=== PATIENT | female | born 1945 | race Caucasian/White ===

== ENCOUNTER → 2016-09-26 | Outpatient (CLI) | payer MEDICARE, BC | LOC: MW.CHFP 08:00 | PROVIDERS: ATTEND Nurse Practitioner Family | DX: J32.9 Chronic sinusitis, unspecified (principal); H10.9 Unspecified conjunctivitis | CPT/HCPCS: G0463 ==

== ENCOUNTER → 2016-10-23 | Outpatient (CLI) | payer MEDICARE, BC | LOC: MW.CHIM 08:00 | PROVIDERS: ATTEND Internal Medicine | DX: H10.33 Unspecified acute conjunctivitis, bilateral (principal) | CPT/HCPCS: G0463 ==

== ENCOUNTER → 2016-11-11 | Outpatient (CLI) | payer MEDICARE, BC ==
[2016-11-11 11:12] LABS: CHLORIDE,CL 105 mmol/L (98-110); SODIUM,NA 140 mmol/L (136-146)
== END ==
LOC: MW.CHIM 10:10
PROVIDERS: ATTEND Internal Medicine
DX: E11.9 Type 2 diabetes mellitus without complications (principal); I10 Essential (primary) hypertension; E78.5 Hyperlipidemia, unspecified
CPT/HCPCS: 36415; 80053; 80061; 83036

== ENCOUNTER → 2016-11-11 | Outpatient (CLI) | payer MEDICARE, BC | END | disposition home or self-care (01) | LOC: MW.LAB 10:08 | PROVIDERS: ATTEND Internal Medicine | DX: E11.9 Type 2 diabetes mellitus without complications (principal); E78.5 Hyperlipidemia, unspecified; I10 Essential (primary) hypertension | CPT/HCPCS: 36415; 80053; 80061; 83036; 84100 ==

== ENCOUNTER → 2016-11-13 | Outpatient (CLI) | payer MEDICARE, BC ==
--- NOTE | 2016-11-13 16:48 | CR ---
EXAMINATION: Two-view chest (PA and Lateral views). HISTORY: Heart failure. Comparison: 08/12/2016, 04/12/2016. FINDINGS: The trachea is midline. The cardiomediastinal silhouette is within normal limits. Mild hazy bibasila r atelectasis/infiltrate. No pleural effusion or pneumothorax. Mild aortic calcifications are noted. Osseous structures appear unremarkable. IMPRESSION: Mild bibasilar atelectasis/infiltrate.
== END ==
LOC: MW.CHIM 14:51
PROVIDERS: ATTEND Internal Medicine
DX: I50.9 Heart failure, unspecified (principal); J40 Bronchitis, not specified as acute or chronic; R91.8 Other nonspecific abnormal finding of lung field; J44.1 Chronic obstructive pulmonary disease with (acute) exacerbation; J84.9 Interstitial pulmonary disease, unspecified; E11.65 Type 2 diabetes mellitus with hyperglycemia; D89.9 Disorder involving the immune mechanism, unspecified
CPT/HCPCS: 36415; 71020; 83880; 85025; 96372; 99214; J1040

== ENCOUNTER → 2016-11-21 | Outpatient (CLI) | payer MEDICARE, BC ==
--- NOTE | 2016-11-21 20:56 | MR ---
EXAM DATE: 11/21/16 PATIENT'S AGE: 70 Patient: MULUGETA RONDON Facility: [place], [place] Site Site : 1945 Study: MRI Abdomen Angio [id number]/[id number] 1:29:37 PM Ordering Physician: GRACE GRIFFITHS MD Final Report: Indication: 70-year-old with hypertension, concern for underlying renal artery stenosis Comparison: None available. Technique: MRI of the abdomen was performed with the following sequences: axial and coronal T2 HASTE, axial T2 fat saturated, axial diffusion, axial T1 in and out of phase, axial and coronal 3D T1 weighted. Postcontrast images were not able to be obtained as patient was unable to tolerate lying supine for the remainder of the examination. Contrast: None. Findings: Please note exam is technically limited due to significant respiratory motion artifact. Additionally, postcontrast imaging of the renal arteries was not obtained as patient could not further tolerate lying supine so remainder of examination. Kidneys: Size: Right kidney measures 9.7 cm and left kidney measures 10.1 cm. Hydronephrosis: Vessels: Renal arteries appear normal in caliber bilaterally without evidence for renal artery stenosis or fibromuscular dysplasia. Retroaortic left renal vein is incidentally noted. Lesions: Bilateral renal cysts are present. Other abdominal organs: Noncirrhotic liver with diffuse signal dropout on opposed phase imaging consistent with fatty infiltration. Gallbladder not visualized and likely surgically absent. No adrenal mass. Spleen is unremarkable. 7 mm T2 hyperintense lesion within the main pancreatic body without demonstrable communication to the main pancreatic duct. Impression: 1. Limited noncontrast MRI evaluation as noted above. No gross evidence for renal artery stenosis or fibromuscular dysplasia. If clinically warranted, further evaluation with renal artery ultrasound may be helpful. 2. Hepatic steatosis. 3. 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 If clinically warranted, further evaluation with MRCP may be helpful. Dictated by George Bess MD @ Nov 21 2016 2:51PM (Electronic Signature) Report Signed by Proxy. [facility]
--- NOTE | 2016-11-21 21:01 | MR ---
EXAM DATE: 11/21/16 PATIENT'S AGE: 70 Patient: MULUGETA RONDON Facility: [place], [place] Site Site : 1945 Study: MRI Abdomen [id number]/12/2017 1:31:20 PM Ordering Physician: GRACE GRIFFITHS MD Final Report: Indication: 70-year-old with hypertension, concern for underlying renal artery stenosis Comparison: None available. Technique: MRI of the abdomen was performed with the following sequences: axial and coronal T2 HASTE, axial T2 fat saturated, axial diffusion, axial T1 in and out of phase, axial and coronal 3D T1 weighted. Postcontrast images were not able to be obtained as patient was unable to tolerate lying supine for the remainder of the examination. Contrast: None. Findings: Please note exam is technically limited due to significant respiratory motion artifact. Additionally, postcontrast imaging of the renal arteries was not obtained as patient could not further tolerate lying supine so remainder of examination. Kidneys: Size: Right kidney measures 9.7 cm and left kidney measures 10.1 cm. Hydronephrosis: Vessels: Renal arteries appear normal in caliber bilaterally without evidence for renal artery stenosis or fibromuscular dysplasia. Retroaortic left renal vein is incidentally noted. Lesions: Bilateral renal cysts are present. Other abdominal organs: Noncirrhotic liver with diffuse signal dropout on opposed phase imaging consistent with fatty infiltration. Gallbladder not visualized and likely surgically absent. No adrenal mass. Spleen is unremarkable. 7 mm T2 hyperintense lesion within the main pancreatic body without demonstrable communication to the main pancreatic duct. Impression: 1. Limited noncontrast MRI evaluation as noted above. No gross evidence for renal artery stenosis or fibromuscular dysplasia. If clinically warranted, further evaluation with renal artery ultrasound may be helpful. 2. Hepatic steatosis. 3. 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 If clinically warranted, further evaluation with MRCP may be helpful. Dictated by George Bess MD @ Nov 21 2016 2:51PM (Electronic Signature) Report Signed by Proxy. [facility]
== END ==
LOC: MW.MRI 09:57
PROVIDERS: ATTEND Internal Medicine
DX: I10 Essential (primary) hypertension (principal); K76.0 Fatty (change of) liver, not elsewhere classified; K86.2 Cyst of pancreas
CPT/HCPCS: 74181; 74181-26; 74185; 74185-26

== ENCOUNTER → 2016-11-24 | Outpatient (CLI) | payer MEDICARE, BC ==
--- NOTE | 2016-11-26 10:43 | ECHO ---
EXAM DATE: 11/24/16 PATIENT'S AGE: 70 The echocardiogram report can be seen in this patient's EMR (Electronic Medical Record) in the Reports section. [facility]
== END ==
LOC: MW.US 10:42
PROVIDERS: ATTEND Internal Medicine
DX: I50.9 Heart failure, unspecified (principal); I34.0 Nonrheumatic mitral (valve) insufficiency; I51.7 Cardiomegaly
CPT/HCPCS: 93306

== ENCOUNTER → 2016-11-27 | Outpatient (CLI) | payer MEDICARE, BC | LOC: MW.CHIM 14:50 | PROVIDERS: ATTEND Internal Medicine | DX: I50.9 Heart failure, unspecified (principal); J44.9 Chronic obstructive pulmonary disease, unspecified; J84.9 Interstitial pulmonary disease, unspecified | CPT/HCPCS: 36415; 80048; 83880; G0463 ==

== ENCOUNTER → 2016-12-02 | Outpatient (CLI) | payer MEDICARE, BC | LOC: MW.LAB 10:07 | PROVIDERS: ATTEND Internal Medicine | DX: I70.1 Atherosclerosis of renal artery (principal); I10 Essential (primary) hypertension | CPT/HCPCS: 36415; 80069 ==

== ENCOUNTER 2017-07-05 09:45 | Inpatient (IN) | payer MEDICARE, BC ==
--- NOTE | 2017-07-05 09:52 | EDM.PDOC ---
ED HPI GENERAL MEDICAL PROBLEM - General Chief Complaint: Respiratory Problem Stated Complaint: AMB Time Seen by Provider: 07/05/17 09:48 Source of Information: Reports: Patient - History of Present Illness INITIAL COMMENTS - FREE TEXT/NARRATIVE: HISTORY AND PHYSICAL: History of present illness: [Patient presents via EMS with shortness of breath and weakness On EMS arrival to her home she was satting 82% on room air generally weak, clinically worsening with minimal effort. They did get her on their gurney and provided albuterol neb and 6 L of oxygen with this she did come up into the 90s for an O2 sat in on arrival she is speaking clearly with no distress and smiling She remains generally weak however in no acute distress at this time No fever nausea vomiting chills sweats no chest pain headache dizziness or palpitation no bowel or urine symptoms] Review of systems: As per history of present illness and below otherwise all systems reviewed and negative. Past medical history: As per history of present illness and as reviewed below otherwise noncontributory. Surgical history: As per history of present illness and as reviewed below otherwise noncontributory. Social history: No reported history of drug or alcohol abuse. Family history: As per history of present illness and as reviewed below otherwise noncontributory. Physical exam: HEENT: Atraumatic, normocephalic, pupils reactive, negative for conjunctival pallor or scleral icterus, mucous membranes moist, throat clear, neck supple, nontender, trachea midline. Lungs: Clear to auscultation, breath sounds equal bilaterally, chest nontender. No accessory muscles Heart: S1S2, regular, negative for clicks, rubs, or JVD. Abdomen: Soft, nondistended, nontender. Negative for masses or hepatosplenomegaly. Negative for costovertebral tenderness. Pelvis: Stable nontender. Genitourinary: Deferred. Rectal: Deferred. Extremities: Atraumatic, negative for cords or calf pain. Neurovascular unremarkable. Neuro: Awake, alert, oriented. Cranial nerves II through XII unremarkable. Cerebellum unremarkable. Motor and sensory unremarkable throughout. Exam nonfocal. Diagnostics: [Chest 1 view Lab as below EKG ] Therapeutics: [Normal saline 1 25 mL per hour Solu-Medrol 125 mg IV Albuterol neb provided in route via EMS O2 remains at 4 L nasal cannula Patient admitted to Dr. Roach ] Impression: [Hypoxia Recent flulike symptoms/pneumonia on digoxin doxycycline History of lung cancer ] Definitive disposition and diagnosis as appropriate pending reevaluation and review of above. headache Pain Score (Numeric/FACES): 6 - Related Data Allergies Allergy/AdvReac Type Severity Reaction Status Date / Time GIGI Inhibitors Allergy Nausea Verified 04/12/16 14:21 amlodipine besylate Allergy Nausea Verified 04/12/16 14:21 [From Lotrel] benazepril HCl [From Lotrel] Allergy Nausea Verified 04/12/16 14:21 cephalexin [Cephalexin] Allergy Nausea Verified 04/12/16 14:21 ibuprofen [From Advil] Allergy Nausea Verified 04/12/16 14:21 levofloxacin [From Levaquin] Allergy Nausea Verified 04/12/16 14:21 metformin Allergy Nausea Verified 04/12/16 14:21 Penicillins Allergy Nausea Verified 04/12/16 14:21 promethazine Allergy Hallucinati Verified 04/12/16 14:21 ons Home Meds: Home Meds Darifenacin [Enablex] 7.5 mg PO DAILY 10/17/13 [History] Doxazosin [Doxazosin Mesylate] 2 mg PO BEDTIME 10/17/13 [History] Montelukast [Singulair] 10 mg PO Q8HR 10/17/13 [History] traMADol [Ultram] 50 mg PO TID PRN 10/17/13 [History] Albuterol [Ventolin HFA] 2 inh IH Q6H PRN 04/12/16 [History] Aspirin [Halfprin] 81 mg PO DAILY 04/12/16 [History] Budesonide/Formoterol [Symbicort 160-4.5 Mcg Inhaler] 2 inh IH BID 04/12/16 [ History] Insulin Aspart [Novolog Flexpen] 35 unit SUBCUT ACBREAKFAST 04/12/16 [History] Insulin Aspart [Novolog Flexpen] 35 units SUBCUT ACDINNER 04/12/16 [History] Insulin Aspart [Novolog Flexpen] 40 units SUBCUT ACLUNCH 04/12/16 [History] Rosuvastatin Calcium [Crestor] 5 mg PO BEDTIME 04/12/16 [History] Past Medical History Cardiovascular History: Reports: Hypertension Respiratory History: Reports: Asthma, Interstitial Lung Disease Musculoskeletal History: Reports: Arthritis, Back Pain, Chronic, Other (See Below) Other Musculoskeletal History: chronic knee pain Neurological History: Reports: Other (See Below) Other Neuro History: restless legs Endocrine/Metabolic History: Reports: Diabetes, Type II, Other (See Below) Other Endocrine/Metabolic History: chronic steriod use Social & Family History - Family History Family Medical History: Noncontributory - Tobacco Use Smoking Status *Q: Never Smoker Years of Tobacco use: 30 Used Tobacco, but Quit: Yes Month Tobacco Last Used: 06/1996 Second Hand Smoke Exposure: No - Caffeine Use Caffeine Use: Reports: None - Alcohol Use Days Per Week of Alcohol Use: 0 - Recreational Drug Use Recreational Drug Use: No ED ROS GENERAL - Review of Systems Review Of Systems: ROS reveals no pertinent complaints other than HPI. ED EXAM, GENERAL - Physical Exam Exam: See Below Course - Vital Signs Last Recorded V/S: Last Vital Signs Temp 98.8 F 07/05/17 09:48 Pulse 81 07/05/17 09:48 Resp 18 07/05/17 09:48 BP 167/56 H 07/05/17 09:48 Pulse Ox 93 L 07/05/17 09:48 - Orders/Labs/Meds Orders: Active Orders 24 hr Category Date Time Status EKG Documentation Completion [RC] STAT Care 07/05/17 09:47 Active Chest 1V Frontal [CR] Stat Exams 07/05/17 09:47 Taken UA W/MICROSCOPIC [URIN] Stat Lab 07/05/17 09:47 Uncollected Sodium Chloride 0.9% [Normal Saline] 1,000 ml Med 07/05/17 10:00 Active IV STAT Medication Orders Sodium Chloride (Normal Saline) 1,000 mls @ 125 mls/hr IV STAT RODRIGO Last Admin: 07/05/17 10:39 Dose: 125 mls/hr Labs: Laboratory Tests 07/05/17 07/05/17 07/05/17 Range/Units 09:59 09:59 09:59 WBC 13.74 H (4.0-11.0) K/uL RBC 3.81 L (4.30-5.90) M/uL Hgb 12.1 (12.0-16.0) g/dL Hct 36.5 (36.0-46.0) % MCV 95.8 (80.0-98.0) fL MCH 31.8 (27.0-32.0) pg MCHC 33.2 (31.0-37.0) g/dL RDW Std Deviation 52.5 (28.0-62.0) fl RDW Coeff of Donovan 15 (11.0-15.0) % Plt Count 213 (150-400) K/uL MPV 9.70 (7.40-12.00) fL Add Manual Diff YES Neutrophils % (Manual) 79 (48.0-80.0) % Lymphocytes % (Manual) 11 L (16.0-40.0) % Monocytes % (Manual) 10 (0.0-15.0) % Nucleated RBC % 0.0 /100WBC Absolute Seg Neuts 10.9 H (1.4-5.7) Lymphocytes # (Manual) 1.5 (0.6-2.4) Monocytes # (Manual) 1.4 H (0.0-0.8) Nucleated RBCs # 0 K/uL Sodium 137 (136-146) mmol/L Potassium 4.5 (3.5-5.1) mmol/L Chloride 103 (98-110) mmol/L Carbon Dioxide 22 (21-31) mmol/L BUN 15 (6.0-23.0) mg/dL Creatinine 0.8 (0.6-1.5) mg/dL Est Cr Clr Drug Dosing 53.35 mL/min Estimated GFR (MDRD) > 60.0 ml/min Glucose 211 H (60-110) mg/dL Calcium 9.4 (8.8-10.8) mg/dL Total Bilirubin 1.1 (0.1-1.5) mg/dL AST 17 (5-40) IU/L ALT 23 (8-54) IU/L Alkaline Phosphatase 71 (40-150) Creatine Kinase 23 (9-236) IU/L CK-MB (CK-2) 0.7 (0-6.6) ng/ml Troponin I < 0.10 (0.0-0.29) NG/ML B-Natriuretic Peptide 328 H (<100) PG/ML Total Protein 6.2 (6.0-8.0) g/dL Albumin 3.0 L (3.4-4.8) g/dL Globulin 3.2 (2.0-3.5) g/dL Albumin/Globulin Ratio 0.9 L (1.3-2.8) Meds: Medications Generic Name Dose Route Start Last Admin Trade Name Jaclyn PRN Reason Stop Dose Admin Sodium Chloride 1,000 mls @ 125 mls/hr 07/05/17 10:00 07/05/17 10:39 Normal Saline IV 125 mls/hr STAT RODRIGO Administration Discontinued Medications Generic Name Dose Route Start Last Admin Trade Name Jaclyn PRN Reason Stop Dose Admin Acetaminophen 650 mg 07/05/17 10:41 Tylenol PO 07/05/17 10:42 NOW ONE Furosemide Confirm 07/05/17 11:24 Lasix Administered 07/05/17 11:25 Dose 40 mg .ROUTE .STK-MED ONE Sodium Chloride Confirm 07/05/17 11:29 Normal Saline Administered 07/05/17 11:30 Dose 50 mls @ as directed .ROUTE .STK-MED ONE Methylprednisolone Sodium Succinate Confirm 07/05/17 11:26 Solu-Medrol Administered 07/05/17 11:27 Dose 125 mg .ROUTE .STK-MED ONE Departure - Departure Time of Disposition: 17:20 Disposition: Admitted As Inpatient 66 Condition: Fair Clinical Impression: Hypoxia, COPD (chronic obstructive pulmonary disease) - Discharge Information Forms: ED Department Discharge - My Orders Last 24 Hours: My Active Orders 07/05/17 09:47 EKG Documentation Completion [RC] STAT Chest 1V Frontal [CR] Stat UA W/MICROSCOPIC [URIN] Stat 07/05/17 10:00 Sodium Chloride 0.9% [Normal Saline] 1,000 ml IV STAT - Assessment/Plan Last 24 Hours: My Active Orders 07/05/17 09:47 EKG Documentation Completion [RC] STAT Chest 1V Frontal [CR] Stat UA W/MICROSCOPIC [URIN] Stat 07/05/17 10:00 Sodium Chloride 0.9% [Normal Saline] 1,000 ml IV STAT
[2017-07-05] MEDS ORDERED: Sodium Chloride 0.9% 1,000 ML IV SCH (10:00)
[2017-07-05 10:28] LABS: CHLORIDE,CL 103 mmol/L (98-110); SODIUM,NA 137 mmol/L (136-146)
[2017-07-05] MEDS ORDERED: Acetaminophen 325 MG Tab PO ONE (10:41)
[2017-07-05] MEDS ORDERED: Furosemide 40 MG/4 ML VIAL ONE (11:24)
[2017-07-05] MEDS ORDERED: methylPREDNISolone Sodium Succinate 125 MG/2 ML SDV ONE (11:26)
[2017-07-05] MEDS ORDERED: Piperacillin/Tazobactam 3.375 GM in Sodium Chloride 0.9% 50 ML IV ONE (11:28)
[2017-07-05] MEDS ORDERED: Furosemide 40 MG/4 ML VIAL IV ONE (11:28)
[2017-07-05] MEDS ORDERED: methylPREDNISolone Sodium Succinate 125 MG/2 ML SDV IM ONE (11:28)
[2017-07-05] MEDS ORDERED: Sodium Chloride 0.9% 50 ML ONE (11:29)
[2017-07-05] MEDS ORDERED: Heparin Sodium 5,000 Units/ML Vial IV ONE (15:06)
[2017-07-05] MEDS ORDERED: Insulin Aspart 100 Units/ML 3 ML Pen SUBCUT ONE (17:14)
[2017-07-05] MEDS: Albuterol/Ipratropium 3.0-0.5 MG/3 ML Neb Soln NEB SCH ×2 (17:58→23:42)
[2017-07-05] MEDS ORDERED: Ondansetron 4 MG Tab.DIS PO PRN (20:59)
[2017-07-05] MEDS ORDERED: Furosemide 40 MG/4 ML VIAL IVPUSH SCH (21:00)
[2017-07-05] MEDS ORDERED: Albuterol/Ipratropium 3.0-0.5 MG/3 ML Neb Soln NEB SCH (21:15)
[2017-07-05] MEDS: Piperacillin/Tazobactam 4.5 GM in Sodium Chloride 0.9% 100 ML IV SCH (21:53)
[2017-07-05] MEDS: Furosemide 40 MG/4 ML VIAL IVPUSH SCH (21:55)
[2017-07-05] MEDS ORDERED: Montelukast 10 MG Tab PO SCH (22:00)
[2017-07-05] MEDS: Heparin Sodium 5,000 Units/ML Vial SUBCUT SCH (22:00)
[2017-07-05] MEDS: Insulin Detemir 100 Units/ML 3 ML Pen SUBCUT SCH (22:04)
[2017-07-05] MEDS: traMADol 50 MG Tab PO PRN (22:16)
[2017-07-05] MEDS ORDERED: hydrALAZINE 20 MG/ML SDV IVPUSH ONE (23:20)
[2017-07-05] MEDS ORDERED: Albuterol/Ipratropium 3.0-0.5 MG/3 ML Neb Soln ONE (23:40)
[2017-07-06] MEDS: Piperacillin/Tazobactam 4.5 GM in Sodium Chloride 0.9% 100 ML IV SCH ×2 (03:38→08:30)
[2017-07-06] MEDS: Heparin Sodium 5,000 Units/ML Vial SUBCUT SCH ×3 (05:46→21:27)
[2017-07-06] MEDS ORDERED: Albuterol/Ipratropium 3.0-0.5 MG/3 ML Neb Soln ONE (05:51)
[2017-07-06] MEDS: Albuterol/Ipratropium 3.0-0.5 MG/3 ML Neb Soln NEB SCH ×4 (05:55→23:19)
[2017-07-06] MEDS ORDERED: Insulin Aspart 100 Units/ML 3 ML Pen SUBCUT SCH ×3 (07:30→17:00)
[2017-07-06 07:37] LABS: CHLORIDE,CL 101 mmol/L (98-110); SODIUM,NA 138 mmol/L (136-146)
--- NOTE | 2017-07-06 07:40 | PCM.HP ---
H&P History of Present Illness - General Date of Service: 07/05/17 Admit Problem/Dx: Admission Diagnosis/Problem Admission Diagnosis/Problem Shortness of breath Source of Information: Patient History Limitations: Reports: No Limitations - History of Present Illness Initial Comments - Free Text/Narative: See computer support specialist system down. headache Pain Score (Numeric/FACES): 5 - Related Data Allergies/Adverse Reactions: Allergies Allergy/AdvReac Type Severity Reaction Status Date / Time GIGI Inhibitors Allergy Nausea Verified 04/12/16 14:21 amlodipine besylate Allergy Nausea Verified 04/12/16 14:21 [From Lotrel] benazepril HCl [From Lotrel] Allergy Nausea Verified 04/12/16 14:21 cephalexin [Cephalexin] Allergy Nausea Verified 04/12/16 14:21 ibuprofen [From Advil] Allergy Nausea Verified 04/12/16 14:21 levofloxacin [From Levaquin] Allergy Nausea Verified 04/12/16 14:21 metformin Allergy Nausea Verified 04/12/16 14:21 Penicillins Allergy Nausea Verified 04/12/16 14:21 promethazine Allergy Hallucinati Verified 04/12/16 14:21 ons Home Medications: Home Meds Darifenacin [Enablex] 7.5 mg PO DAILY 10/17/13 [History] Doxazosin [Doxazosin Mesylate] 8 mg PO BEDTIME 10/17/13 [History] Montelukast [Singulair] 10 mg PO DAILY 10/17/13 [History] traMADol [Ultram] 50 mg PO TID PRN 10/17/13 [History] Albuterol [Ventolin HFA] 2 inh IH Q6H PRN 04/12/16 [History] Aspirin [Halfprin] 81 mg PO DAILY 04/12/16 [History] Budesonide/Formoterol [Symbicort 160-4.5 Mcg Inhaler] 2 inh IH BID 04/12/16 [ History] Insulin Aspart [Novolog Flexpen] 35 unit SUBCUT ACBREAKFAST 04/12/16 [History] Insulin Aspart [Novolog Flexpen] 35 units SUBCUT ACDINNER 04/12/16 [History] Insulin Aspart [Novolog Flexpen] 40 units SUBCUT ACLUNCH 04/12/16 [History] Rosuvastatin Calcium [Crestor] 10 mg PO BEDTIME 04/12/16 [History] Carvedilol 25 mg PO BID 07/06/17 [History] Cholecalciferol (Vitamin D3) [Vitamin D3] 2,000 units PO DAILY 07/06/17 [History ] Fexofenadine [Kim] 180 mg PO DAILY 07/06/17 [History] Ondansetron HCl [Zofran] 4 mg PO TID PRN 07/06/17 [History] Potassium Chloride [Klor-Con M20] 20 meq PO BID 07/06/17 [History] Spironolactone [Aldactone] 25 mg PO DAILY 07/06/17 [History] Ubidecarenone [Coq-10] 100 mg PO DAILY 07/06/17 [History] rOPINIRole HCl [Ropinirole HCl] 0.5 mg PO BEDTIME 07/06/17 [History] Past Medical History HEENT History: Reports: None Cardiovascular History: Reports: Hypertension Respiratory History: Reports: Asthma, Interstitial Lung Disease Gastrointestinal History: Reports: None Genitourinary History: Reports: None 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 Musculoskeletal History: Reports: Arthritis, Back Pain, Chronic, Other (See Below) Other Musculoskeletal History: chronic knee pain Neurological History: Reports: Other (See Below) Other Neuro History: restless legs Psychiatric History: Reports: None Endocrine/Metabolic History: Reports: Diabetes, Type II, Other (See Below) Other Endocrine/Metabolic History: chronic steriod use Hematologic History: Reports: None Immunologic History: Reports: None Oncologic (Cancer) History: Reports: Lung Dermatologic History: Reports: None - Infectious Disease History Infectious Disease History: Reports: Chicken Pox - Past Surgical History Head Surgeries/Procedures: Reports: None HEENT Surgical History: Reports: None Cardiovascular Surgical History: Reports: None Respiratory Surgical History: Reports: Lung Biopsies GI Surgical History: Reports: None Female Surgical History: Reports: None Endocrine Surgical History: Reports: None Neurological Surgical History: Reports: None Musculoskeletal Surgical History: Reports: None Oncologic Surgical History: Reports: None Dermatological Surgical History: Reports: None Social & Family History - Family History Family Medical History: Noncontributory - Tobacco Use Smoking Status *Q: Never Smoker Years of Tobacco use: 30 Used Tobacco, but Quit: Yes Month Tobacco Last Used: 06/1996 Second Hand Smoke Exposure: No - Caffeine Use Caffeine Use: Reports: None - Alcohol Use Days Per Week of Alcohol Use: 0 - Recreational Drug Use Recreational Drug Use: No H&P Review of Systems - Review of Systems: Review Of Systems: See Below Free Text/Narrative: See computer support specialist system down. Exam - Exam Exam: See Below - Vital Signs Vital Signs: Last Vital Signs Temp 97.1 F 07/06/17 03:58 Pulse 74 07/06/17 03:58 Resp 20 07/06/17 03:58 BP 118/59 L 07/06/17 03:58 Pulse Ox 95 07/06/17 03:58 Weight: 121.5 kg - Exam Physical Exam Comments:: See computer support specialist system down. - Patient Data Lab Results Last 24 hrs: Laboratory Results - last 24 hr 07/05/17 07/05/17 07/05/17 Range/Units 13:47 16:53 20:29 WBC (4.0-11.0) K/uL RBC (4.30-5.90) M/uL Hgb (12.0-16.0) g/dL Hct (36.0-46.0) % MCV (80.0-98.0) fL MCH (27.0-32.0) pg MCHC (31.0-37.0) g/dL RDW Std Deviation (28.0-62.0) fl RDW Coeff of Donovan (11.0-15.0) % Plt Count (150-400) K/uL MPV (7.40-12.00) fL Neut % (Auto) (48.0-80.0) % Lymph % (Auto) (16.0-40.0) % [place] % (Auto) (0.0-15.0) % Eos % (Auto) (0.0-7.0) % Baso % (Auto) (0.0-1.5) % Neut # (Auto) (1.4-5.7) K/uL Lymph # (Auto) (0.6-2.4) K/uL [place] # (Auto) (0.0-0.8) K/uL Eos # (Auto) (0.0-0.7) K/uL Baso # (Auto) (0.0-0.1) K/uL Nucleated RBC % /100WBC Nucleated RBCs # K/uL Lactate 1.3 (0.20-2.00) mmol/L POC Glucose 223 H 344 H (60-110) mg/dL 07/05/17 07/06/17 07/06/17 Range/Units 21:16 06:18 06:25 WBC 10.46 (4.0-11.0) K/uL RBC 3.74 L (4.30-5.90) M/uL Hgb 11.9 L (12.0-16.0) g/dL Hct 34.9 L (36.0-46.0) % MCV 93.3 (80.0-98.0) fL MCH 31.8 (27.0-32.0) pg MCHC 34.1 (31.0-37.0) g/dL RDW Std Deviation 50.7 (28.0-62.0) fl RDW Coeff of [place] 15 (11.0-15.0) % Plt Count 227 (150-400) K/uL MPV 9.80 (7.40-12.00) fL Neut % (Auto) 86.3 H (48.0-80.0) % Lymph % (Auto) 7.3 L (16.0-40.0) % [place] % (Auto) 6.3 (0.0-15.0) % Eos % (Auto) 0.0 (0.0-7.0) % Baso % (Auto) 0.1 (0.0-1.5) % Neut # (Auto) 9.0 H (1.4-5.7) K/uL Lymph # (Auto) 0.8 (0.6-2.4) K/uL [place] # (Auto) 0.7 (0.0-0.8) K/uL Eos # (Auto) 0.0 (0.0-0.7) K/uL Baso # (Auto) 0.0 (0.0-0.1) K/uL Nucleated RBC % 0.0 /100WBC Nucleated RBCs # 0 K/uL Lactate (0.20-2.00) mmol/L POC Glucose 310 H 284 H (60-110) mg/dL Result Diagrams: 07/06/17 06:25 07/05/17 09:59 *Q Meaningful Use (ADM) - VTE *Q VTE Criteria *Q: - Stroke *Q Stroke Criteria *Q: - AMI *Q AMI Criteria *Q: Problem List Initiated/Reviewed/Updated: Yes Orders Last 24hrs: Active Orders 24 hr Category Date Time Status Patient Status [ADT] Routine ADT 07/05/17 20:59 Active Antiembolic Devices [RC] PER UNIT ROUTINE Care 07/05/17 21:02 Active Blood Glucose Check, Bedside [RC] QIDACANDBED Care 07/05/17 20:59 Active Daily Weight [Height and Weight] [RC] DAILY Care 07/06/17 06:00 Active Intake and Output [RC] Q12H Care 07/05/17 21:01 Active Oxygen Therapy [RC] PRN Care 07/05/17 20:59 Active RT Aerosol Therapy [RC] ASDIRECTED Care 07/05/17 17:57 Active RT Aerosol Therapy [RC] ASDIRECTED Care 07/05/17 21:10 Active Telemetry Monitoring [Cardiac Monitoring] [RC] Q8H Care 07/06/17 13:12 Active Up With Assistance [RC] ASDIRECTED Care 07/05/17 20:59 Active VTE/DVT Education [RC] PER UNIT ROUTINE Care 07/05/17 20:59 Active Vital Signs [RC] Q4H Care 07/05/17 20:59 Active Echo 2D wo Cont [US] Routine Exams 07/05/17 21:05 Ordered CBC WITH AUTO DIFF [HEME] AM Lab 07/07/17 05:11 Ordered CBC WITH AUTO DIFF [HEME] AM Lab 07/08/17 05:11 Ordered CBC WITH AUTO DIFF [HEME] AM Lab 07/09/17 05:11 Ordered COMPREHENSIVE METABOLIC PN,CMP [CHEM] AM Lab 07/06/17 06:25 Received COMPREHENSIVE METABOLIC PN,CMP [CHEM] AM Lab 07/07/17 05:11 Ordered COMPREHENSIVE METABOLIC PN,CMP [CHEM] AM Lab 07/08/17 05:11 Ordered COMPREHENSIVE METABOLIC PN,CMP [CHEM] AM Lab 07/09/17 05:11 Ordered CULTURE BLOOD [BC] Routine Lab 07/05/17 13:30 Received CULTURE BLOOD [BC] Routine Lab 07/05/17 13:47 Received CULTURE SPUTUM + SMEAR [RM] Routine Lab 07/05/17 12:20 Uncollected MAGNESIUM [CHEM] AM Lab 07/06/17 06:25 Received PHOSPHORUS [CHEM] AM Lab 07/06/17 06:25 Received Albuterol/Ipratropium [DuoNeb 3.0-0.5 MG/3 ML] Med 07/05/17 18:00 Active 3 ml NEB Q6HRRT Aspirin [Halfprin] Med 07/06/17 09:00 Active 81 mg PO DAILY Budesonide/Formoterol Med 07/06/17 09:00 Active 2 inh IH BID Darifenacin [Enablex] Med 07/06/17 09:00 Active 7.5 mg PO DAILY Doxazosin [Cardura] Med 07/06/17 21:00 Active 2 mg PO BEDTIME Furosemide [Lasix] Med 07/05/17 21:15 Active 80 mg IVPUSH BID Heparin Sodium Med 07/05/17 21:00 Active 5,000 units SUBCUT Q8H Insulin Aspart [NovoLOG] Med 07/06/17 07:30 Active 35 unit SUBCUT ACBREAKFAST Insulin Aspart [NovoLOG] Med 07/06/17 17:00 Active 35 unit SUBCUT ACDINNER Insulin Aspart [NovoLOG] Med 07/06/17 11:30 Active 40 unit SUBCUT ACLUNCH Insulin Detemir [Levemir] Med 07/05/17 21:00 Active 55 unit SUBCUT BEDTIME Montelukast [Singulair] Med 07/06/17 09:00 Active 10 mg PO DAILY Ondansetron [Zofran ODT] Med 07/05/17 20:59 Active 4 mg PO Q4H PRN Piperacillin/Tazobactam [Piperacil-Tazobact] 4.5 gm Med 07/05/17 21:00 Active Sodium Chloride 0.9% [Normal Saline] 100 ml IV Q6H Rosuvastatin [Crestor] Med 07/06/17 21:00 Active 5 mg PO BEDTIME traMADol [Ultram] Med 07/05/17 21:07 Active 50 mg PO TID PRN Sequential Compression Device [OM.PC] Per Unit Routine Oth 07/05/17 21:01 Ordered Resuscitation Status Routine Resus Stat 07/05/17 20:59 Ordered Medication Orders Albuterol/Ipratropium (Duoneb 3.0-0.5 Mg/3 Ml) 3 ml NEB Q6HRRT RODRIGO Last Admin: 07/06/17 05:55 Dose: 3 ml Admin: 07/05/17 23:42 Dose: 3 ml Admin: 07/05/17 17:58 Dose: 3 ml Aspirin (Halfprin) 81 mg PO DAILY [facility] Doxazosin Mesylate (Cardura) 2 mg PO BEDTIME RODRIGO Furosemide (Lasix) 80 mg IVPUSH BID [facility] Last Admin: 07/05/17 21:55 Dose: 80 mg Heparin Sodium (Porcine) (Heparin Sodium) 5,000 units SUBCUT Q8H [facility] Last Admin: 07/06/17 05:46 Dose: 5,000 units Admin: 07/05/17 22:00 Dose: 5,000 units Piperacillin Sod/Tazobactam (Sod 4.5 gm/ Sodium Chloride) 100 mls @ 100 mls/hr IV Q6H [facility] Last Admin: 07/06/17 03:38 Dose: 100 mls/hr Infusion: 07/05/17 22:53 Dose: 100 mls/hr Admin: 07/05/17 21:53 Dose: 100 mls/hr Insulin Aspart (Novolog) 35 unit SUBCUT ACBREAKFAST [facility] Last Admin: 07/06/17 07:20 Dose: 35 unit Insulin Aspart (Novolog) 35 unit SUBCUT ACDINNER [facility] Insulin Aspart (Novolog) 40 unit SUBCUT ACLUNCH [facility] Insulin Detemir (Levemir) 55 unit SUBCUT BEDTIME [facility] Last Admin: 07/05/17 22:04 Dose: 55 units Montelukast Sodium (Singulair) 10 mg PO DAILY [facility] Non-Formulary Medication (Budesonide/Formoterol) 2 inh IH BID [facility] Non-Formulary Medication (Darifenacin [Enablex]) 7.5 mg PO DAILY [facility] Ondansetron HCl (Zofran Odt) 4 mg PO Q4H PRN PRN Reason: nausea, able to take PO Rosuvastatin Calcium (Crestor) 5 mg PO BEDTIME [facility] Tramadol HCl (Ultram) 50 mg PO TID PRN PRN Reason: Pain Last Admin: 07/05/17 22:16 Dose: 50 mg Assessment/Plan Comment:: See computer support specialist system down.
[2017-07-06] MEDS: Montelukast 10 MG Tab PO SCH (08:34)
[2017-07-06] MEDS: Aspirin 81 MG Tab.EC PO SCH (08:35)
[2017-07-06] MEDS: Furosemide 40 MG/4 ML VIAL IVPUSH SCH ×2 (08:35→21:20)
--- NOTE | 2017-07-06 08:43 | PCM.PN ---
- General Info Date of Service: 07/06/17 Admission Dx/Problem (Free Text): Admission Diagnosis/Problem Admission Diagnosis/Problem Shortness of breath Subjective Update: Tired this morning. Didn't sleep that well. Breathing still labored. Has been urinating well with lasix. No pain. Feels like edema has improved. Functional Status: Reports: Pain Controlled, Tolerating Diet - Review of Systems General: Denies: Fever, Weakness, Fatigue HEENT: Reports: Sore Throat. Denies: Headaches, Visual Changes Pulmonary: Denies: Shortness of Breath, Hemoptysis Cardiovascular: Reports: Edema. Denies: Chest Pain, Palpitations Gastrointestinal: Denies: Abdominal Pain, Nausea, Vomiting Genitourinary: Denies: Dysuria, Hematuria Musculoskeletal: Denies: Neck Pain, Leg Pain Skin: Denies: Cyanosis Neurological: Denies: Confusion, Dizziness, Headache Psychiatric: Denies: Confusion - Patient Data Vitals - Most Recent: Last Vital Signs Temp 97.5 F 07/06/17 07:46 Pulse 79 07/06/17 07:46 Resp 18 07/06/17 07:46 BP 157/59 H 07/06/17 07:46 Pulse Ox 96 07/06/17 07:46 Weight - Most Recent: 121.5 kg I&O - Last 24 Hours: Intake & Output 07/05/17 07/06/17 07/06/17 22:59 06:59 14:59 Intake Total 100 400 Output Total 2700 Balance 100 -2300 Lab Results Last 24 Hours: Laboratory Results - last 24 hr 07/05/17 07/05/17 07/05/17 Range/Units 13:47 16:53 20:29 WBC (4.0-11.0) K/uL RBC (4.30-5.90) M/uL Hgb (12.0-16.0) g/dL Hct (36.0-46.0) % MCV (80.0-98.0) fL MCH (27.0-32.0) pg MCHC (31.0-37.0) g/dL RDW Std Deviation (28.0-62.0) fl RDW Coeff of Donovan (11.0-15.0) % Plt Count (150-400) K/uL MPV (7.40-12.00) fL Neut % (Auto) (48.0-80.0) % Lymph % (Auto) (16.0-40.0) % Cameron % (Auto) (0.0-15.0) % Eos % (Auto) (0.0-7.0) % Baso % (Auto) (0.0-1.5) % Neut # (Auto) (1.4-5.7) K/uL Lymph # (Auto) (0.6-2.4) K/uL Cameron # (Auto) (0.0-0.8) K/uL Eos # (Auto) (0.0-0.7) K/uL Baso # (Auto) (0.0-0.1) K/uL Nucleated RBC % /100WBC Nucleated RBCs # K/uL Lactate 1.3 (0.20-2.00) mmol/L Sodium (136-146) mmol/L Potassium (3.5-5.1) mmol/L Chloride (98-110) mmol/L Carbon Dioxide (21-31) mmol/L BUN (6.0-23.0) mg/dL Creatinine (0.6-1.5) mg/dL Est Cr Clr Drug Dosing mL/min Estimated GFR (MDRD) ml/min Glucose (60-110) mg/dL POC Glucose 223 H 344 H (60-110) mg/dL Calcium (8.8-10.8) mg/dL Phosphorus (2.4-4.7) mg/dL Magnesium (1.5-2.3) mEq/L Total Bilirubin (0.1-1.5) mg/dL AST (5-40) IU/L ALT (8-54) IU/L Alkaline Phosphatase (40-150) Total Protein (6.0-8.0) g/dL Albumin (3.4-4.8) g/dL Globulin (2.0-3.5) g/dL Albumin/Globulin Ratio (1.3-2.8) 07/05/17 07/06/17 07/06/17 Range/Units 21:16 06:18 06:25 WBC 10.46 (4.0-11.0) K/uL RBC 3.74 L (4.30-5.90) M/uL Hgb 11.9 L (12.0-16.0) g/dL Hct 34.9 L (36.0-46.0) % MCV 93.3 (80.0-98.0) fL MCH 31.8 (27.0-32.0) pg MCHC 34.1 (31.0-37.0) g/dL RDW Std Deviation 50.7 (28.0-62.0) fl RDW Coeff of Donovan 15 (11.0-15.0) % Plt Count 227 (150-400) K/uL MPV 9.80 (7.40-12.00) fL Neut % (Auto) 86.3 H (48.0-80.0) % Lymph % (Auto) 7.3 L (16.0-40.0) % Cameron % (Auto) 6.3 (0.0-15.0) % Eos % (Auto) 0.0 (0.0-7.0) % Baso % (Auto) 0.1 (0.0-1.5) % Neut # (Auto) 9.0 H (1.4-5.7) K/uL Lymph # (Auto) 0.8 (0.6-2.4) K/uL Cameron # (Auto) 0.7 (0.0-0.8) K/uL Eos # (Auto) 0.0 (0.0-0.7) K/uL Baso # (Auto) 0.0 (0.0-0.1) K/uL Nucleated RBC % 0.0 /100WBC Nucleated RBCs # 0 K/uL Lactate (0.20-2.00) mmol/L Sodium (136-146) mmol/L Potassium (3.5-5.1) mmol/L Chloride (98-110) mmol/L Carbon Dioxide (21-31) mmol/L BUN (6.0-23.0) mg/dL Creatinine (0.6-1.5) mg/dL Est Cr Clr Drug Dosing mL/min Estimated GFR (MDRD) ml/min Glucose (60-110) mg/dL POC Glucose 310 H 284 H (60-110) mg/dL Calcium (8.8-10.8) mg/dL Phosphorus (2.4-4.7) mg/dL Magnesium (1.5-2.3) mEq/L Total Bilirubin (0.1-1.5) mg/dL AST (5-40) IU/L ALT (8-54) IU/L Alkaline Phosphatase (40-150) Total Protein (6.0-8.0) g/dL Albumin (3.4-4.8) g/dL Globulin (2.0-3.5) g/dL Albumin/Globulin Ratio (1.3-2.8) 07/06/17 Range/Units 06:25 WBC (4.0-11.0) K/uL RBC (4.30-5.90) M/uL Hgb (12.0-16.0) g/dL Hct (36.0-46.0) % MCV (80.0-98.0) fL MCH (27.0-32.0) pg MCHC (31.0-37.0) g/dL RDW Std Deviation (28.0-62.0) fl RDW Coeff of Donovan (11.0-15.0) % Plt Count (150-400) K/uL MPV (7.40-12.00) fL Neut % (Auto) (48.0-80.0) % Lymph % (Auto) (16.0-40.0) % Cameron % (Auto) (0.0-15.0) % Eos % (Auto) (0.0-7.0) % Baso % (Auto) (0.0-1.5) % Neut # (Auto) (1.4-5.7) K/uL Lymph # (Auto) (0.6-2.4) K/uL Cameron # (Auto) (0.0-0.8) K/uL Eos # (Auto) (0.0-0.7) K/uL Baso # (Auto) (0.0-0.1) K/uL Nucleated RBC % /100WBC Nucleated RBCs # K/uL Lactate (0.20-2.00) mmol/L Sodium 138 (136-146) mmol/L Potassium 3.5 (3.5-5.1) mmol/L Chloride 101 (98-110) mmol/L Carbon Dioxide 22 (21-31) mmol/L BUN 23 (6.0-23.0) mg/dL Creatinine 0.9 (0.6-1.5) mg/dL Est Cr Clr Drug Dosing 47.43 mL/min Estimated GFR (MDRD) > 60.0 ml/min Glucose 348 H (60-110) mg/dL POC Glucose (60-110) mg/dL Calcium 8.8 (8.8-10.8) mg/dL Phosphorus 3.3 (2.4-4.7) mg/dL Magnesium 1.3 L (1.5-2.3) mEq/L Total Bilirubin 0.8 (0.1-1.5) mg/dL AST 18 (5-40) IU/L ALT 24 (8-54) IU/L Alkaline Phosphatase 70 (40-150) Total Protein 6.3 (6.0-8.0) g/dL Albumin 2.8 L (3.4-4.8) g/dL Globulin 3.5 (2.0-3.5) g/dL Albumin/Globulin Ratio 0.8 L (1.3-2.8) Med Orders - Current: Current Medications Albuterol/Ipratropium (Duoneb 3.0-0.5 Mg/3 Ml) 3 ml NEB Q6HRRT [facility] Aspirin (Halfprin) 81 mg PO DAILY [facility] Last Admin: 07/06/17 08:35 Dose: 81 mg Doxazosin Mesylate (Cardura) 2 mg PO BEDTIME [facility] Furosemide (Lasix) 80 mg IVPUSH BID [facility] Last Admin: 07/06/17 08:35 Dose: 80 mg Heparin Sodium (Porcine) (Heparin Sodium) 5,000 units SUBCUT Q8H [facility] Last Admin: 07/06/17 05:46 Dose: 5,000 units Piperacillin Sod/Tazobactam (Sod 4.5 gm/ Sodium Chloride) 100 mls @ 100 mls/hr IV Q6H [facility] Last Admin: 07/06/17 08:30 Dose: 100 mls/hr Insulin Aspart (Novolog) 40 unit SUBCUT ACLUNCH [facility] Insulin Aspart (Novolog) 35 unit SUBCUT 0730,1700 [facility] Insulin Detemir (Levemir) 55 unit SUBCUT BEDTIME [facility] Last Admin: 07/05/17 22:04 Dose: 55 units Montelukast Sodium (Singulair) 10 mg PO DAILY [facility] Last Admin: 07/06/17 08:34 Dose: 10 mg Non-Formulary Medication (Budesonide/Formoterol) 2 inh IH BID [facility] Non-Formulary Medication (Darifenacin [Enablex]) 7.5 mg PO DAILY [facility] Ondansetron HCl (Zofran Odt) 4 mg PO Q4H PRN PRN Reason: nausea, able to take PO Rosuvastatin Calcium (Crestor) 5 mg PO BEDTIME [facility] Tramadol HCl (Ultram) 50 mg PO TID PRN PRN Reason: Pain Last Admin: 07/05/17 22:16 Dose: 50 mg Discontinued Medications Acetaminophen (Tylenol) 650 mg PO NOW ONE Stop: 07/05/17 10:42 Last Admin: 07/05/17 23:51 Dose: Not Given Albuterol/Ipratropium (Duoneb 3.0-0.5 Mg/3 Ml) 3 ml NEB Q6HRRT [facility] Last Admin: 07/06/17 05:55 Dose: 3 ml Albuterol/Ipratropium (Duoneb 3.0-0.5 Mg/3 Ml) 3 ml NEB Q4H [facility] Last Admin: 07/05/17 23:52 Dose: Not Given Albuterol/Ipratropium (Duoneb 3.0-0.5 Mg/3 Ml) Confirm Administered Dose 3 ml .ROUTE .STK-MED ONE Stop: 07/05/17 23:41 Last Admin: 07/05/17 23:52 Dose: Not Given Albuterol/Ipratropium (Duoneb 3.0-0.5 Mg/3 Ml) Confirm Administered Dose 3 ml .ROUTE .STK-MED ONE Stop: 07/06/17 05:52 Last Admin: 07/06/17 07:44 Dose: Not Given Furosemide (Lasix) Confirm Administered Dose 40 mg .ROUTE .STK-MED ONE Stop: 07/05/17 11:25 Last Admin: 07/05/17 23:51 Dose: Not Given Furosemide (Lasix) 80 mg IVPUSH BID [facility] Last Admin: 07/05/17 23:52 Dose: Not Given Hydralazine HCl (Apresoline) 10 mg IVPUSH ONETIME ONE Stop: 07/05/17 23:21 Last Admin: 07/05/17 23:44 Dose: 10 mg Sodium Chloride (Normal Saline) 1,000 mls @ 125 mls/hr IV STAT [facility] Last Admin: 07/05/17 10:39 Dose: 125 mls/hr Sodium Chloride (Normal Saline) Confirm Administered Dose 50 mls @ as directed .ROUTE .STK-MED ONE Stop: 07/05/17 11:30 Last Admin: 07/05/17 23:52 Dose: Not Given Insulin Aspart (Novolog) 35 unit SUBCUT ACBREAKFAST [facility] Last Admin: 07/06/17 07:20 Dose: 35 unit Insulin Aspart (Novolog) 35 unit SUBCUT ACDINNER [facility] Methylprednisolone Sodium Succinate (Solu-Medrol) Confirm Administered Dose 125 mg .ROUTE .STK-MED ONE Stop: 07/05/17 11:27 Last Admin: 07/05/17 23:52 Dose: Not Given Montelukast Sodium (Singulair) 10 mg PO Q8HR [facility] Last Admin: 07/06/17 03:14 Dose: Not Given - Exam Quality Assessment: DVT Prophylaxis General: Alert, Oriented, Cooperative HEENT: Pupils Equal, Pupils Reactive, EOMI, Mucous Membr. Moist/[place] Neck: Supple, Trachea Midline, JVD Lungs: Normal Respiratory Effort, Crackles, Wheezing Cardiovascular: Regular Rate, Regular Rhythm, Murmurs GI/Abdominal Exam: Normal Bowel Sounds, Soft, Non-Tender, No Organomegaly, No Distention Back Exam: Normal Inspection, Full Range of Motion Extremities: Normal Inspection, Non-Tender, Normal Capillary Refill, Pedal Edema (+2 pitting edema to ankles) Peripheral Pulses: 2+: Radial (L), Radial (R), Posterior Tibial (L), Posterior Tibial (R), Dorsalis Pedis (L), Dorsalis Pedis (R) Skin: Warm, Dry, Intact Neurological: No New Focal Deficit Psy/Mental Status: Alert, Normal Affect, Normal Mood - Problem List & Annotations (1) Pneumonia SNOMED Code(s): 695996106 Code(s): J18.9 - PNEUMONIA, UNSPECIFIED ORGANISM Status: Acute Priority: High Current Visit: Yes Qualifiers: Pneumonia type: due to unspecified organism Laterality: unspecified laterality Lung location: unspecified part of lung Qualified Code(s): J18.9 - Pneumonia, unspecified organism (2) Acute exacerbation of CHF (congestive heart failure) SNOMED Code(s): 86045670 Code(s): I50.9 - HEART FAILURE, UNSPECIFIED Status: Acute Priority: High Current Visit: Yes Qualifiers: Congestive heart failure type: unspecified congestive heart failure type Qualified Code(s): I50.9 - Heart failure, unspecified (3) Hypertension SNOMED Code(s): 92663044 Code(s): I10 - ESSENTIAL (PRIMARY) HYPERTENSION Status: Acute Current Visit: Yes Qualifiers: Hypertension type: essential hypertension Qualified Code(s): I10 - Essential (primary) hypertension (4) Interstitial pulmonary disease SNOMED Code(s): 264652531 Code(s): J84.9 - INTERSTITIAL PULMONARY DISEASE, UNSPECIFIED Status: Chronic Priority: High Current Visit: Yes (5) Diabetes mellitus SNOMED Code(s): 66456474 Code(s): E11.9 - TYPE 2 DIABETES MELLITUS WITHOUT COMPLICATIONS Status: Chronic Priority: Medium Current Visit: Yes Qualifiers: Diabetes mellitus type: type 2 Diabetes mellitus complication status: with circulatory complication Diabetes mellitus complication detail: with other circulatory complications Diabetes mellitus retirement insulin use: unspecified retirement insulin use status Qualified Code(s): E11.59 - Type 2 diabetes mellitus with other circulatory complications (6) COPD (chronic obstructive pulmonary disease) SNOMED Code(s): 40693751 Code(s): J44.9 - CHRONIC OBSTRUCTIVE PULMONARY DISEASE, UNSPECIFIED Status : Chronic Priority: High Current Visit: Yes Qualifiers: COPD type: unspecified COPD Qualified Code(s): J44.9 - Chronic obstructive pulmonary disease, unspecified - Problem List Review Problem List Initiated/Reviewed/Updated: Yes - My Orders Last 24 Hours: My Active Orders 07/05/17 12:20 CULTURE SPUTUM + SMEAR [] Routine 07/05/17 20:59 Patient Status [ADT] Routine Blood Glucose Check, Bedside [RC] QIDACANDBED Oxygen Therapy [RC] PRN Up With Assistance [RC] ASDIRECTED VTE/DVT Education [RC] PER UNIT ROUTINE Vital Signs [RC] Q4H Ondansetron [Zofran ODT] 4 mg PO Q4H PRN Resuscitation Status Routine 07/05/17 21:00 Heparin Sodium 5,000 units SUBCUT Q8H Insulin Detemir [Levemir] 55 unit SUBCUT BEDTIME Piperacillin/Tazobactam [Piperacil-Tazobact] 4.5 gm Sodium Chloride 0.9% [ Normal Saline] 100 ml IV Q6H 07/05/17 21:01 Intake and Output [RC] Q12H Sequential Compression Device [OM.PC] Per Unit Routine 07/05/17 21:02 Antiembolic Devices [RC] PER UNIT ROUTINE 07/05/17 21:05 Echo 2D wo Cont [US] Routine 07/05/17 21:07 traMADol [Ultram] 50 mg PO TID PRN 07/05/17 21:10 RT Aerosol Therapy [RC] ASDIRECTED 07/05/17 21:15 Furosemide [Lasix] 80 mg IVPUSH BID 07/06/17 06:00 Daily Weight [Height and Weight] [RC] DAILY 07/06/17 09:00 Aspirin [Halfprin] 81 mg PO DAILY Budesonide/Formoterol 2 inh IH BID Darifenacin [Enablex] 7.5 mg PO DAILY Montelukast [Singulair] 10 mg PO DAILY 07/06/17 11:30 Insulin Aspart [NovoLOG] 40 unit SUBCUT ACLUNCH 07/06/17 13:12 Telemetry Monitoring [Cardiac Monitoring] [RC] Q8H 07/06/17 17:00 Insulin Aspart [NovoLOG] 35 unit SUBCUT 0730,1700 07/06/17 21:00 Doxazosin [Cardura] 2 mg PO BEDTIME Rosuvastatin [Crestor] 5 mg PO BEDTIME 07/07/17 05:11 CBC WITH AUTO DIFF [HEME] AM COMPREHENSIVE METABOLIC PN,CMP [CHEM] AM 07/08/17 05:11 CBC WITH AUTO DIFF [HEME] AM COMPREHENSIVE METABOLIC PN,CMP [CHEM] AM 07/09/17 05:11 CBC WITH AUTO DIFF [HEME] AM COMPREHENSIVE METABOLIC PN,CMP [CHEM] AM - Plan Plan:: 71-year-old female admitted 07/05/17 for shortness of breath suspected pneumonia and CHF exacerbation with PMH of CHF, hypertension, CAD, [place] in 2009, COPD, interstitial lung disease, and type 2 insulin-dependent diabetes. Pneumonia: In emergency department chest x-ray was somewhat suggestive of pneumonia and patient did have leukocytosis of 13,000. She was placed on Zosyn 4.5 g IV every 6 hours which we will continue. Patient has been afebrile. Sputum and blood cultures are pending. Influenza swab was negative. Urinalysis negative and urine culture pending. Influenza negative CHF exacerbation: BNP 328 on admission last BMP on 05/06/17 was 109. Patient was given 80 mg IV Lasix twice a day with good urine output of 2200 yesterday. Continue daily weights, strict I&O, fluid limit 1500 and telemetry. Echocardiogram was ordered but not available until Thursday07/07/17. Patient believes her last echocardiogram was possibly in November. Will continue 80 mg IV Lasix twice a day monitoring for contraction alkalosis. COPD: History of COPD as well as interstitial lung disease. We'll continue duo nebs scheduled every 6 hours. Will consider steroids if breathing does not improve with diuresis. Patient also states she has a history of lung cancer. She sees Dr. Mesa in [facility]. We will need to get the records from them when they are available. Hypertension: Currently stable continue home medications Type 2 diabetes: Initially placed on home insulin scheduling of 55 units of Humira bedtime, 35 units NovoLog in a.m., 40 units at noon, and 35 units in the evening. May need to transition to high-dose insulin sliding scale. Continue to monitor. VT prophylaxis: SCD, heparin every 8 hours Disposition: 2-3 days.
[2017-07-06] MEDS ORDERED: Non-Formulary Medication 1 Each (Budesonide/Formoterol 2 INH) IH SCH (09:00)
[2017-07-06] MEDS ORDERED: DARIFENACIN 7.5 MG PO SCH (09:00)
[2017-07-06] MEDS: SYMBICORT 160/4.5 INH SCH ×2 (09:39→21:27)
[2017-07-06] MEDS: DARIFENACIN 7.5 MG PO SCH (09:39)
[2017-07-06] MEDS ORDERED: Magnesium Sulfate/Water 4 GM in Premix Bag 1 BAG IV ONE (10:36)
[2017-07-06] MEDS: Piperacillin/Tazobactam 3.375 GM in Sodium Chloride 0.9% 50 ML IV SCH ×2 (15:05→21:17)
[2017-07-06] MEDS: Insulin Aspart 100 Units/ML 3 ML Pen SUBCUT SCH (17:41)
[2017-07-06] MEDS: Doxazosin 4 MG Tab PO SCH (21:16)
[2017-07-06] MEDS: Rosuvastatin 10 MG Tab PO SCH (21:16)
[2017-07-06] MEDS: Insulin Detemir 100 Units/ML 3 ML Pen SUBCUT SCH (21:31)
[2017-07-06] MEDS: traMADol 50 MG Tab PO PRN (23:17)
[2017-07-07] MEDS: Piperacillin/Tazobactam 3.375 GM in Sodium Chloride 0.9% 50 ML IV SCH ×4 (02:52→20:30)
[2017-07-07] MEDS: Heparin Sodium 5,000 Units/ML Vial SUBCUT SCH ×3 (05:29→20:44)
[2017-07-07] MEDS: Albuterol/Ipratropium 3.0-0.5 MG/3 ML Neb Soln NEB SCH ×3 (06:16→19:20)
[2017-07-07] MEDS: Aspirin 81 MG Tab.EC PO SCH (08:49)
[2017-07-07] MEDS: Furosemide 40 MG/4 ML VIAL IVPUSH SCH (08:49)
[2017-07-07] MEDS: Montelukast 10 MG Tab PO SCH (08:49)
[2017-07-07] MEDS: traMADol 50 MG Tab PO PRN (09:12)
[2017-07-07] MEDS: DARIFENACIN 7.5 MG PO SCH (09:13)
[2017-07-07] MEDS: SYMBICORT 160/4.5 INH SCH ×2 (09:13→20:41)
[2017-07-07] MEDS: Insulin Aspart 100 Units/ML 3 ML Pen SUBCUT SCH ×3 (10:38→17:40)
--- NOTE | 2017-07-07 10:39 | PCM.PN ---
- General Info Date of Service: 07/07/17 Admission Dx/Problem (Free Text): Admission Diagnosis/Problem Admission Diagnosis/Problem Shortness of breath Subjective Update: No overnight events. Patient states she is feeling much better today. Her breathing has improved and her pedal edema has resolved. She is still requiring supplementary oxygen. Functional Status: Reports: Pain Controlled, Tolerating Diet, Ambulating, Urinating - Review of Systems General: Reports: No Symptoms HEENT: Reports: No Symptoms Pulmonary: Reports: Shortness of Breath (improving) Cardiovascular: Reports: No Symptoms Gastrointestinal: Reports: No Symptoms Genitourinary: Reports: No Symptoms Musculoskeletal: Reports: No Symptoms Skin: Reports: No Symptoms Neurological: Reports: No Symptoms Psychiatric: Reports: No Symptoms - Patient Data Vitals - Most Recent: Last Vital Signs Temp 36.2 C 07/07/17 08:00 Pulse 85 07/07/17 08:00 Resp 16 07/07/17 08:00 BP 122/51 L 07/07/17 08:00 Pulse Ox 97 07/07/17 08:00 Weight - Most Recent: 121.381 kg I&O - Last 24 Hours: Intake & Output 07/06/17 07/07/17 07/07/17 22:59 06:59 14:59 Intake Total 250 720 Output Total 600 1200 Balance -350 -480 Lab Results Last 24 Hours: Laboratory Results - last 24 hr 07/06/17 07/06/17 07/06/17 Range/Units 11:06 15:08 15:57 WBC (4.0-11.0) K/uL RBC (4.30-5.90) M/uL Hgb (12.0-16.0) g/dL Hct (36.0-46.0) % MCV (80.0-98.0) fL MCH (27.0-32.0) pg MCHC (31.0-37.0) g/dL RDW Std Deviation (28.0-62.0) fl RDW Coeff of [place] (11.0-15.0) % Plt Count (150-400) K/uL MPV (7.40-12.00) fL Neut % (Auto) (48.0-80.0) % Lymph % (Auto) (16.0-40.0) % [place] % (Auto) (0.0-15.0) % Eos % (Auto) (0.0-7.0) % Baso % (Auto) (0.0-1.5) % Neut # (Auto) (1.4-5.7) K/uL Lymph # (Auto) (0.6-2.4) K/uL [place] # (Auto) (0.0-0.8) K/uL Eos # (Auto) (0.0-0.7) K/uL Baso # (Auto) (0.0-0.1) K/uL Nucleated RBC % /100WBC Nucleated RBCs # K/uL Sodium (136-146) mmol/L Potassium (3.5-5.1) mmol/L Chloride (98-110) mmol/L Carbon Dioxide (21-31) mmol/L BUN (6.0-23.0) mg/dL Creatinine (0.6-1.5) mg/dL Est Cr Clr Drug Dosing mL/min Estimated GFR (MDRD) ml/min Glucose (60-110) mg/dL POC Glucose 187 H 236 H 179 H (60-110) mg/dL Calcium (8.8-10.8) mg/dL Magnesium (1.5-2.3) mEq/L Total Bilirubin (0.1-1.5) mg/dL AST (5-40) IU/L ALT (8-54) IU/L Alkaline Phosphatase (40-150) Total Protein (6.0-8.0) g/dL Albumin (3.4-4.8) g/dL Globulin (2.0-3.5) g/dL Albumin/Globulin Ratio (1.3-2.8) 07/06/17 07/07/17 07/07/17 Range/Units 21:15 04:38 04:38 WBC 12.12 H (4.0-11.0) K/uL RBC 3.92 L (4.30-5.90) M/uL Hgb 12.5 (12.0-16.0) g/dL Hct 37.7 (36.0-46.0) % MCV 96.2 (80.0-98.0) fL MCH 31.9 (27.0-32.0) pg MCHC 33.2 (31.0-37.0) g/dL RDW Std Deviation 53.0 (28.0-62.0) fl RDW Coeff of [place] 15 (11.0-15.0) % Plt Count 251 (150-400) K/uL MPV 9.60 (7.40-12.00) fL Neut % (Auto) 79.0 (48.0-80.0) % Lymph % (Auto) 10.3 L (16.0-40.0) % [place] % (Auto) 10.4 (0.0-15.0) % Eos % (Auto) 0.2 (0.0-7.0) % Baso % (Auto) 0.1 (0.0-1.5) % Neut # (Auto) 9.6 H (1.4-5.7) K/uL Lymph # (Auto) 1.3 (0.6-2.4) K/uL [place] # (Auto) 1.3 H (0.0-0.8) K/uL Eos # (Auto) 0.0 (0.0-0.7) K/uL Baso # (Auto) 0.0 (0.0-0.1) K/uL Nucleated RBC % 0.0 /100WBC Nucleated RBCs # 0 K/uL Sodium 146 (136-146) mmol/L Potassium 3.9 (3.5-5.1) mmol/L Chloride 104 (98-110) mmol/L Carbon Dioxide 28 (21-31) mmol/L BUN 43 H (6.0-23.0) mg/dL Creatinine 1.2 (0.6-1.5) mg/dL Est Cr Clr Drug Dosing 35.57 mL/min Estimated GFR (MDRD) 44.3 ml/min Glucose 176 H (60-110) mg/dL POC Glucose 103 (60-110) mg/dL Calcium 8.5 L (8.8-10.8) mg/dL Magnesium 1.9 (1.5-2.3) mEq/L Total Bilirubin 0.5 (0.1-1.5) mg/dL AST 42 H (5-40) IU/L ALT 36 (8-54) IU/L Alkaline Phosphatase 69 (40-150) Total Protein 6.5 (6.0-8.0) g/dL Albumin 3.0 L (3.4-4.8) g/dL Globulin 3.5 (2.0-3.5) g/dL Albumin/Globulin Ratio 0.9 L (1.3-2.8) 07/07/17 Range/Units 06:41 WBC (4.0-11.0) K/uL RBC (4.30-5.90) M/uL Hgb (12.0-16.0) g/dL Hct (36.0-46.0) % MCV (80.0-98.0) fL MCH (27.0-32.0) pg MCHC (31.0-37.0) g/dL RDW Std Deviation (28.0-62.0) fl RDW Coeff of [place] (11.0-15.0) % Plt Count (150-400) K/uL MPV (7.40-12.00) fL Neut % (Auto) (48.0-80.0) % Lymph % (Auto) (16.0-40.0) % [place] % (Auto) (0.0-15.0) % Eos % (Auto) (0.0-7.0) % Baso % (Auto) (0.0-1.5) % Neut # (Auto) (1.4-5.7) K/uL Lymph # (Auto) (0.6-2.4) K/uL [place] # (Auto) (0.0-0.8) K/uL Eos # (Auto) (0.0-0.7) K/uL Baso # (Auto) (0.0-0.1) K/uL Nucleated RBC % /100WBC Nucleated RBCs # K/uL Sodium (136-146) mmol/L Potassium (3.5-5.1) mmol/L Chloride (98-110) mmol/L Carbon Dioxide (21-31) mmol/L BUN (6.0-23.0) mg/dL Creatinine (0.6-1.5) mg/dL Est Cr Clr Drug Dosing mL/min Estimated GFR (MDRD) ml/min Glucose (60-110) mg/dL POC Glucose 184 H (60-110) mg/dL Calcium (8.8-10.8) mg/dL Magnesium (1.5-2.3) mEq/L Total Bilirubin (0.1-1.5) mg/dL AST (5-40) IU/L ALT (8-54) IU/L Alkaline Phosphatase (40-150) Total Protein (6.0-8.0) g/dL Albumin (3.4-4.8) g/dL Globulin (2.0-3.5) g/dL Albumin/Globulin Ratio (1.3-2.8) Ronald Results Last 24 Hours: Microbiology 07/05/17 13:47 Aerobic Blood Culture - Preliminary Blood NO GROWTH AFTER 1 DAY Anaerobic Blood Culture - Preliminary NO GROWTH AFTER 1 DAY 07/05/17 13:30 Aerobic Blood Culture - Preliminary Blood NO GROWTH AFTER 1 DAY Anaerobic Blood Culture - Preliminary NO GROWTH AFTER 1 DAY Med Orders - Current: Current Medications Albuterol/Ipratropium (Duoneb 3.0-0.5 Mg/3 Ml) 3 ml NEB Q6HRRT [facility] Last Admin: 07/07/17 06:16 Dose: 3 ml Aspirin (Halfprin) 81 mg PO DAILY [facility] Last Admin: 07/07/17 08:49 Dose: 81 mg Doxazosin Mesylate (Cardura) 8 mg PO BEDTIME [facility] Last Admin: 07/06/17 21:16 Dose: 8 mg Furosemide (Lasix) 80 mg IVPUSH BID [facility] Last Admin: 07/07/17 08:49 Dose: 80 mg Heparin Sodium (Porcine) (Heparin Sodium) 5,000 units SUBCUT Q8H [facility] Last Admin: 07/07/17 05:29 Dose: 5,000 units Piperacillin Sod/Tazobactam (Sod 3.375 gm/ Sodium Chloride) 50 mls @ 50 mls/hr IV Q6H [facility] Last Admin: 07/07/17 08:49 Dose: 50 mls/hr Insulin Aspart (Novolog) 40 unit SUBCUT ACLUNCH [facility] Last Admin: 07/06/17 13:12 Dose: 40 unit Insulin Aspart (Novolog) 35 unit SUBCUT 0730,1700 [facility] Last Admin: 07/06/17 17:41 Dose: 35 unit Insulin Detemir (Levemir) 55 unit SUBCUT BEDTIME [facility] Last Admin: 07/06/17 21:31 Dose: 55 units Montelukast Sodium (Singulair) 10 mg PO DAILY [facility] Last Admin: 07/07/17 08:49 Dose: 10 mg Ondansetron HCl (Zofran Odt) 4 mg PO Q4H PRN PRN Reason: nausea, able to take PO Enablex 7.5 Mg 1 each PO DAILY [facility] Last Admin: 07/07/17 09:13 Dose: 1 each Symbicort 160/4.5 2 each INH BID [facility] Last Admin: 07/07/17 09:13 Dose: 2 each Rosuvastatin Calcium (Crestor) 10 mg PO BEDTIME [facility] Last Admin: 07/06/17 21:16 Dose: 10 mg Tramadol HCl (Ultram) 50 mg PO TID PRN PRN Reason: Pain Last Admin: 07/07/17 09:12 Dose: 50 mg Discontinued Medications Acetaminophen (Tylenol) 650 mg PO NOW ONE Stop: 07/05/17 10:42 Last Admin: 07/05/17 23:51 Dose: Not Given Albuterol/Ipratropium (Duoneb 3.0-0.5 Mg/3 Ml) 3 ml NEB Q6HRRT [facility] Last Admin: 07/06/17 05:55 Dose: 3 ml Albuterol/Ipratropium (Duoneb 3.0-0.5 Mg/3 Ml) 3 ml NEB Q4H [facility] Last Admin: 07/05/17 23:52 Dose: Not Given Albuterol/Ipratropium (Duoneb 3.0-0.5 Mg/3 Ml) Confirm Administered Dose 3 ml .ROUTE .STK-MED ONE Stop: 07/05/17 23:41 Last Admin: 07/05/17 23:52 Dose: Not Given Albuterol/Ipratropium (Duoneb 3.0-0.5 Mg/3 Ml) Confirm Administered Dose 3 ml .ROUTE .STK-MED ONE Stop: 07/06/17 05:52 Last Admin: 07/06/17 07:44 Dose: Not Given Furosemide (Lasix) Confirm Administered Dose 40 mg .ROUTE .STK-MED ONE Stop: 07/05/17 11:25 Last Admin: 07/05/17 23:51 Dose: Not Given Furosemide (Lasix) 80 mg IVPUSH BID [facility] Last Admin: 07/05/17 23:52 Dose: Not Given Furosemide (Lasix) 40 mg IV .STK-MED ONE Stop: 07/05/17 11:29 Heparin Sodium (Porcine) (Heparin Sodium) 5,000 units IV .STK-MED ONE Stop: 07/05/17 15:07 Hydralazine HCl (Apresoline) 10 mg IVPUSH ONETIME ONE Stop: 07/05/17 23:21 Last Admin: 07/05/17 23:44 Dose: 10 mg Sodium Chloride (Normal Saline) 1,000 mls @ 125 mls/hr IV STAT [facility] Last Admin: 07/05/17 10:39 Dose: 125 mls/hr Sodium Chloride (Normal Saline) Confirm Administered Dose 50 mls @ as directed .ROUTE .STK-MED ONE Stop: 07/05/17 11:30 Last Admin: 07/05/17 23:52 Dose: Not Given Piperacillin Sod/Tazobactam (Sod 4.5 gm/ Sodium Chloride) 100 mls @ 100 mls/hr IV Q6H [facility] Last Admin: 07/06/17 08:30 Dose: 100 mls/hr Magnesium Sulfate 4 gm/ Premix 100 mls @ 25 mls/hr IV ONETIME ONE Stop: 07/06/17 14:35 Last Admin: 07/06/17 10:55 Dose: 25 mls/hr Piperacillin Sod/Tazobactam (Sod 3.375 gm/ Sodium Chloride) 50 mls @ as directed IV .STK-MED ONE Stop: 07/05/17 11:29 Insulin Aspart (Novolog) 35 unit SUBCUT ACBREAKFAST [facility] Last Admin: 07/06/17 07:20 Dose: 35 unit Insulin Aspart (Novolog) 35 unit SUBCUT ACDINNER [facility] Insulin Aspart (Novolog) 0 unit SUBCUT .STK-MED ONE Stop: 07/05/17 17:15 Methylprednisolone Sodium Succinate (Solu-Medrol) Confirm Administered Dose 125 mg .ROUTE .STK-MED ONE Stop: 07/05/17 11:27 Last Admin: 07/05/17 23:52 Dose: Not Given Methylprednisolone Sodium Succinate (Solu-Medrol) 125 mg IM .STK-MED ONE Stop: 07/05/17 11:29 Montelukast Sodium (Singulair) 10 mg PO Q8HR [facility] Last Admin: 07/06/17 03:14 Dose: Not Given Non-Formulary Medication (Budesonide/Formoterol) 2 inh IH BID [facility] Non-Formulary Medication (Darifenacin [Enablex]) 7.5 mg PO DAILY [facility] - Exam Quality Assessment: Supplemental Oxygen (3.5 L O2) General: Alert, Oriented, Cooperative, No Acute Distress HEENT: Pupils Equal, Pupils Reactive Neck: Supple, No JVD Lungs: Clear to Auscultation, Normal Respiratory Effort Cardiovascular: Regular Rate, Regular Rhythm GI/Abdominal Exam: Normal Bowel Sounds, Soft, Non-Tender Extremities: Normal Inspection, Non-Tender, No Pedal Edema, Normal Capillary Refill Peripheral Pulses: 2+: Carotid (L), Carotid (R), Dorsalis Pedis (L), Dorsalis Pedis (R) Skin: Intact Neurological: No New Focal Deficit Psy/Mental Status: Alert, Normal Affect, Normal Mood - Problem List Review Problem List Initiated/Reviewed/Updated: Yes - Plan Plan:: 71-year-old female admitted 07/05/17 for shortness of breath suspected pneumonia and CHF exacerbation with PMH of CHF, hypertension, CAD, [place] in 2009, COPD, interstitial lung disease, and type 2 insulin-dependent diabetes. #Hypoxia & SOB, improving -likely multifactorial secondary to CAP, CHF exacerbation -patient with history of COPD & ILD -currently requiring 3.5L O2, no resp distress, chest CTAB plan: -resume Zosyn for CAP -Lasix Diuresis for CHF exacerbation -Duonebs and resumption of home Singulair and Symbicort for COPD/ILD -wean down O2 #CAP -WBC count increasing plan: -continue Zosyn -add Levaquin if WBC continues to increase #CHF exacerbation, improving -no JVD, no pedal edema, chest CTAB plan: -DC Lasix 80 mg IV BID -continue home Lasix 40 mg PO BID -strict I&O & daily weight check -echo ordered #COPD & ILD -continue Duonebs -continue home Symbicort & singulair #Hypertension -continue home medications #Type 2 diabetes -blood glucose readings ranging from 170-300 on home insulin regimen plan: -DC home insulin regimen and start ISS High dose VT prophylaxis: SCD, heparin every 8 hours Disposition: 2-3 days.
--- NOTE | 2017-07-07 15:05 | CR ---
EXAM DATE: 07/05/17 PATIENT'S AGE: 71 Patient: MULUGETA RONDON Facility: [place], [place] Site . Site : 1945 Study: XRay Chest [id number]/24/2017 10:22:38 AM Ordering Physician: Skyler Gleason Final Report: Indication: Shortness of breath. Comparison: None. Findings: Abnormal bilateral perihilar infiltrates are noted, left side greater than right. Cardiac silhouette is mildly enlarged. The bones are diffusely demineralized. Impression: The enlarged cardiac silhouette with perihilar process could reflect pulmonary edema or congestive heart failure. Suggest interval followup with PA and lateral chest. Dictated by Alysha Cisneros MD @ Jul 05 2017 10:40AM (Electronic Signature) Report Signed by Proxy. [facility]
[2017-07-07] MEDS: Furosemide 40 MG Tab PO SCH (17:41)
[2017-07-07] MEDS: Rosuvastatin 10 MG Tab PO SCH (20:36)
[2017-07-07] MEDS: Doxazosin 4 MG Tab PO SCH (20:36)
[2017-07-07] MEDS: Insulin Detemir 100 Units/ML 3 ML Pen SUBCUT SCH (20:50)
[2017-07-08] MEDS: Albuterol/Ipratropium 3.0-0.5 MG/3 ML Neb Soln NEB SCH ×4 (00:18→17:01)
[2017-07-08] MEDS: traMADol 50 MG Tab PO PRN ×2 (00:31→09:34)
[2017-07-08] MEDS: Piperacillin/Tazobactam 3.375 GM in Sodium Chloride 0.9% 50 ML IV SCH ×4 (02:58→20:36)
[2017-07-08] MEDS: Heparin Sodium 5,000 Units/ML Vial SUBCUT SCH ×3 (04:37→20:40)
[2017-07-08 05:55] LABS: CHLORIDE,CL 105 mmol/L (98-110); SODIUM,NA 143 mmol/L (136-146)
[2017-07-08] MEDS: Insulin Aspart 100 Units/ML 3 ML Pen SUBCUT SCH ×3 (08:11→17:18)
--- NOTE | 2017-07-08 08:11 | PCM.PN ---
- General Info Date of Service: 07/08/17 Admission Dx/Problem (Free Text): Admission Diagnosis/Problem Admission Diagnosis/Problem Shortness of breath Subjective Update: No overnight events. Patient continues to improve. Denies sob at rest. Minimal sob with activity. LE swelling improving. Functional Status: Reports: Pain Controlled - Review of Systems General: Reports: Weakness HEENT: Reports: No Symptoms Pulmonary: Reports: Shortness of Breath (with activity ) Cardiovascular: Reports: No Symptoms Gastrointestinal: Reports: No Symptoms Genitourinary: Reports: No Symptoms Musculoskeletal: Reports: No Symptoms Skin: Reports: No Symptoms Neurological: Reports: No Symptoms Psychiatric: Reports: No Symptoms - Patient Data Vitals - Most Recent: Last Vital Signs Temp 36.2 C 07/08/17 07:54 Pulse 95 07/08/17 07:54 Resp 16 07/08/17 07:54 BP 139/47 L 07/08/17 07:54 Pulse Ox 100 07/08/17 07:54 Weight - Most Recent: 122 kg I&O - Last 24 Hours: Intake & Output 07/07/17 07/08/17 07/08/17 22:59 06:59 14:59 Intake Total 900 550 Output Total 600 400 Balance 300 150 Lab Results Last 24 Hours: Laboratory Results - last 24 hr 07/07/17 07/07/17 07/07/17 Range/Units 11:16 17:12 20:21 WBC (4.0-11.0) K/uL RBC (4.30-5.90) M/uL Hgb (12.0-16.0) g/dL Hct (36.0-46.0) % MCV (80.0-98.0) fL MCH (27.0-32.0) pg MCHC (31.0-37.0) g/dL RDW Std Deviation (28.0-62.0) fl RDW Coeff of Donovan (11.0-15.0) % Plt Count (150-400) K/uL MPV (7.40-12.00) fL Neut % (Auto) (48.0-80.0) % Lymph % (Auto) (16.0-40.0) % [place] % (Auto) (0.0-15.0) % Eos % (Auto) (0.0-7.0) % Baso % (Auto) (0.0-1.5) % Neut # (Auto) (1.4-5.7) K/uL Lymph # (Auto) (0.6-2.4) K/uL [place] # (Auto) (0.0-0.8) K/uL Eos # (Auto) (0.0-0.7) K/uL Baso # (Auto) (0.0-0.1) K/uL Nucleated RBC % /100WBC Nucleated RBCs # K/uL Sodium (136-146) mmol/L Potassium (3.5-5.1) mmol/L Chloride (98-110) mmol/L Carbon Dioxide (21-31) mmol/L BUN (6.0-23.0) mg/dL Creatinine (0.6-1.5) mg/dL Est Cr Clr Drug Dosing mL/min Estimated GFR (MDRD) ml/min Glucose (60-110) mg/dL POC Glucose 220 H 210 H 224 H (60-110) mg/dL Calcium (8.8-10.8) mg/dL Total Bilirubin (0.1-1.5) mg/dL AST (5-40) IU/L ALT (8-54) IU/L Alkaline Phosphatase (40-150) Total Protein (6.0-8.0) g/dL Albumin (3.4-4.8) g/dL Globulin (2.0-3.5) g/dL Albumin/Globulin Ratio (1.3-2.8) 07/08/17 07/08/17 07/08/17 Range/Units 04:37 04:37 06:10 WBC 11.05 H (4.0-11.0) K/uL RBC 3.56 L (4.30-5.90) M/uL Hgb 11.2 L (12.0-16.0) g/dL Hct 34.4 L (36.0-46.0) % MCV 96.6 (80.0-98.0) fL MCH 31.5 (27.0-32.0) pg MCHC 32.6 (31.0-37.0) g/dL RDW Std Deviation 53.5 (28.0-62.0) fl RDW Coeff of Donovan 15 (11.0-15.0) % Plt Count 235 (150-400) K/uL MPV 9.60 (7.40-12.00) fL Neut % (Auto) 75.2 (48.0-80.0) % Lymph % (Auto) 11.5 L (16.0-40.0) % [place] % (Auto) 12.1 (0.0-15.0) % Eos % (Auto) 1.0 (0.0-7.0) % Baso % (Auto) 0.2 (0.0-1.5) % Neut # (Auto) 8.3 H (1.4-5.7) K/uL Lymph # (Auto) 1.3 (0.6-2.4) K/uL [place] # (Auto) 1.3 H (0.0-0.8) K/uL Eos # (Auto) 0.1 (0.0-0.7) K/uL Baso # (Auto) 0.0 (0.0-0.1) K/uL Nucleated RBC % 0.0 /100WBC Nucleated RBCs # 0 K/uL Sodium 143 (136-146) mmol/L Potassium 3.4 L (3.5-5.1) mmol/L Chloride 105 (98-110) mmol/L Carbon Dioxide 25 (21-31) mmol/L BUN 39 H (6.0-23.0) mg/dL Creatinine 0.9 (0.6-1.5) mg/dL Est Cr Clr Drug Dosing 47.43 mL/min Estimated GFR (MDRD) > 60.0 ml/min Glucose 192 H (60-110) mg/dL POC Glucose 160 H (60-110) mg/dL Calcium 7.3 L (8.8-10.8) mg/dL Total Bilirubin 0.6 (0.1-1.5) mg/dL AST 27 (5-40) IU/L ALT 36 (8-54) IU/L Alkaline Phosphatase 66 (40-150) Total Protein 5.1 L (6.0-8.0) g/dL Albumin 2.8 L (3.4-4.8) g/dL Globulin 2.3 (2.0-3.5) g/dL Albumin/Globulin Ratio 1.2 L (1.3-2.8) Ronald Results Last 24 Hours: Microbiology 07/05/17 13:47 Aerobic Blood Culture - Preliminary Blood NO GROWTH AFTER 2 DAYS Anaerobic Blood Culture - Preliminary NO GROWTH AFTER 2 DAYS 07/05/17 13:30 Aerobic Blood Culture - Preliminary Blood NO GROWTH AFTER 2 DAYS Anaerobic Blood Culture - Preliminary NO GROWTH AFTER 2 DAYS Med Orders - Current: Current Medications Albuterol/Ipratropium (Duoneb 3.0-0.5 Mg/3 Ml) 3 ml NEB Q6HRRT [facility] Last Admin: 07/08/17 06:24 Dose: 3 ml Aspirin (Halfprin) 81 mg PO DAILY [facility] Last Admin: 07/07/17 08:49 Dose: 81 mg Doxazosin Mesylate (Cardura) 8 mg PO BEDTIME [facility] Last Admin: 07/07/17 20:36 Dose: 8 mg Furosemide (Lasix) 40 mg PO BIDDIURETIC [facility] Last Admin: 07/07/17 17:41 Dose: 40 mg Heparin Sodium (Porcine) (Heparin Sodium) 5,000 units SUBCUT Q8H [facility] Last Admin: 07/08/17 04:37 Dose: 5,000 units Piperacillin Sod/Tazobactam (Sod 3.375 gm/ Sodium Chloride) 50 mls @ 50 mls/hr IV Q6H [facility] Last Admin: 07/08/17 02:58 Dose: 50 mls/hr Insulin Aspart (Novolog) 0 unit SUBCUT TIDAC [facility] PRN Reason: Protocol Last Admin: 07/07/17 17:40 Dose: 6 units Insulin Detemir (Levemir) 55 unit SUBCUT BEDTIME [facility] Last Admin: 07/07/17 20:50 Dose: 55 units Montelukast Sodium (Singulair) 10 mg PO DAILY [facility] Last Admin: 07/07/17 08:49 Dose: 10 mg Ondansetron HCl (Zofran Odt) 4 mg PO Q4H PRN PRN Reason: nausea, able to take PO Enablex 7.5 Mg 1 each PO DAILY [facility] Last Admin: 07/07/17 09:13 Dose: 1 each Symbicort 160/4.5 2 each INH BID [facility] Last Admin: 07/07/17 20:41 Dose: 2 each Rosuvastatin Calcium (Crestor) 10 mg PO BEDTIME [facility] Last Admin: 07/07/17 20:36 Dose: 10 mg Tramadol HCl (Ultram) 50 mg PO TID PRN PRN Reason: Pain Last Admin: 07/08/17 00:31 Dose: 50 mg Discontinued Medications Acetaminophen (Tylenol) 650 mg PO NOW ONE Stop: 07/05/17 10:42 Last Admin: 07/05/17 23:51 Dose: Not Given Albuterol/Ipratropium (Duoneb 3.0-0.5 Mg/3 Ml) 3 ml NEB Q6HRRT [facility] Last Admin: 07/06/17 05:55 Dose: 3 ml Albuterol/Ipratropium (Duoneb 3.0-0.5 Mg/3 Ml) 3 ml NEB Q4H [facility] Last Admin: 07/05/17 23:52 Dose: Not Given Albuterol/Ipratropium (Duoneb 3.0-0.5 Mg/3 Ml) Confirm Administered Dose 3 ml .ROUTE .STK-MED ONE Stop: 07/05/17 23:41 Last Admin: 07/05/17 23:52 Dose: Not Given Albuterol/Ipratropium (Duoneb 3.0-0.5 Mg/3 Ml) Confirm Administered Dose 3 ml .ROUTE .STK-MED ONE Stop: 07/06/17 05:52 Last Admin: 07/06/17 07:44 Dose: Not Given Furosemide (Lasix) Confirm Administered Dose 40 mg .ROUTE .STK-MED ONE Stop: 07/05/17 11:25 Last Admin: 07/05/17 23:51 Dose: Not Given Furosemide (Lasix) 80 mg IVPUSH BID [facility] Last Admin: 07/07/17 08:49 Dose: 80 mg Furosemide (Lasix) 80 mg IVPUSH BID [facility] Last Admin: 07/05/17 23:52 Dose: Not Given Furosemide (Lasix) 40 mg IV .STK-MED ONE Stop: 07/05/17 11:29 Heparin Sodium (Porcine) (Heparin Sodium) 5,000 units IV .STK-MED ONE Stop: 07/05/17 15:07 Hydralazine HCl (Apresoline) 10 mg IVPUSH ONETIME ONE Stop: 07/05/17 23:21 Last Admin: 07/05/17 23:44 Dose: 10 mg Sodium Chloride (Normal Saline) 1,000 mls @ 125 mls/hr IV STAT [facility] Last Admin: 07/05/17 10:39 Dose: 125 mls/hr Sodium Chloride (Normal Saline) Confirm Administered Dose 50 mls @ as directed .ROUTE .STK-MED ONE Stop: 07/05/17 11:30 Last Admin: 07/05/17 23:52 Dose: Not Given Piperacillin Sod/Tazobactam (Sod 4.5 gm/ Sodium Chloride) 100 mls @ 100 mls/hr IV Q6H [facility] Last Admin: 07/06/17 08:30 Dose: 100 mls/hr Magnesium Sulfate 4 gm/ Premix 100 mls @ 25 mls/hr IV ONETIME ONE Stop: 07/06/17 14:35 Last Admin: 07/06/17 10:55 Dose: 25 mls/hr Piperacillin Sod/Tazobactam (Sod 3.375 gm/ Sodium Chloride) 50 mls @ as directed IV .STK-MED ONE Stop: 07/05/17 11:29 Insulin Aspart (Novolog) 35 unit SUBCUT ACBREAKFAST [facility] Last Admin: 07/06/17 07:20 Dose: 35 unit Insulin Aspart (Novolog) 35 unit SUBCUT ACDINNER [facility] Insulin Aspart (Novolog) 40 unit SUBCUT ACLUNCH [facility] Last Admin: 07/06/17 13:12 Dose: 40 unit Insulin Aspart (Novolog) 35 unit SUBCUT [id number],1700 [facility] Last Admin: 07/07/17 10:38 Dose: Not Given Insulin Aspart (Novolog) 0 unit SUBCUT .STK-MED ONE Stop: 07/05/17 17:15 Methylprednisolone Sodium Succinate (Solu-Medrol) Confirm Administered Dose 125 mg .ROUTE .STK-MED ONE Stop: 07/05/17 11:27 Last Admin: 07/05/17 23:52 Dose: Not Given Methylprednisolone Sodium Succinate (Solu-Medrol) 125 mg IM .STK-MED ONE Stop: 07/05/17 11:29 Montelukast Sodium (Singulair) 10 mg PO Q8HR [facility] Last Admin: 07/06/17 03:14 Dose: Not Given Non-Formulary Medication (Budesonide/Formoterol) 2 inh IH BID [facility] Non-Formulary Medication (Darifenacin [Enablex]) 7.5 mg PO DAILY RODRIGO - Exam General: Alert, Oriented, Cooperative, No Acute Distress HEENT: Pupils Equal, Pupils Reactive Neck: Supple, No JVD Lungs: Clear to Auscultation, Normal Respiratory Effort Cardiovascular: Regular Rate, Regular Rhythm GI/Abdominal Exam: Normal Bowel Sounds, Soft, Non-Tender Extremities: Normal Inspection, No Pedal Edema Peripheral Pulses: 2+: Dorsalis Pedis (L), Dorsalis Pedis (R) Skin: Intact Neurological: No New Focal Deficit Psy/Mental Status: Alert, Normal Affect, Normal Mood - Problem List Review Problem List Initiated/Reviewed/Updated: Yes - My Orders Last 24 Hours: My Active Orders 07/07/17 11:30 Insulin Aspart [NovoLOG] See Protocol SUBCUT TIDAC 07/07/17 17:00 Furosemide [Lasix] 40 mg PO BIDDIURETIC - Plan Plan:: 71-year-old female admitted 07/05/17 for shortness of breath suspected pneumonia and CHF exacerbation with PMH of CHF, hypertension, CAD, [place] in 2009, COPD, interstitial lung disease, and type 2 insulin-dependent diabetes. #Hypoxia & SOB -Hypoxia resolved, SOB improving -likely multifactorial secondary to CAP, CHF exacerbation -patient with history of COPD & ILD plan: -resume Zosyn for CAP -monitor I&O for CHF exacerbation -Duonebs and resumption of home Singulair and Symbicort for COPD/ILD #CAP -Hypoxia resolved, leukocytosis present but improving plan: -continue Zosyn #CHF exacerbation, improving -no JVD, no pedal edema, chest CTAB plan: -hold home Lasix 40 mg PO BID to prevent hypovolemia -strict I&O & daily weight check -echo complete awaiting reading #COPD & ILD -continue Duonebs -continue home Symbicort & singulair #Hypertension -continue home medications #Type 2 diabetes -continue ISS High dose VT prophylaxis: SCD, heparin every 8 hours Disposition: 1-2 days pending.
[2017-07-08] MEDS: Aspirin 81 MG Tab.EC PO SCH (08:14)
[2017-07-08] MEDS: Furosemide 40 MG Tab PO SCH ×2 (08:14→13:15)
[2017-07-08] MEDS: Montelukast 10 MG Tab PO SCH (08:14)
[2017-07-08] MEDS: SYMBICORT 160/4.5 INH SCH ×2 (09:16→21:00)
[2017-07-08] MEDS: DARIFENACIN 7.5 MG PO SCH (09:16)
[2017-07-08] MEDS ORDERED: Potassium Chloride 20 MEQ Packet PO ONE (11:56)
[2017-07-08] MEDS ORDERED: Calcium Carbonate 500 MG Tab.Chew PO ONE (12:59)
[2017-07-08] MEDS ORDERED: Potassium Chloride 20 MEQ Tab.ER PO ONE (13:15)
[2017-07-08] MEDS: Doxazosin 4 MG Tab PO SCH (20:40)
[2017-07-08] MEDS: Rosuvastatin 10 MG Tab PO SCH (20:40)
[2017-07-08] MEDS: Insulin Detemir 100 Units/ML 3 ML Pen SUBCUT SCH (20:58)
[2017-07-09] MEDS: Albuterol/Ipratropium 3.0-0.5 MG/3 ML Neb Soln NEB SCH ×5 (00:07→23:13)
[2017-07-09] MEDS: Carvedilol 25 MG Tab PO SCH ×3 (00:07→20:30)
[2017-07-09] MEDS: Piperacillin/Tazobactam 3.375 GM in Sodium Chloride 0.9% 50 ML IV SCH ×4 (02:12→20:22)
[2017-07-09] MEDS: Heparin Sodium 5,000 Units/ML Vial SUBCUT SCH ×3 (05:05→20:30)
[2017-07-09 06:10] LABS: CHLORIDE,CL 106 mmol/L (98-110); SODIUM,NA 142 mmol/L (136-146)
[2017-07-09] MEDS: Insulin Aspart 100 Units/ML 3 ML Pen SUBCUT SCH ×3 (06:32→17:28)
[2017-07-09] MEDS: DARIFENACIN 7.5 MG PO SCH (08:14)
[2017-07-09] MEDS: Aspirin 81 MG Tab.EC PO SCH (08:15)
[2017-07-09] MEDS: Spironolactone 25 MG Tab PO SCH (08:17)
[2017-07-09] MEDS: Furosemide 40 MG Tab PO SCH ×2 (08:17→14:36)
[2017-07-09] MEDS: Montelukast 10 MG Tab PO SCH (08:17)
[2017-07-09] MEDS: SYMBICORT 160/4.5 INH SCH ×2 (09:57→20:32)
[2017-07-09] MEDS ORDERED: Potassium Chloride 20 MEQ Tab.ER PO ONE (10:12)
--- NOTE | 2017-07-09 17:27 | PCM.PN ---
- General Info Date of Service: 07/09/17 Admission Dx/Problem (Free Text): Admission Diagnosis/Problem Admission Diagnosis/Problem Shortness of breath Subjective Update: No overnight events. Patient continues to improve. Denies sob at rest. Minimal sob with activity. LE swelling improving. Functional Status: Reports: Tolerating Diet, Urinating, New Symptoms - Review of Systems General: Reports: Fatigue, Malaise, Chills HEENT: Reports: No Symptoms Pulmonary: Reports: Shortness of Breath Cardiovascular: Reports: Dyspnea on Exertion Gastrointestinal: Reports: No Symptoms Genitourinary: Reports: No Symptoms Musculoskeletal: Reports: No Symptoms Skin: Reports: No Symptoms Neurological: Reports: No Symptoms Psychiatric: Reports: No Symptoms - Patient Data Vitals - Most Recent: Last Vital Signs Temp 36.8 C 07/09/17 12:00 Pulse 77 07/09/17 12:00 Resp 20 07/09/17 12:00 BP 179/55 H 07/09/17 12:00 Pulse Ox 90 L 07/09/17 12:00 Weight - Most Recent: 122.5 kg I&O - Last 24 Hours: Intake & Output 07/09/17 07/09/17 07/09/17 06:59 14:59 22:59 Intake Total 550 450 Output Total 500 800 Balance 50 -350 Lab Results Last 24 Hours: Laboratory Results - last 24 hr 07/09/17 07/09/17 Range/Units 05:01 05:01 WBC 11.40 H (4.0-11.0) K/uL RBC 3.55 L (4.30-5.90) M/uL Hgb 11.0 L (12.0-16.0) g/dL Hct 33.7 L (36.0-46.0) % MCV 94.9 (80.0-98.0) fL MCH 31.0 (27.0-32.0) pg MCHC 32.6 (31.0-37.0) g/dL RDW Std Deviation 52.4 (28.0-62.0) fl RDW Coeff of Donovan 15 (11.0-15.0) % Plt Count 236 (150-400) K/uL MPV 9.50 (7.40-12.00) fL Add Manual Diff YES Neutrophils % (Manual) 76 (48.0-80.0) % Band Neutrophils % 4 % Lymphocytes % (Manual) 14 L (16.0-40.0) % Monocytes % (Manual) 6 (0.0-15.0) % Nucleated RBC % 0.0 /100WBC Absolute Seg Neuts 8.7 H (1.4-5.7) Band Neutrophils # 0.5 Lymphocytes # (Manual) 1.6 (0.6-2.4) Monocytes # (Manual) 0.7 (0.0-0.8) Nucleated RBCs # 0 K/uL Sodium 142 (136-146) mmol/L Potassium 3.3 L (3.5-5.1) mmol/L Chloride 106 (98-110) mmol/L Carbon Dioxide 26 (21-31) mmol/L BUN 23 (6.0-23.0) mg/dL Creatinine 0.8 (0.6-1.5) mg/dL Est Cr Clr Drug Dosing 53.34 mL/min Estimated GFR (MDRD) > 60.0 ml/min Glucose 184 H (60-110) mg/dL Calcium 8.0 L (8.8-10.8) mg/dL Total Bilirubin 0.6 (0.1-1.5) mg/dL AST 17 (5-40) IU/L ALT 28 (8-54) IU/L Alkaline Phosphatase 67 (40-150) Total Protein 5.7 L (6.0-8.0) g/dL Albumin 2.7 L (3.4-4.8) g/dL Globulin 3.0 (2.0-3.5) g/dL Albumin/Globulin Ratio 0.9 L (1.3-2.8) Ronald Results Last 24 Hours: Microbiology 07/08/17 20:41 Gram Stain - Preliminary Sputum - Expectorated 07/05/17 13:47 Aerobic Blood Culture - Preliminary Blood NO GROWTH AFTER 3 DAYS Anaerobic Blood Culture - Preliminary NO GROWTH AFTER 3 DAYS 07/05/17 13:30 Aerobic Blood Culture - Preliminary Blood NO GROWTH AFTER 3 DAYS Anaerobic Blood Culture - Preliminary NO GROWTH AFTER 3 DAYS Med Orders - Current: Current Medications Albuterol/Ipratropium (Duoneb 3.0-0.5 Mg/3 Ml) 3 ml NEB Q6HRRT [facility] Last Admin: 07/09/17 11:10 Dose: 3 ml Aspirin (Halfprin) 81 mg PO DAILY [facility] Last Admin: 07/09/17 08:15 Dose: 81 mg Carvedilol (Coreg) 25 mg PO BID [facility] Last Admin: 07/09/17 08:15 Dose: 25 mg Doxazosin Mesylate (Cardura) 8 mg PO BEDTIME [facility] Last Admin: 07/08/17 20:40 Dose: 8 mg Furosemide (Lasix) 40 mg PO BIDDIURETIC [facility] Last Admin: 07/09/17 14:36 Dose: 40 mg Heparin Sodium (Porcine) (Heparin Sodium) 5,000 units SUBCUT Q8H [facility] Last Admin: 07/09/17 12:36 Dose: 5,000 units Piperacillin Sod/Tazobactam (Sod 3.375 gm/ Sodium Chloride) 50 mls @ 50 mls/hr IV Q6H [facility] Last Admin: 07/09/17 14:36 Dose: 50 mls/hr Vancomycin HCl 1,750 mg/ (Sodium Chloride) 500 mls @ 333.333 mls/hr IV Q24H [facility] Last Admin: 07/09/17 10:31 Dose: 333.333 mls/hr Insulin Aspart (Novolog) 0 unit SUBCUT TIDAC [facility] PRN Reason: Protocol Last Admin: 07/09/17 12:34 Dose: 3 units Insulin Detemir (Levemir) 55 unit SUBCUT BEDTIME [facility] Last Admin: 07/08/17 20:58 Dose: 55 units Montelukast Sodium (Singulair) 10 mg PO DAILY [facility] Last Admin: 07/09/17 08:17 Dose: 10 mg Ondansetron HCl (Zofran Odt) 4 mg PO Q4H PRN PRN Reason: nausea, able to take PO Enablex 7.5 Mg 1 each PO DAILY [facility] Last Admin: 07/09/17 08:14 Dose: 1 each Symbicort 160/4.5 2 each INH BID [facility] Last Admin: 07/09/17 09:57 Dose: 2 each Rosuvastatin Calcium (Crestor) 10 mg PO BEDTIME [facility] Last Admin: 07/08/17 20:40 Dose: 10 mg Spironolactone (Aldactone) 25 mg PO DAILY [facility] Last Admin: 07/09/17 08:17 Dose: 25 mg Tramadol HCl (Ultram) 50 mg PO TID PRN PRN Reason: Pain Last Admin: 07/08/17 09:34 Dose: 50 mg Vancomycin HCl (Pharmacy To Dose - Vancomycin) 1 dose .XX ASDIRECTED [facility] Discontinued Medications Acetaminophen (Tylenol) 650 mg PO NOW ONE Stop: 07/05/17 10:42 Last Admin: 07/05/17 23:51 Dose: Not Given Albuterol/Ipratropium (Duoneb 3.0-0.5 Mg/3 Ml) 3 ml NEB Q6HRRT [facility] Last Admin: 07/06/17 05:55 Dose: 3 ml Albuterol/Ipratropium (Duoneb 3.0-0.5 Mg/3 Ml) 3 ml NEB Q4H [facility] Last Admin: 07/05/17 23:52 Dose: Not Given Albuterol/Ipratropium (Duoneb 3.0-0.5 Mg/3 Ml) Confirm Administered Dose 3 ml .ROUTE .STK-MED ONE Stop: 07/05/17 23:41 Last Admin: 07/05/17 23:52 Dose: Not Given Albuterol/Ipratropium (Duoneb 3.0-0.5 Mg/3 Ml) Confirm Administered Dose 3 ml .ROUTE .STK-MED ONE Stop: 07/06/17 05:52 Last Admin: 07/06/17 07:44 Dose: Not Given Calcium Carbonate/Glycine (Tums) 1,000 mg PO ONETIME ONE Stop: 07/08/17 13:00 Last Admin: 07/08/17 13:15 Dose: 1,000 mg Furosemide (Lasix) Confirm Administered Dose 40 mg .ROUTE .STK-MED ONE Stop: 07/05/17 11:25 Last Admin: 07/05/17 23:51 Dose: Not Given Furosemide (Lasix) 80 mg IVPUSH BID [facility] Last Admin: 07/07/17 08:49 Dose: 80 mg Furosemide (Lasix) 80 mg IVPUSH BID [facility] Last Admin: 07/05/17 23:52 Dose: Not Given Furosemide (Lasix) 40 mg IV .STK-MED ONE Stop: 07/05/17 11:29 Heparin Sodium (Porcine) (Heparin Sodium) 5,000 units IV .STK-MED ONE Stop: 07/05/17 15:07 Hydralazine HCl (Apresoline) 10 mg IVPUSH ONETIME ONE Stop: 07/05/17 23:21 Last Admin: 07/05/17 23:44 Dose: 10 mg Sodium Chloride (Normal Saline) 1,000 mls @ 125 mls/hr IV STAT [facility] Last Admin: 07/05/17 10:39 Dose: 125 mls/hr Sodium Chloride (Normal Saline) Confirm Administered Dose 50 mls @ as directed .ROUTE .STK-MED ONE Stop: 07/05/17 11:30 Last Admin: 07/05/17 23:52 Dose: Not Given Piperacillin Sod/Tazobactam (Sod 4.5 gm/ Sodium Chloride) 100 mls @ 100 mls/hr IV Q6H [facility] Last Admin: 07/06/17 08:30 Dose: 100 mls/hr Magnesium Sulfate 4 gm/ Premix 100 mls @ 25 mls/hr IV ONETIME ONE Stop: 07/06/17 14:35 Last Admin: 07/06/17 10:55 Dose: 25 mls/hr Piperacillin Sod/Tazobactam (Sod 3.375 gm/ Sodium Chloride) 50 mls @ as directed IV .STK-MED ONE Stop: 07/05/17 11:29 Insulin Aspart (Novolog) 35 unit SUBCUT ACBREAKFAST [facility] Last Admin: 07/06/17 07:20 Dose: 35 unit Insulin Aspart (Novolog) 35 unit SUBCUT ACDINNER [facility] Insulin Aspart (Novolog) 40 unit SUBCUT ACLUNCH [facility] Last Admin: 07/06/17 13:12 Dose: 40 unit Insulin Aspart (Novolog) 35 unit SUBCUT 0730,1700 [facility] Last Admin: 07/07/17 10:38 Dose: Not Given Insulin Aspart (Novolog) 0 unit SUBCUT .STK-MED ONE Stop: 07/05/17 17:15 Methylprednisolone Sodium Succinate (Solu-Medrol) Confirm Administered Dose 125 mg .ROUTE .STK-MED ONE Stop: 07/05/17 11:27 Last Admin: 07/05/17 23:52 Dose: Not Given Methylprednisolone Sodium Succinate (Solu-Medrol) 125 mg IM .STK-MED ONE Stop: 07/05/17 11:29 Montelukast Sodium (Singulair) 10 mg PO Q8HR [facility] Last Admin: 07/06/17 03:14 Dose: Not Given Non-Formulary Medication (Budesonide/Formoterol) 2 inh IH BID [facility] Non-Formulary Medication (Darifenacin [Enablex]) 7.5 mg PO DAILY [facility] Potassium Chloride (Klor-Con) 40 meq PO ONETIME ONE Stop: 07/08/17 11:57 Last Admin: 07/08/17 13:16 Dose: Not Given Potassium Chloride (Klor-Con M20) 40 meq PO ONETIME ONE Stop: 07/08/17 13:16 Last Admin: 07/08/17 13:15 Dose: 40 meq Potassium Chloride (Klor-Con M20) 40 meq PO ONETIME ONE Stop: 07/09/17 10:13 Last Admin: 07/09/17 10:31 Dose: 40 meq - Exam General: Alert, Oriented, Mild Distress HEENT: Pupils Equal, Pupils Reactive Neck: Supple, No JVD Lungs: Normal Respiratory Effort, Decreased Breath Sounds Cardiovascular: Regular Rate, Regular Rhythm GI/Abdominal Exam: Normal Bowel Sounds, Soft, No Distention Back Exam: Normal Inspection Extremities: Normal Inspection, No Pedal Edema, Normal Capillary Refill Peripheral Pulses: 2+: Carotid (L), Carotid (R) Skin: Intact Neurological: No New Focal Deficit Psy/Mental Status: Anxious - Problem List Review Problem List Initiated/Reviewed/Updated: Yes - My Orders Last 24 Hours: My Active Orders 07/08/17 22:30 Carvedilol [Coreg] 25 mg PO BID 07/09/17 08:45 Vancomycin Pharmacy to Dose [Pharmacy to Dose - Vancomycin] 1 dose .XX ASDIRECTED 07/09/17 09:00 Spironolactone [Aldactone] 25 mg PO DAILY - Plan Plan:: 71-year-old female with with PMH of CHF, hypertension, CAD, [place] in 2009, COPD, interstitial lung disease, and type 2 insulin-dependent diabetes. admitted 07/05/17 for shortness of breath and hypoxia secondary to CAP #Hypoxia & SOB, on Zosyn IV -likely secondary to CAP -Hypoxia resolved and on RA, SOB was improving but today patient complains of slight worsening -Leukocytosis still present -Sputum gram stain positive for gm+ cocci in pairs and clusters plan: -start Vancomycin IV for possible MRSA -resume Zosyn IV for CAP -f/u cultures #CAP -plan as per above #COPD & ILD -continue home Symbicort & singulair -continue duonebs #Hypertension -continue home medications #Type 2 diabetes -continue ISS High dose #HFpEF -echo completed and reveals LVEF 55% & mild concentric lv hypertrophy -no JVD, no pedal edema, chest CTAB VT prophylaxis: SCD, heparin every 8 hours Disposition: 1-2 days pending.
[2017-07-09] MEDS: traMADol 50 MG Tab PO PRN (17:32)
[2017-07-09] MEDS: Insulin Detemir 100 Units/ML 3 ML Pen SUBCUT SCH (20:24)
[2017-07-09] MEDS: Doxazosin 4 MG Tab PO SCH (20:28)
[2017-07-09] MEDS: Rosuvastatin 10 MG Tab PO SCH (20:30)
[2017-07-10] MEDS: Piperacillin/Tazobactam 3.375 GM in Sodium Chloride 0.9% 50 ML IV SCH ×4 (03:56→20:48)
[2017-07-10] MEDS: Heparin Sodium 5,000 Units/ML Vial SUBCUT SCH ×3 (04:04→20:45)
[2017-07-10 05:03] LABS: CHLORIDE,CL 108 mmol/L (98-110); SODIUM,NA 143 mmol/L (136-146)
[2017-07-10] MEDS: Albuterol/Ipratropium 3.0-0.5 MG/3 ML Neb Soln NEB SCH ×4 (06:05→23:41)
[2017-07-10] MEDS: Insulin Aspart 100 Units/ML 3 ML Pen SUBCUT SCH ×3 (06:47→17:29)
[2017-07-10] MEDS: Aspirin 81 MG Tab.EC PO SCH (08:21)
[2017-07-10] MEDS: Montelukast 10 MG Tab PO SCH (08:21)
[2017-07-10] MEDS: Furosemide 40 MG Tab PO SCH ×2 (08:21→14:12)
[2017-07-10] MEDS: SYMBICORT 160/4.5 INH SCH ×2 (08:22→20:48)
[2017-07-10] MEDS: DARIFENACIN 7.5 MG PO SCH (08:22)
[2017-07-10] MEDS: Spironolactone 25 MG Tab PO SCH (08:35)
[2017-07-10] MEDS: Carvedilol 25 MG Tab PO SCH ×2 (08:35→20:45)
[2017-07-10] MEDS ORDERED: Potassium Chloride 20 MEQ Tab.ER PO ONE (10:40)
--- NOTE | 2017-07-10 12:40 | PCM.PN ---
- General Info Date of Service: 07/10/17 Admission Dx/Problem (Free Text): Admission Diagnosis/Problem Admission Diagnosis/Problem Shortness of breath Subjective Update: Patient developed hypoxia and back on supplemental O2. She is more fatigued and has not been ambulating much. - Review of Systems General: Reports: Weakness, Fatigue HEENT: Reports: No Symptoms Pulmonary: Reports: Shortness of Breath, Cough Cardiovascular: Reports: No Symptoms Gastrointestinal: Reports: No Symptoms Genitourinary: Reports: No Symptoms Musculoskeletal: Reports: No Symptoms Skin: Reports: No Symptoms Neurological: Reports: No Symptoms Psychiatric: Reports: No Symptoms - Patient Data Vitals - Most Recent: Last Vital Signs Temp 36.5 C 07/10/17 08:00 Pulse 70 07/10/17 08:35 Resp 20 07/10/17 08:00 BP 108/30 L 07/10/17 08:35 Pulse Ox 90 L 07/10/17 08:00 Weight - Most Recent: 123.5 kg I&O - Last 24 Hours: Intake & Output 07/09/17 07/10/17 07/10/17 22:59 06:59 14:59 Intake Total 500 450 50 Output Total 800 500 Balance -300 -50 50 Lab Results Last 24 Hours: Laboratory Results - last 24 hr 07/10/17 07/10/17 Range/Units 04:13 04:13 WBC 11.62 H (4.0-11.0) K/uL RBC 3.38 L (4.30-5.90) M/uL Hgb 10.8 L (12.0-16.0) g/dL Hct 32.4 L (36.0-46.0) % MCV 95.9 (80.0-98.0) fL MCH 32.0 (27.0-32.0) pg MCHC 33.3 (31.0-37.0) g/dL RDW Std Deviation 53.6 (28.0-62.0) fl RDW Coeff of Donovan 16 H (11.0-15.0) % Plt Count 207 (150-400) K/uL MPV 9.50 (7.40-12.00) fL Neut % (Auto) 73.0 (48.0-80.0) % Lymph % (Auto) 15.1 L (16.0-40.0) % [place] % (Auto) 10.4 (0.0-15.0) % Eos % (Auto) 1.2 (0.0-7.0) % Baso % (Auto) 0.3 (0.0-1.5) % Neut # (Auto) 8.5 H (1.4-5.7) K/uL Lymph # (Auto) 1.8 (0.6-2.4) K/uL [place] # (Auto) 1.2 H (0.0-0.8) K/uL Eos # (Auto) 0.1 (0.0-0.7) K/uL Baso # (Auto) 0.0 (0.0-0.1) K/uL Neutrophils % (Manual) 70 (48.0-80.0) % Lymphocytes % (Manual) 22 (16.0-40.0) % Monocytes % (Manual) 1 (0.0-15.0) % Eosinophils % (Manual) 2 (0.0-7.0) % Basophils % (Manual) 2 H (0.0-1.5) % Myelocytes % 3 % Nucleated RBC % 1.0 /100WBC Absolute Seg Neuts 8.1 H (1.4-5.7) Lymphocytes # (Manual) 2.6 H (0.6-2.4) Monocytes # (Manual) 0.1 (0.0-0.8) Eosinophils # (Manual) 0.2 (0.0-0.7) Basophils # (Manual) 0.2 H (0.0-0.1) Absolute Myelocytes 0.3 Nucleated RBCs # 0 K/uL Sodium 143 (136-146) mmol/L Potassium 3.4 L (3.5-5.1) mmol/L Chloride 108 (98-110) mmol/L Carbon Dioxide 25 (21-31) mmol/L BUN 20 (6.0-23.0) mg/dL Creatinine 0.7 (0.6-1.5) mg/dL Est Cr Clr Drug Dosing 60.96 mL/min Estimated GFR (MDRD) > 60.0 ml/min Glucose 93 (60-110) mg/dL Calcium 7.4 L (8.8-10.8) mg/dL Ronald Results Last 24 Hours: Microbiology 07/08/17 20:41 Gram Stain - Final Sputum - Expectorated Sputum Culture - Final YEAST Normal Respiratory [place] 07/05/17 13:47 Aerobic Blood Culture - Preliminary Blood NO GROWTH AFTER 4 DAYS Anaerobic Blood Culture - Preliminary NO GROWTH AFTER 4 DAYS 07/05/17 13:30 Aerobic Blood Culture - Preliminary Blood NO GROWTH AFTER 4 DAYS Anaerobic Blood Culture - Preliminary NO GROWTH AFTER 4 DAYS Med Orders - Current: Current Medications Albuterol/Ipratropium (Duoneb 3.0-0.5 Mg/3 Ml) 3 ml NEB Q6HRRT [facility] Last Admin: 07/10/17 12:06 Dose: 3 ml Aspirin (Halfprin) 81 mg PO DAILY [facility] Last Admin: 07/10/17 08:21 Dose: 81 mg Carvedilol (Coreg) 25 mg PO BID [facility] Last Admin: 07/10/17 08:35 Dose: Not Given Doxazosin Mesylate (Cardura) 8 mg PO BEDTIME [facility] Last Admin: 07/09/17 20:28 Dose: 4 mg Furosemide (Lasix) 40 mg PO BIDDIURETIC [facility] Last Admin: 07/10/17 08:21 Dose: 40 mg Heparin Sodium (Porcine) (Heparin Sodium) 5,000 units SUBCUT Q8H [facility] Last Admin: 07/10/17 04:04 Dose: 5,000 units Piperacillin Sod/Tazobactam (Sod 3.375 gm/ Sodium Chloride) 50 mls @ 50 mls/hr IV Q6H [facility] Last Admin: 07/10/17 08:18 Dose: 50 mls/hr Vancomycin HCl 1,750 mg/ (Sodium Chloride) 500 mls @ 333.333 mls/hr IV Q24H [facility] Last Admin: 07/10/17 09:32 Dose: 333.333 mls/hr Insulin Aspart (Novolog) 0 unit SUBCUT TIDAC [facility] PRN Reason: Protocol Last Admin: 07/10/17 12:28 Dose: 3 units Insulin Detemir (Levemir) 55 unit SUBCUT BEDTIME [facility] Last Admin: 07/09/17 20:24 Dose: 55 units Montelukast Sodium (Singulair) 10 mg PO DAILY [facility] Last Admin: 07/10/17 08:21 Dose: 10 mg Ondansetron HCl (Zofran Odt) 4 mg PO Q4H PRN PRN Reason: nausea, able to take PO Enablex 7.5 Mg 1 each PO DAILY [facility] Last Admin: 07/10/17 08:22 Dose: 1 each Symbicort 160/4.5 2 each INH BID [facility] Last Admin: 07/10/17 08:22 Dose: 2 each Rosuvastatin Calcium (Crestor) 10 mg PO BEDTIME [facility] Last Admin: 07/09/17 20:30 Dose: 10 mg Spironolactone (Aldactone) 25 mg PO DAILY [facility] Last Admin: 07/10/17 08:35 Dose: Not Given Tramadol HCl (Ultram) 50 mg PO TID PRN PRN Reason: Pain Last Admin: 07/09/17 17:32 Dose: 50 mg Vancomycin HCl (Pharmacy To Dose - Vancomycin) 1 dose .XX ASDIRECTED [facility] Discontinued Medications Acetaminophen (Tylenol) 650 mg PO NOW ONE Stop: 07/05/17 10:42 Last Admin: 07/05/17 23:51 Dose: Not Given Albuterol/Ipratropium (Duoneb 3.0-0.5 Mg/3 Ml) 3 ml NEB Q6HRRT [facility] Last Admin: 07/06/17 05:55 Dose: 3 ml Albuterol/Ipratropium (Duoneb 3.0-0.5 Mg/3 Ml) 3 ml NEB Q4H [facility] Last Admin: 07/05/17 23:52 Dose: Not Given Albuterol/Ipratropium (Duoneb 3.0-0.5 Mg/3 Ml) Confirm Administered Dose 3 ml .ROUTE .STK-MED ONE Stop: 07/05/17 23:41 Last Admin: 07/05/17 23:52 Dose: Not Given Albuterol/Ipratropium (Duoneb 3.0-0.5 Mg/3 Ml) Confirm Administered Dose 3 ml .ROUTE .STK-MED ONE Stop: 07/06/17 05:52 Last Admin: 07/06/17 07:44 Dose: Not Given Calcium Carbonate/Glycine (Tums) 1,000 mg PO ONETIME ONE Stop: 07/08/17 13:00 Last Admin: 07/08/17 13:15 Dose: 1,000 mg Furosemide (Lasix) Confirm Administered Dose 40 mg .ROUTE .STK-MED ONE Stop: 07/05/17 11:25 Last Admin: 07/05/17 23:51 Dose: Not Given Furosemide (Lasix) 80 mg IVPUSH BID [facility] Last Admin: 07/07/17 08:49 Dose: 80 mg Furosemide (Lasix) 80 mg IVPUSH BID [facility] Last Admin: 07/05/17 23:52 Dose: Not Given Furosemide (Lasix) 40 mg IV .STK-MED ONE Stop: 07/05/17 11:29 Heparin Sodium (Porcine) (Heparin Sodium) 5,000 units IV .STK-MED ONE Stop: 07/05/17 15:07 Hydralazine HCl (Apresoline) 10 mg IVPUSH ONETIME ONE Stop: 07/05/17 23:21 Last Admin: 07/05/17 23:44 Dose: 10 mg Sodium Chloride (Normal Saline) 1,000 mls @ 125 mls/hr IV STAT [facility] Last Admin: 07/05/17 10:39 Dose: 125 mls/hr Sodium Chloride (Normal Saline) Confirm Administered Dose 50 mls @ as directed .ROUTE .STK-MED ONE Stop: 07/05/17 11:30 Last Admin: 07/05/17 23:52 Dose: Not Given Piperacillin Sod/Tazobactam (Sod 4.5 gm/ Sodium Chloride) 100 mls @ 100 mls/hr IV Q6H [facility] Last Admin: 07/06/17 08:30 Dose: 100 mls/hr Magnesium Sulfate 4 gm/ Premix 100 mls @ 25 mls/hr IV ONETIME ONE Stop: 07/06/17 14:35 Last Admin: 07/06/17 10:55 Dose: 25 mls/hr Piperacillin Sod/Tazobactam (Sod 3.375 gm/ Sodium Chloride) 50 mls @ as directed IV .STK-MED ONE Stop: 07/05/17 11:29 Insulin Aspart (Novolog) 35 unit SUBCUT ACBREAKFAST [facility] Last Admin: 07/06/17 07:20 Dose: 35 unit Insulin Aspart (Novolog) 35 unit SUBCUT ACDINNER [facility] Insulin Aspart (Novolog) 40 unit SUBCUT ACLUNCH [facility] Last Admin: 07/06/17 13:12 Dose: 40 unit Insulin Aspart (Novolog) 35 unit SUBCUT 0730,1700 [facility] Last Admin: 07/07/17 10:38 Dose: Not Given Insulin Aspart (Novolog) 0 unit SUBCUT .STK-MED ONE Stop: 07/05/17 17:15 Methylprednisolone Sodium Succinate (Solu-Medrol) Confirm Administered Dose 125 mg .ROUTE .STK-MED ONE Stop: 07/05/17 11:27 Last Admin: 07/05/17 23:52 Dose: Not Given Methylprednisolone Sodium Succinate (Solu-Medrol) 125 mg IM .STK-MED ONE Stop: 07/05/17 11:29 Montelukast Sodium (Singulair) 10 mg PO Q8HR [facility] Last Admin: 07/06/17 03:14 Dose: Not Given Non-Formulary Medication (Budesonide/Formoterol) 2 inh IH BID [facility] Non-Formulary Medication (Darifenacin [Enablex]) 7.5 mg PO DAILY [facility] Potassium Chloride (Klor-Con) 40 meq PO ONETIME ONE Stop: 07/08/17 11:57 Last Admin: 07/08/17 13:16 Dose: Not Given Potassium Chloride (Klor-Con M20) 40 meq PO ONETIME ONE Stop: 07/08/17 13:16 Last Admin: 07/08/17 13:15 Dose: 40 meq Potassium Chloride (Klor-Con M20) 40 meq PO ONETIME ONE Stop: 07/09/17 10:13 Last Admin: 07/09/17 10:31 Dose: 40 meq Potassium Chloride (Klor-Con M20) 40 meq PO ONETIME ONE Stop: 07/10/17 10:41 Last Admin: 07/10/17 12:25 Dose: 40 meq - Exam Quality Assessment: Supplemental Oxygen General: Cooperative Neck: Supple, No JVD Lungs: Normal Respiratory Effort, Decreased Breath Sounds Cardiovascular: Regular Rate, Regular Rhythm GI/Abdominal Exam: Normal Bowel Sounds, Soft, Non-Tender Back Exam: Normal Inspection. No: CVA Tenderness (L), CVA Tenderness (R) Extremities: Normal Capillary Refill Peripheral Pulses: 1+: Dorsalis Pedis (L), Dorsalis Pedis (R) Skin: Moist Neurological: No New Focal Deficit - Problem List Review Problem List Initiated/Reviewed/Updated: Yes - My Orders Last 24 Hours: My Active Orders 07/13/17 05:11 BMP [BASIC METABOLIC PANEL,BMP] [CHEM] AM CBC WITH AUTO DIFF [HEME] AM 07/14/17 05:11 BMP [BASIC METABOLIC PANEL,BMP] [CHEM] AM CBC WITH AUTO DIFF [HEME] AM 07/10/17 08:41 CDIFF TOX A+B [OP] Routine 07/10/17 08:42 URINALYSIS W/MICROSCOPIC [UA W/MICROSCOPIC] [URIN] Routine 07/10/17 10:15 Chest 2V [CR] Routine 07/10/17 10:17 Consult to Physical Therapy [PT Evaluation and Treatment] [CONS] Routine 07/11/17 05:11 BMP [BASIC METABOLIC PANEL,BMP] [CHEM] AM CBC WITH AUTO DIFF [HEME] AM 07/12/17 05:11 BMP [BASIC METABOLIC PANEL,BMP] [CHEM] AM CBC WITH AUTO DIFF [HEME] AM - Plan Plan:: 71-year-old female with with PMH of CHF, hypertension, CAD, CT in 2009, COPD, interstitial lung disease, and type 2 insulin-dependent diabetes. admitted 07/05/17 for shortness of breath and hypoxia secondary to CAP #Hypoxia -developed again overnight -Leukocytosis still present -Vancomycin added yesterday based on sputum gram stain but sputum culture complete and is WNL, BC NGTD plan: -repeat CXR -continue Zosyn IV -DC Vancomycin #CAP -plan as per above #COPD & ILD -continue home Symbicort & singulair -continue duonebs #Hypertension -patients Doxazosin dosage is incorrect in records, she should be on 4 mg BID but she is on 8 mg BID -will change to correct dose and update EHR #Type 2 diabetes -continue ISS High dose #HFpEF -echo completed and reveals LVEF 55% & mild concentric lv hypertrophy -no JVD, no pedal edema, chest CTAB VT prophylaxis: SCD, heparin every 8 hours Disposition: 1-2 days pending.
--- NOTE | 2017-07-10 16:35 | CR ---
EXAM DATE: 07/05/17 PATIENT'S AGE: 71 Patient: MULUGETA RONDON Facility: [place], [place] Site . Site : 1945 Study: XRay Chest [id number]/29/2017 10:46:56 AM Ordering Physician: Doc Hairston Final Report: INDICATION: HYPOXIA, PNEUMONIA NOT IMPROVING HISTORY: Hypoxia. COMPARISON: 07/05/2017. TECHNIQUE: Chest, 2 views. FINDINGS: Airspace opacities in both lungs, with interval improvement in the left upper lobe when compared with previous. There is no focal consolidation or pneumothorax. Central airway is normal. Lateral/posterior costophrenic sulci are sharp. IMPRESSION: 1. Airspace opacities in both lungs. This has improved. 2. This could represent resolving pneumonia or alveolar pulmonary edema. Dictated by Jean Paul Rodriguez MD @ 07/10/2017 11:13:21 AM Dictated by: Jean Paul Rodriguez MD @ 07/10/2017 11:13:31 (Electronic Signature) Report Signed by Proxy. [facility]
--- NOTE | 2017-07-10 18:11 | ECHO ---
The echocardiogram report can be seen in this patient's EMR (electronic medical record) in the Report section. The report has also been scanned into PACS and can be seen there. [facility]
[2017-07-10] MEDS: Rosuvastatin 10 MG Tab PO SCH (20:45)
[2017-07-10] MEDS: Insulin Detemir 100 Units/ML 3 ML Pen SUBCUT SCH (20:46)
[2017-07-10] MEDS ORDERED: Doxazosin 4 MG Tab PO SCH (21:00)
[2017-07-11] MEDS: Piperacillin/Tazobactam 3.375 GM in Sodium Chloride 0.9% 50 ML IV SCH ×2 (03:52→08:30)
[2017-07-11] MEDS: Heparin Sodium 5,000 Units/ML Vial SUBCUT SCH ×2 (04:00→13:13)
[2017-07-11 06:05] LABS: CHLORIDE,CL 110 mmol/L (98-110); SODIUM,NA 144 mmol/L (136-146)
[2017-07-11] MEDS: Albuterol/Ipratropium 3.0-0.5 MG/3 ML Neb Soln NEB SCH ×2 (06:12→12:10)
[2017-07-11] MEDS: traMADol 50 MG Tab PO PRN (07:52)
[2017-07-11] MEDS: Aspirin 81 MG Tab.EC PO SCH (08:24)
[2017-07-11] MEDS: Spironolactone 25 MG Tab PO SCH (08:25)
[2017-07-11] MEDS: Montelukast 10 MG Tab PO SCH (08:25)
[2017-07-11] MEDS: Carvedilol 25 MG Tab PO SCH (08:25)
[2017-07-11] MEDS: Furosemide 40 MG Tab PO SCH ×2 (08:25→13:15)
[2017-07-11] MEDS: DARIFENACIN 7.5 MG PO SCH (08:28)
[2017-07-11] MEDS: SYMBICORT 160/4.5 INH SCH (08:28)
[2017-07-11] MEDS: Insulin Aspart 100 Units/ML 3 ML Pen SUBCUT SCH ×2 (11:13→12:32)
[2017-07-11 12:18] VITALS: BP 113/64
--- NOTE | 2017-07-11 12:39 | PCM.DCSUM1 ---
Discharge Summary - Hospital Course Free Text/Narrative:: 71 year old fm admitted 07/05/17 for hypoxia secondary to CAP. She was treated inititally with Zosyn and duonebs. She was intermittently treated with Vancomycin due to sputum gram stain with gm positive cocci in clusters however the culture returned negative so vancomycin was discontinued. Due to her underlying COPD and ILD she required prolonged hospitalization. She was discharged home on 07/11/17. Her hypoxia was resolved, she was tolerating po intake, she was ambulatory, producing urine and having bowel movements. She was instructed to f/u with PCP within 2 weeks of discharge #CAP -patient improving but due to prolonged leukocytosis which is currrently borderline elevated, decision made to treat with antibiotics for 10 days total -she was discharged home on Azithromycin 500 mg QD for 3 days to total 10 days -f/u with PCP in #COPD & ILD -continue home Symbicort & singulair #Hypertension -patients Doxazosin dosage was incorrect in records however the EHR was updated with the correct dose -resume home meds as directed #Type 2 diabetes -resume home meds as directed #HFpEF -echo completed and reveals LVEF 55% & mild concentric lv hypertrophy -no JVD, no pedal edema, chest CTAB -f/u with PCP - Discharge Data Discharge Date: 07/11/17 Discharge Disposition: Home, Self-Care 01 Condition: Stable - Patient Summary/Data Consults: Consultations 07/10/17 10:17 Consult to Physical Therapy [PT Evaluation and Treatment] [CONS] Routine - Patient Instructions Diet: Usual Diet as Tolerated Activity: As Tolerated Notify Provider of: Fever, Nausea and/or Vomiting - Discharge Plan Prescriptions/Med Rec: Azithromycin 500 mg PO DAILY 3 Days #3 tablet Home Medications: Home Meds Darifenacin [Enablex] 7.5 mg PO DAILY 10/17/13 [History] Doxazosin [Cardura] 4 mg PO BEDTIME 10/17/13 [History] Montelukast [Singulair] 10 mg PO DAILY 10/17/13 [History] traMADol [Ultram] 50 mg PO TID PRN 10/17/13 [History] Albuterol [Ventolin HFA] 2 inh IH Q6H PRN 04/12/16 [History] Aspirin [Halfprin] 81 mg PO DAILY 04/12/16 [History] Budesonide/Formoterol [Symbicort 160-4.5 MCG] 2 inh IH BID 04/12/16 [History] Insulin Aspart [Novolog Flexpen] 35 unit SUBCUT ACBREAKFAST 04/12/16 [History] Insulin Aspart [Novolog Flexpen] 35 units SUBCUT ACDINNER 04/12/16 [History] Insulin Aspart [Novolog Flexpen] 40 units SUBCUT ACLUNCH 04/12/16 [History] Rosuvastatin Calcium [Crestor] 10 mg PO BEDTIME 04/12/16 [History] Carvedilol 25 mg PO BID 07/06/17 [History] Cholecalciferol (Vitamin D3) [Vitamin D3] 2,000 units PO DAILY 07/06/17 [History ] Fexofenadine [Kim] 180 mg PO DAILY 07/06/17 [History] Ondansetron HCl [Zofran] 4 mg PO TID PRN 07/06/17 [History] Potassium Chloride [Klor-Con M20] 20 meq PO BID 07/06/17 [History] Spironolactone [Aldactone] 25 mg PO DAILY 07/06/17 [History] Ubidecarenone [Coq-10] 100 mg PO DAILY 07/06/17 [History] rOPINIRole HCl [Ropinirole HCl] 0.5 mg PO BEDTIME 07/06/17 [History] Azithromycin 500 mg PO DAILY 3 Days #3 tablet 07/11/17 [Rx] Patient Handouts: Chronic Obstructive Pulmonary Disease Exacerbation, Easy-to- Read, Azithromycin tablets, Community-Acquired Pneumonia, Adult, [id number] Referrals: Lalo Sher MD [Primary Care Provider] - 07/20/17 2:00 pm - Review of Systems General: Reports: No Symptoms HEENT: Reports: No Symptoms Pulmonary: Reports: No Symptoms Cardiovascular: Reports: No Symptoms Gastrointestinal: Reports: No Symptoms Genitourinary: Reports: No Symptoms Musculoskeletal: Reports: No Symptoms Skin: Reports: No Symptoms Neurological: Reports: No Symptoms Psychiatric: Reports: No Symptoms - Patient Data Vitals - Most Recent: Last Vital Signs Temp 36.0 C 07/11/17 12:00 Pulse 71 07/11/17 12:00 Resp 22 H 07/11/17 12:00 BP 113/64 07/11/17 12:00 Pulse Ox 90 L 07/11/17 12:00 Weight - Most Recent: 124 kg I&O - Last 24 hours: Intake & Output 07/10/17 07/11/17 07/11/17 22:59 06:59 14:59 Intake Total 1760 550 50 Output Total 600 420 Balance 1160 130 50 Lab Results - Last 24 hrs: Laboratory Results - last 24 hr 07/10/17 07/11/17 07/11/17 Range/Units 14:10 04:59 04:59 WBC 11.07 H (4.0-11.0) K/uL RBC 3.26 L (4.30-5.90) M/uL Hgb 10.2 L (12.0-16.0) g/dL Hct 31.5 L (36.0-46.0) % MCV 96.6 (80.0-98.0) fL MCH 31.3 (27.0-32.0) pg MCHC 32.4 (31.0-37.0) g/dL RDW Std Deviation 54.4 (28.0-62.0) fl RDW Coeff of Donovan 16 H (11.0-15.0) % Plt Count 244 (150-400) K/uL MPV 9.70 (7.40-12.00) fL Add Manual Diff YES Neutrophils % (Manual) 73 (48.0-80.0) % Band Neutrophils % 5 % Lymphocytes % (Manual) 15 L (16.0-40.0) % Monocytes % (Manual) 7 (0.0-15.0) % Nucleated RBC % 0.6 /100WBC Absolute Seg Neuts 8.1 H (1.4-5.7) Band Neutrophils # 0.6 Lymphocytes # (Manual) 1.7 (0.6-2.4) Monocytes # (Manual) 0.8 (0.0-0.8) Nucleated RBCs # 0 K/uL Sodium 144 (136-146) mmol/L Potassium 3.8 (3.5-5.1) mmol/L Chloride 110 (98-110) mmol/L Carbon Dioxide 25 (21-31) mmol/L BUN 16 (6.0-23.0) mg/dL Creatinine 0.7 (0.6-1.5) mg/dL Est Cr Clr Drug Dosing 60.96 mL/min Estimated GFR (MDRD) > 60.0 ml/min Glucose 121 H (60-110) mg/dL Calcium 7.4 L (8.8-10.8) mg/dL Urine Color YELLOW Urine Appearance SLT CLOUDY Urine pH 6.0 (5.0-8.0) Ur Specific [place] 1.020 (1.001-1.035) Urine Protein NEGATIVE (NEGATIVE) mg/dL Urine Glucose (UA) NEGATIVE (NEGATIVE) mg/dL Urine Ketones NEGATIVE (NEGATIVE) mg/dL Urine Occult Blood NEGATIVE (NEGATIVE) Urine Nitrite NEGATIVE (NEGATIVE) Urine Bilirubin NEGATIVE (NEGATIVE) Urine Urobilinogen 0.2 (<2.0) EU/dL Ur Leukocyte Esterase SMALL (NEGATIVE) Urine RBC 3-6 (0-2/HPF) Urine WBC 8-10 (0-5/HPF) Ur Epithelial Cells MODERATE (NONE-FEW) Urine Bacteria FEW (NEGATIVE) Urine Yeast MANY ADI Results - Last 24 hrs: Microbiology 07/05/17 13:47 Aerobic Blood Culture - Final Blood NO GROWTH AFTER 5 DAYS Anaerobic Blood Culture - Final NO GROWTH AFTER 5 DAYS 07/05/17 13:30 Aerobic Blood Culture - Final Blood NO GROWTH AFTER 5 DAYS Anaerobic Blood Culture - Final NO GROWTH AFTER 5 DAYS 07/10/17 14:00 Clostridium difficile Toxin A&B (M) - Final Stool / Feces Negative for C.Diff Toxin/AG 07/08/17 20:41 Gram Stain - Final Sputum - Expectorated Sputum Culture - Final YEAST Normal Respiratory Shanta Med Orders - Current: Current Medications Albuterol/Ipratropium (Duoneb 3.0-0.5 Mg/3 Ml) 3 ml NEB Q6HRRT [facility] Last Admin: 07/11/17 12:10 Dose: 3 ml Aspirin (Halfprin) 81 mg PO DAILY [facility] Last Admin: 07/11/17 08:24 Dose: 81 mg Carvedilol (Coreg) 25 mg PO BID [facility] Last Admin: 07/11/17 08:25 Dose: 25 mg Doxazosin Mesylate (Cardura) 4 mg PO BEDTIME [facility] Last Admin: 07/10/17 20:45 Dose: 4 mg Furosemide (Lasix) 40 mg PO BIDDIURETIC [facility] Last Admin: 07/11/17 08:25 Dose: 40 mg Heparin Sodium (Porcine) (Heparin Sodium) 5,000 units SUBCUT Q8H [facility] Last Admin: 07/11/17 04:00 Dose: 5,000 units Piperacillin Sod/Tazobactam (Sod 3.375 gm/ Sodium Chloride) 50 mls @ 50 mls/hr IV Q6H [facility] Last Admin: 07/11/17 08:30 Dose: 50 mls/hr Insulin Aspart (Novolog) 0 unit SUBCUT TIDAC RODRIGO PRN Reason: Protocol Last Admin: 07/11/17 11:13 Dose: Not Given Insulin Detemir (Levemir) 55 unit SUBCUT BEDTIME [facility] Last Admin: 07/10/17 20:46 Dose: 55 units Montelukast Sodium (Singulair) 10 mg PO DAILY [facility] Last Admin: 07/11/17 08:25 Dose: 10 mg Ondansetron HCl (Zofran Odt) 4 mg PO Q4H PRN PRN Reason: nausea, able to take PO Last Admin: 07/11/17 07:56 Dose: 4 mg Enablex 7.5 Mg 1 each PO DAILY [facility] Last Admin: 07/11/17 08:28 Dose: 1 each Symbicort 160/4.5 2 each INH BID [facility] Last Admin: 07/11/17 08:28 Dose: 2 each Rosuvastatin Calcium (Crestor) 10 mg PO BEDTIME [facility] Last Admin: 07/10/17 20:45 Dose: 10 mg Spironolactone (Aldactone) 25 mg PO DAILY [facility] Last Admin: 07/11/17 08:25 Dose: 25 mg Tramadol HCl (Ultram) 50 mg PO TID PRN PRN Reason: Pain Last Admin: 07/11/17 07:52 Dose: 50 mg Discontinued Medications Acetaminophen (Tylenol) 650 mg PO NOW ONE Stop: 07/05/17 10:42 Last Admin: 07/05/17 23:51 Dose: Not Given Albuterol/Ipratropium (Duoneb 3.0-0.5 Mg/3 Ml) 3 ml NEB Q6HRRT [facility] Last Admin: 07/06/17 05:55 Dose: 3 ml Albuterol/Ipratropium (Duoneb 3.0-0.5 Mg/3 Ml) 3 ml NEB Q4H [facility] Last Admin: 07/05/17 23:52 Dose: Not Given Albuterol/Ipratropium (Duoneb 3.0-0.5 Mg/3 Ml) Confirm Administered Dose 3 ml .ROUTE .STK-MED ONE Stop: 07/05/17 23:41 Last Admin: 07/05/17 23:52 Dose: Not Given Albuterol/Ipratropium (Duoneb 3.0-0.5 Mg/3 Ml) Confirm Administered Dose 3 ml .ROUTE .STK-MED ONE Stop: 07/06/17 05:52 Last Admin: 07/06/17 07:44 Dose: Not Given Calcium Carbonate/Glycine (Tums) 1,000 mg PO ONETIME ONE Stop: 07/08/17 13:00 Last Admin: 07/08/17 13:15 Dose: 1,000 mg Doxazosin Mesylate (Cardura) 8 mg PO BEDTIME RODRIGO Last Admin: 07/09/17 20:28 Dose: 4 mg Furosemide (Lasix) Confirm Administered Dose 40 mg .ROUTE .STK-MED ONE Stop: 07/05/17 11:25 Last Admin: 07/05/17 23:51 Dose: Not Given Furosemide (Lasix) 80 mg IVPUSH BID [facility] Last Admin: 07/07/17 08:49 Dose: 80 mg Furosemide (Lasix) 80 mg IVPUSH BID [facility] Last Admin: 07/05/17 23:52 Dose: Not Given Furosemide (Lasix) 40 mg IV .STK-MED ONE Stop: 07/05/17 11:29 Heparin Sodium (Porcine) (Heparin Sodium) 5,000 units IV .STK-MED ONE Stop: 07/05/17 15:07 Hydralazine HCl (Apresoline) 10 mg IVPUSH ONETIME ONE Stop: 07/05/17 23:21 Last Admin: 07/05/17 23:44 Dose: 10 mg Sodium Chloride (Normal Saline) 1,000 mls @ 125 mls/hr IV STAT RODRIGO Last Admin: 07/05/17 10:39 Dose: 125 mls/hr Sodium Chloride (Normal Saline) Confirm Administered Dose 50 mls @ as directed .ROUTE .STK-MED ONE Stop: 07/05/17 11:30 Last Admin: 07/05/17 23:52 Dose: Not Given Piperacillin Sod/Tazobactam (Sod 4.5 gm/ Sodium Chloride) 100 mls @ 100 mls/hr IV Q6H [facility] Last Admin: 07/06/17 08:30 Dose: 100 mls/hr Magnesium Sulfate 4 gm/ Premix 100 mls @ 25 mls/hr IV ONETIME ONE Stop: 07/06/17 14:35 Last Admin: 07/06/17 10:55 Dose: 25 mls/hr Piperacillin Sod/Tazobactam (Sod 3.375 gm/ Sodium Chloride) 50 mls @ as directed IV .STK-MED ONE Stop: 07/05/17 11:29 Vancomycin HCl 1,750 mg/ (Sodium Chloride) 500 mls @ 333.333 mls/hr IV Q24H [facility] Last Admin: 07/10/17 09:32 Dose: 333.333 mls/hr Insulin Aspart (Novolog) 35 unit SUBCUT ACBREAKFAST [facility] Last Admin: 07/06/17 07:20 Dose: 35 unit Insulin Aspart (Novolog) 35 unit SUBCUT ACDINNER [facility] Insulin Aspart (Novolog) 40 unit SUBCUT ACLUNCH [facility] Last Admin: 07/06/17 13:12 Dose: 40 unit Insulin Aspart (Novolog) 35 unit SUBCUT 0730,1700 [facility] Last Admin: 07/07/17 10:38 Dose: Not Given Insulin Aspart (Novolog) 0 unit SUBCUT .STK-MED ONE Stop: 07/05/17 17:15 Methylprednisolone Sodium Succinate (Solu-Medrol) Confirm Administered Dose 125 mg .ROUTE .STK-MED ONE Stop: 07/05/17 11:27 Last Admin: 07/05/17 23:52 Dose: Not Given Methylprednisolone Sodium Succinate (Solu-Medrol) 125 mg IM .STK-MED ONE Stop: 07/05/17 11:29 Montelukast Sodium (Singulair) 10 mg PO Q8HR [facility] Last Admin: 07/06/17 03:14 Dose: Not Given Non-Formulary Medication (Budesonide/Formoterol) 2 inh IH BID [facility] Non-Formulary Medication (Darifenacin [Enablex]) 7.5 mg PO DAILY [facility] Potassium Chloride (Klor-Con) 40 meq PO ONETIME ONE Stop: 07/08/17 11:57 Last Admin: 07/08/17 13:16 Dose: Not Given Potassium Chloride (Klor-Con M20) 40 meq PO ONETIME ONE Stop: 07/08/17 13:16 Last Admin: 07/08/17 13:15 Dose: 40 meq Potassium Chloride (Klor-Con M20) 40 meq PO ONETIME ONE Stop: 07/09/17 10:13 Last Admin: 07/09/17 10:31 Dose: 40 meq Potassium Chloride (Klor-Con M20) 40 meq PO ONETIME ONE Stop: 07/10/17 10:41 Last Admin: 07/10/17 12:25 Dose: 40 meq Vancomycin HCl (Pharmacy To Dose - Vancomycin) 1 dose .XX ASDIRECTED RODRIGO - Exam General: Reports: Alert, Oriented, Cooperative, No Acute Distress HEENT: Reports: Pupils Equal, Pupils Reactive Neck: Reports: Supple, No JVD Lungs: Reports: Clear to Auscultation, Normal Respiratory Effort Cardiovascular: Reports: Regular Rate, Regular Rhythm Extremities: No Pedal Edema Neurological: Reports: No New Focal Deficit *Q Meaningful Use (DIS) - VTE *Q VTE Criteria *Q: - Stroke *Q Stroke Criteria *Q: - AMI *Q AMI Criteria *Q:
== END 2017-07-11 14:20 | disposition home or self-care (01) | DRG 194 ==
LOC: MW.ED 09:45 → MW.MS 11:20 → MW.ED 12:00 → UNDOADMIN 12:00 → UNDODISIN 07-11 14:20
PROVIDERS: ADMIT Family Medicine; ATTEND Family Medicine
DX: J18.9 Pneumonia, unspecified organism (principal); J84.9 Interstitial pulmonary disease, unspecified; I10 Essential (primary) hypertension; M19.90 Unspecified osteoarthritis, unspecified site; G89.29 Other chronic pain; M54.9 Dorsalgia, unspecified; E11.9 Type 2 diabetes mellitus without complications; Z87.891 Personal history of nicotine dependence; J44.9 Chronic obstructive pulmonary disease, unspecified; R09.02 Hypoxemia; I11.0 Hypertensive heart disease with heart failure; I50.9 Heart failure, unspecified; E11.59 Type 2 diabetes mellitus with other circulatory complications; I25.10 Atherosclerotic heart disease of native coronary artery without angina pectoris; Z88.8 Allergy status to other drugs, medicaments and biological substances; Z79.82 Long term (current) use of aspirin; Z79.4 Long term (current) use of insulin; Z79.899 Other long term (current) drug therapy
CPT/HCPCS: 36415; 71010; 80053; 81001; 82550; 82553; 83880; 84484; 85025; 87804 ×2; 93005; 96360; 96361; 99285; J1940; J2543; J2930; J7040; J7050; 71020; 71020-26; 80048; 82962; 83605; 83735; 84100; 87040; 87070; 87205; 87324; 93306; 94640; 97116-GP; 97161-GP; 99283; A9270-GY; J0360; J1644; J1815-GY ×2; J3370; J3475; J7030

== ENCOUNTER 2020-07-15 23:45 | Observation (INO) | payer MEDICARE, BC ==
[2020-07-16] MEDS ORDERED: Sodium Chloride 0.9% 2.5 ML Syringe FLUSH PRN ×2 (00:01→08:28)
[2020-07-16] MEDS ORDERED: Aspirin 81 MG Tab.Chew PO ONE (00:01)
[2020-07-16] MEDS ORDERED: Sodium Chloride 0.9% 10 ML Syringe FLUSH PRN (00:01)
[2020-07-16] MEDS ORDERED: Ondansetron 4 MG/2 ML SDV IVPUSH ONE (00:01)
[2020-07-16] MEDS ORDERED: Nitroglycerin 0.4 MG Tab.SL SL PRN (00:03)
[2020-07-16] MEDS ORDERED: Nitroglycerin 0.4 MG Tab.SL ONE (00:06)
--- NOTE | 2020-07-16 00:18 | EDM.PDOC ---
ED HPI GENERAL MEDICAL PROBLEM - General Chief Complaint: Chest Pain Stated Complaint: CHEST PAIN Time Seen by Provider: 07/15/20 23:52 - History of Present Illness INITIAL COMMENTS - FREE TEXT/NARRATIVE: HISTORY AND PHYSICAL: History of present illness: This is a 74-year-old female with a history significant for hypertension, diabetes, CHF, COPD, interstitial pulmonary disease, lung cancer who is currently not being treated, CAD diagnosed in 2008 but did not require a stent or surgery per patient, presents to the ER today complaining of left-sided chest pressure with associated nausea and increased shortness of breath. Patient reports that the pain is exertional in nature and when she walks the pain worsens. She reports that the pain improves with rest. Pain is not exacerbated with deep inspiration or cough. Patient denies any recent fevers, shakes, chills, nausea, vomiting, diarrhea, dysuria, frequency, urgency, abdominal pain, diaphoresis, melena, bright red blood per rectum, hematuria. Patient reports that she was at rest when the pain began and when she started to walk he started feeling more short of breath and more discomfort in her chest. She reports she sat down and the pain started to improve. Patient reports that she received 2 sublingual nitroglycerin with some improvement in her pain. Patient received 2 aspirin by EMS as well. Review of systems: As per history of present illness and below otherwise all systems reviewed and negative. Past medical history: As per history of present illness and as reviewed below otherwise noncontributory. Surgical history: As per history of present illness and as reviewed below otherwise noncontributory. Social history: No reported history of drug or alcohol abuse. Family history: As per history of present illness and as reviewed below otherwise noncontributory. Physical exam: Constitutional: Patient is oriented to person, place, and time. Appears well- developed and well-nourished. No distress. HEENT: Moist mucous membranes Head: Normocephalic and atraumatic Eyes: Right eye exhibits no discharge. Left eye exhibits no discharge. No scleral icterus Neck: Normal range of motion. No tracheal deviation present. Cardiovascular: Normal rate and regular rhythm. Pulmonary: Effort normal, no respiratory distress. Abdominal: No distention Musculoskeletal: Normal range of motion Neurologic: Alert and oriented to person, place and time. Skin: [place], warm and dry. Psychiatric: Normal mood and affect. Behavior is normal. Judgment and thought content normal. Nursing note and vital signs have been reviewed This patient was seen and evaluated during the 2019 SARS-CoV-2 novel coronavirus pandemic period. Community viral transmission is ongoing at time of this encounter and the emergency department is operating under pandemic response procedures. Diagnostics: EKG: As interpreted by ER physician: Charu: Nonspecific ST-T wave abnormalities Normal axis No evidence of ST elevation GA Normal sinus rhythm heart rate of 77 Chest Xray: Normal cardiac silhouette No infiltrates or effusions identified. No PTX No evidence of acute bony fracture. As interpreted by ER MD: [employer]: [] Assessment and plan: This is a 74-year-old female who presents ER today secondary to left-sided chest pressure that started approximately 9:45. Patient reports that she had associated nausea and shortness of breath with it. Patient reports the pain is exertional in nature and improved with rest. Patient will have a CBC, CMP, troponin, EKG, chest x-ray. Patient will be given aspirin as well as a low nitroglycerin in the ED and will be reevaluated for likely admission. Definitive disposition and diagnosis as appropriate pending reevaluation and review of above. chest area Pain Score (Numeric/FACES): 5 - Related Data Allergies Allergy/AdvReac Type Severity Reaction Status Date / Time GIGI Inhibitors Allergy Nausea Verified 07/16/20 02:09 amlodipine besylate Allergy Nausea Verified 07/16/20 02:09 [From Lotrel] benazepril HCl [From Lotrel] Allergy Nausea Verified 07/16/20 02:09 cephalexin [Cephalexin] Allergy Nausea Verified 07/16/20 02:09 ibuprofen [From Advil] Allergy Nausea Verified 07/16/20 02:09 levofloxacin [From Levaquin] Allergy Nausea Verified 07/16/20 02:09 metformin Allergy Nausea Verified 07/16/20 02:09 Penicillins Allergy Nausea Verified 07/16/20 02:09 promethazine Allergy Hallucinati Verified 07/16/20 02:09 ons Home Meds: Home Meds Rosuvastatin Calcium [Crestor] 10 mg PO BEDTIME 04/12/16 [History] Famotidine 40 mg PO DAILY 30 Days #30 tablet 03/18/18 [Rx] Allopurinol [Zyloprim] 100 mg PO DAILY 07/16/20 [History] Aspirin 81 mg PO DAILY 07/16/20 [History] Cholecalciferol (Vitamin D3) [Vitamin D3] 2,000 unit PO DAILY 07/16/20 [History] Darifenacin Hydrobromide [Darifenacin ER] 7.5 mg PO DAILY 07/16/20 [History] Doxazosin Mesylate [Cardura] 4 mg PO DAILY 07/16/20 [History] FA/Lycopene/Lut/MV,Ca,Iron,Min [Centrum] 1 tab PO DAILY 07/16/20 [History] Furosemide [Lasix] 80 mg PO BID 07/16/20 [History] Insulin Aspart [NovoLOG] 1 injection SQ ASDIRECTED 07/16/20 [History] Insulin Detemir [Levemir Flextouch] 58 units SQ DAILY 07/16/20 [History] Isosorbide Mononitrate [Imdur] 30 mg PO DAILY 07/16/20 [History] Loratadine [Claritin] 10 mg PO DAILY PRN 07/16/20 [History] Montelukast Sodium [Singulair] 10 mg PO BEDTIME 07/16/20 [History] Potassium Chloride 20 meq PO DAILY 07/16/20 [History] Spironolactone [Aldactone] 25 mg PO DAILY 07/16/20 [History] Turmeric Root Extract [Turmeric] 1 gm PO DAILY 07/16/20 [History] carvediloL [Carvedilol] 25 mg PO BID 07/16/20 [History] rOPINIRole [Requip] 0.5 mg PO BEDTIME 07/16/20 [History] traMADol [Ultram] 50 mg PO TID PRN 07/16/20 [History] Past Medical History HEENT History: Reports: None Cardiovascular History: Reports: Hypertension, [place] Other Cardiovascular History: Heart Attack Respiratory History: Reports: Asthma, Interstitial Lung Disease Gastrointestinal History: Reports: None Genitourinary History: Reports: None DEGREE CLERK History: Reports: None Musculoskeletal History: Reports: Arthritis, Back Pain, Chronic, Other (See Below) Other Musculoskeletal History: chronic knee pain Neurological History: Reports: Neuropathy, Diabetic, Other (See Below) Other Neuro History: restless legs Psychiatric History: Reports: None Endocrine/Metabolic History: Reports: Diabetes, Type II, Other (See Below) Other Endocrine/Metabolic History: chronic steriod use Insulin Pump Model and Mix House Operator: None Hematologic History: Reports: None Immunologic History: Reports: None Oncologic (Cancer) History: Reports: Lung Dermatologic History: Reports: None - Infectious Disease History Infectious Disease History: Reports: Chicken Pox - Past Surgical History Head Surgeries/Procedures: Reports: None HEENT Surgical History: Reports: None Cardiovascular Surgical History: Reports: None Respiratory Surgical History: Reports: Lung Biopsies GI Surgical History: Reports: Appendectomy, Cholecystectomy Female Surgical History: Reports: Hysterectomy Endocrine Surgical History: Reports: None Neurological Surgical History: Reports: None Musculoskeletal Surgical History: Reports: None Oncologic Surgical History: Reports: None Dermatological Surgical History: Reports: None Social & Family History - Family History Family Medical History: No Pertinent Family History - Tobacco Use Second Hand Smoke Exposure: No - Caffeine Use Caffeine Use: Reports: Coffee - Recreational Drug Use Recreational Drug Use: No ED ROS GENERAL - Review of Systems Review Of Systems: See Below ED EXAM, GENERAL - Physical Exam Exam: See Below Course - Vital Signs Last Recorded V/S: Last Vital Signs Temp 97.6 F 07/16/20 11:06 Pulse 59 L 07/16/20 11:06 Resp 18 07/16/20 11:06 BP 157/59 H 07/16/20 11:06 Pulse Ox 98 07/16/20 11:06 - Orders/Labs/Meds Labs: Laboratory Tests 07/16/20 07/16/20 07/16/20 Range/Units 00:00 00:00 00:00 WBC 11.54 H (4.0-11.0) K/uL RBC 4.48 (4.30-5.90) M/uL Hgb 14.8 (12.0-16.0) g/dL Hct 45.1 (36.0-46.0) % MCV 100.7 H (80.0-98.0) fL MCH 33.0 H (27.0-32.0) pg MCHC 32.8 (31.0-37.0) g/dL RDW Std Deviation 53.0 (28.0-62.0) fl RDW Coeff of Donovan 15 (11.0-15.0) % Plt Count 253 (150-400) K/uL MPV 10.60 (7.40-12.00) fL Neut % (Auto) 67.4 (48.0-80.0) % Lymph % (Auto) 18.6 (16.0-40.0) % [place] % (Auto) 10.6 (0.0-15.0) % Eos % (Auto) 3.1 (0.0-7.0) % Baso % (Auto) 0.3 (0.0-1.5) % Neut # (Auto) 7.8 H (1.4-5.7) K/uL Lymph # (Auto) 2.2 (0.6-2.4) K/uL [place] # (Auto) 1.2 H (0.0-0.8) K/uL Eos # (Auto) 0.4 (0.0-0.7) K/uL Baso # (Auto) 0.0 (0.0-0.1) K/uL Nucleated RBC % 0.0 /100WBC Nucleated RBCs # 0 K/uL INR 1.08 APTT 24.7 (18.6-31.3) SEC Sodium (136-145) mmol/L Potassium (3.5-5.1) mmol/L Chloride (98-107) mmol/L Carbon Dioxide (21.0-32.0) mmol/L BUN (7.0-18.0) mg/dL Creatinine (0.6-1.0) mg/dL Est Cr Clr Drug Dosing Estimated GFR (MDRD) ml/min Glucose (74-106) mg/dL Calcium (8.5-10.1) mg/dL Total Bilirubin (0.2-1.0) mg/dL AST (15-37) IU/L ALT (14-63) IU/L Alkaline Phosphatase (46-116) U/L Troponin I (0.000-0.056) ng/mL B-Natriuretic Peptide (<100) PG/ML Total Protein (6.4-8.2) g/dL Albumin (3.4-5.0) g/dL Globulin (2.6-4.0) g/dL Albumin/Globulin Ratio (0.9-1.6) SARS-CoV-2 RNA ([place]) NEGATIVE (NEGATIVE) 07/16/20 07/16/20 Range/Units 00:00 00:00 WBC (4.0-11.0) K/uL RBC (4.30-5.90) M/uL Hgb (12.0-16.0) g/dL Hct (36.0-46.0) % MCV (80.0-98.0) fL MCH (27.0-32.0) pg MCHC (31.0-37.0) g/dL RDW Std Deviation (28.0-62.0) fl RDW Coeff of [place] (11.0-15.0) % Plt Count (150-400) K/uL MPV (7.40-12.00) fL Neut % (Auto) (48.0-80.0) % Lymph % (Auto) (16.0-40.0) % [place] % (Auto) (0.0-15.0) % Eos % (Auto) (0.0-7.0) % Baso % (Auto) (0.0-1.5) % Neut # (Auto) (1.4-5.7) K/uL Lymph # (Auto) (0.6-2.4) K/uL [place] # (Auto) (0.0-0.8) K/uL Eos # (Auto) (0.0-0.7) K/uL Baso # (Auto) (0.0-0.1) K/uL Nucleated RBC % /100WBC Nucleated RBCs # K/uL INR APTT (18.6-31.3) SEC Sodium 133 L (136-145) mmol/L Potassium 3.9 (3.5-5.1) mmol/L Chloride 98 (98-107) mmol/L Carbon Dioxide 25.4 (21.0-32.0) mmol/L BUN 21 H (7.0-18.0) mg/dL Creatinine 1.3 H (0.6-1.0) mg/dL Est Cr Clr Drug Dosing TNP Estimated GFR (MDRD) 40.0 ml/min Glucose 294 H (74-106) mg/dL Calcium 9.3 (8.5-10.1) mg/dL Total Bilirubin 0.3 (0.2-1.0) mg/dL AST 17 (15-37) IU/L ALT 20 (14-63) IU/L Alkaline Phosphatase 76 (46-116) U/L Troponin I < 0.050 (0.000-0.056) ng/mL B-Natriuretic Peptide 58 (<100) PG/ML Total Protein 7.3 (6.4-8.2) g/dL Albumin 3.4 (3.4-5.0) g/dL Globulin 3.9 (2.6-4.0) g/dL Albumin/Globulin Ratio 0.9 (0.9-1.6) SARS-CoV-2 RNA ([place]) (NEGATIVE) Meds: Medications Discontinued Medications Generic Name Dose Route Start Last Admin Trade Name Freq PRN Reason Stop Dose Admin Acetaminophen 650 mg 07/16/20 02:28 07/16/20 03:07 Tylenol PO 650 mg Q6H PRN Administration Pain Allopurinol 100 mg 07/16/20 09:00 07/16/20 09:21 Zyloprim PO Not Given DAILY [facility] Aspirin 324 mg 07/16/20 00:01 07/16/20 00:20 Aspirin PO 07/16/20 00:02 162 mg ONETIME ONE Administration Aspirin 81 mg 07/16/20 09:00 07/16/20 10:43 Aspirin PO 81 mg DAILY RODRIGO Administration Carvedilol 25 mg 07/16/20 09:00 07/16/20 09:27 Coreg PO 25 mg BID RODRIGO Administration Dextrose/Water 50 ml 07/16/20 02:25 Dextrose 50% In Water IV ASDIRECTED PRN Hypoglycemia Docusate Sodium 100 mg 07/16/20 08:28 Colace PO BID PRN Constipation Famotidine 40 mg 07/16/20 09:00 07/16/20 09:23 Pepcid PO 40 mg DAILY RODRIGO Administration Furosemide 80 mg 07/16/20 09:00 07/16/20 09:27 Lasix PO 80 mg BID RODRIGO Administration Glucagon 1 mg 07/16/20 02:25 Glucagen IM ASDIRECTED PRN Hypoglycemia Hydrochlorothiazide 25 mg 07/16/20 02:24 07/16/20 03:07 Hydrochlorothiazide PO 07/16/20 02:25 25 mg ONETIME ONE Administration Insulin Aspart 0 unit 07/16/20 07:30 07/16/20 13:16 Novolog SUBCUT Not Given TIDAC [facility] Protocol Isosorbide Mononitrate 30 mg 07/16/20 09:00 07/16/20 09:27 Imdur PO 30 mg DAILY RODRIGO Administration Morphine Sulfate 2 mg 07/16/20 02:29 Morphine IVPUSH Q4H PRN Pain Nitroglycerin 0.4 mg 07/16/20 00:03 07/16/20 00:11 Nitrostat SL 0.4 mg Q5M PRN Administration Chest Pain Nitroglycerin Confirm 07/16/20 00:06 07/16/20 00:14 Nitrostat Administered 07/16/20 00:07 Not Given Dose 0.4 mg .ROUTE .STK-MED ONE Ondansetron HCl 4 mg 07/16/20 00:01 07/16/20 00:12 Zofran IVPUSH 07/16/20 00:02 Not Given ONETIME ONE Ondansetron HCl 4 mg 07/16/20 08:28 Zofran IVPUSH Q4H PRN Nausea Rosuvastatin Calcium 10 mg 07/16/20 21:00 Crestor PO BEDTIME RODRIGO Sodium Chloride 10 ml 07/16/20 00:01 Saline Flush FLUSH ASDIRECTED PRN Keep Vein Open Sodium Chloride 2.5 ml 07/16/20 00:01 Saline Flush FLUSH ASDIRECTED PRN Keep Vein Open Sodium Chloride 2.5 ml 07/16/20 08:28 Saline Flush FLUSH ASDIRECTED PRN Keep Vein Open Spironolactone 25 mg 07/16/20 09:00 07/16/20 09:27 Aldactone PO 25 mg DAILY RODRIGO Administration Tramadol HCl 50 mg 07/16/20 08:33 07/16/20 09:55 Ultram PO 50 mg TID PRN Administration Pain Departure - Departure Time of Disposition: 11:00 Disposition: Refer to Observation Condition: Good Clinical Impression: Acute coronary syndrome - Discharge Information Sepsis Event Note (ED) - Evaluation Sepsis Screening Result: No Definite Risk
[2020-07-16 00:24] LABS: BLOOD UREA NITROGEN,BUN 21 mg/dL (7.0-18.0); CARBON DIOXIDE,CO2 25.4 mmol/L (21.0-32.0); CHLORIDE,CL 98 mmol/L (98-107); GLUCOSE RANDOM 294 mg/dL (74-106); POTASSIUM,K 3.9 mmol/L (3.5-5.1); SODIUM,NA 133 mmol/L (136-145)
--- NOTE | 2020-07-16 00:29 | CR ---
Indication: Chest pain Technique: Chest 1 view Comparison: None Findings/Impression: Cardiovascular and mediastinum: Heart size and vasculature are normal in caliber and appearance. Mediastinum is within normal limits. Lungs and pleural space: Lungs are clear. No sign of infiltrate or mass. No sign of pleural effusion. No pneumothorax. Bones and soft tissues: No significant findings. Dictated by Alysha Kim MD @ Jul 16 2020 12:29AM Signed by Dr. Alysha Kim @ Jul 16 2020 12:29AM
[2020-07-16] MEDS ORDERED: Hydrochlorothiazide 25 MG Tab PO ONE (02:24)
[2020-07-16] MEDS ORDERED: Glucagon,Human Recombinant 1 MG Vial IM PRN (02:25)
[2020-07-16] MEDS ORDERED: 50% Dextrose in Water 50 ML Syringe IV PRN (02:25)
[2020-07-16] MEDS ORDERED: Acetaminophen 325 MG Tab PO PRN (02:28)
[2020-07-16] MEDS ORDERED: Morphine 2 MG/ML SYRINGE IVPUSH PRN (02:29)
--- NOTE | 2020-07-16 08:27 | PCM.HP.2 ---
H&P History of Present Illness - General Date of Service: 07/16/20 Admit Problem/Dx: Admission Diagnosis/Problem Admission Diagnosis/Problem Acute coronary syndrome Source of Information: Patient History Limitations: Reports: No Limitations - History of Present Illness Initial Comments - Free Text/Narative: This 74-year-old female with past medical history of CAD, HTN, COPD, CHF, DM type II, lung cancer with left upper and right upper lobe lobectomies, presented to the ER with left-sided chest pain with associated nausea and shortness of breath. She reports she was sitting on the couch and pain suddenly started in epigastrium and moved upwards towards her neck and throat. She reports it also radiated to her left bicep. She felt nauseated and short of breath and felt that it was worse with exertion when she tried to wash her hair. She reports that the pain improved slightly with nitro x2 ambulance also gave her aspirin on arrival. She reports she has been feeling fine recently no fevers chills or chest pain. No shortness of breath. No focal neurological deficits. She denies any overexertion. Denies any falls recently. She reports that she had Lexiscan a couple years ago, and found no issues. She has never had an angiogram and has no stenting. She feels as though she wants to just medically manage everything and is not eager to have further evaluation. Today the pain is improved. Continues to have reproducible pain to the left upper chest. She reports that after the chest x-ray she did belch a couple times and the pain subsided after that. She denies any alcohol use no tobacco use and no recreational drug use. In the ER leukocytosis noted at 11,500, BMP stable sodium is 133 BUN 21 creatinine 1.3 blood sugars elevated to 94. Troponins x2 - chest x-ray negative with no acute cardiopulmonary process. EKG sinus rhythm with no ST elevation or T wave changes. She was admitted for observation for chest pain rule out ACS. PCP Dr. Sher chest area Pain Score (Numeric/FACES): 3 - Related Data Allergies/Adverse Reactions: Allergies Allergy/AdvReac Type Severity Reaction Status Date / Time GIGI Inhibitors Allergy Nausea Verified 07/16/20 02:09 amlodipine besylate Allergy Nausea Verified 07/16/20 02:09 [From Lotrel] benazepril HCl [From Lotrel] Allergy Nausea Verified 07/16/20 02:09 cephalexin [Cephalexin] Allergy Nausea Verified 07/16/20 02:09 ibuprofen [From Advil] Allergy Nausea Verified 07/16/20 02:09 levofloxacin [From Levaquin] Allergy Nausea Verified 07/16/20 02:09 metformin Allergy Nausea Verified 07/16/20 02:09 Penicillins Allergy Nausea Verified 07/16/20 02:09 promethazine Allergy Hallucinati Verified 07/16/20 02:09 ons Home Medications: Home Meds Rosuvastatin Calcium [Crestor] 10 mg PO BEDTIME 04/12/16 [History] Famotidine 40 mg PO DAILY 30 Days #30 tablet 03/18/18 [Rx] Allopurinol [Zyloprim] 100 mg PO DAILY 07/16/20 [History] Aspirin 81 mg PO DAILY 07/16/20 [History] Cholecalciferol (Vitamin D3) [Vitamin D3] 2,000 unit PO DAILY 07/16/20 [History] Darifenacin Hydrobromide [Darifenacin ER] 7.5 mg PO DAILY 07/16/20 [History] Doxazosin Mesylate [Cardura] 4 mg PO DAILY 07/16/20 [History] FA/Lycopene/Lut/MV,Ca,Iron,Min [Centrum] 1 tab PO DAILY 07/16/20 [History] Furosemide [Lasix] 80 mg PO BID 07/16/20 [History] Insulin Aspart [NovoLOG] 1 injection SQ ASDIRECTED 07/16/20 [History] Insulin Detemir [Levemir Flextouch] 58 units SQ DAILY 07/16/20 [History] Isosorbide Mononitrate [Imdur] 30 mg PO DAILY 07/16/20 [History] Loratadine [Claritin] 10 mg PO DAILY PRN 07/16/20 [History] Montelukast Sodium [Singulair] 10 mg PO BEDTIME 07/16/20 [History] Potassium Chloride 20 meq PO DAILY 07/16/20 [History] Spironolactone [Aldactone] 25 mg PO DAILY 07/16/20 [History] Turmeric Root Extract [Turmeric] 1 gm PO DAILY 07/16/20 [History] carvediloL [Carvedilol] 25 mg PO BID 07/16/20 [History] rOPINIRole [Requip] 0.5 mg PO BEDTIME 07/16/20 [History] traMADol [Ultram] 50 mg PO TID PRN 07/16/20 [History] Past Medical History HEENT History: Reports: None Cardiovascular History: Reports: Hypertension, HI Other Cardiovascular History: Heart Attack Respiratory History: Reports: Asthma, Interstitial Lung Disease Gastrointestinal History: Reports: None Genitourinary History: Reports: None LPN PER DIEM History: Reports: None Musculoskeletal History: Reports: Arthritis, Back Pain, Chronic, Other (See Below) Other Musculoskeletal History: chronic knee pain Neurological History: Reports: Neuropathy, Diabetic, Other (See Below) Other Neuro History: restless legs Psychiatric History: Reports: None Endocrine/Metabolic History: Reports: Diabetes, Type II, Other (See Below) Other Endocrine/Metabolic History: chronic steriod use Insulin Pump Model and Rn Birthing: None Hematologic History: Reports: None Immunologic History: Reports: None Oncologic (Cancer) History: Reports: Lung Dermatologic History: Reports: None - Infectious Disease History Infectious Disease History: Reports: Chicken Pox - Past Surgical History Head Surgeries/Procedures: Reports: None HEENT Surgical History: Reports: None Cardiovascular Surgical History: Reports: None Respiratory Surgical History: Reports: Lung Biopsies GI Surgical History: Reports: Appendectomy, Cholecystectomy Female Surgical History: Reports: Hysterectomy Endocrine Surgical History: Reports: None Neurological Surgical History: Reports: None Musculoskeletal Surgical History: Reports: None Oncologic Surgical History: Reports: None Dermatological Surgical History: Reports: None Social & Family History - Family History Family Medical History: No Pertinent Family History - Tobacco Use Tobacco Use Status *Q: Former Tobacco User Used Tobacco, but Quit: Yes Month/Year Tobacco Last Used: 1995 Second Hand Smoke Exposure: No - Caffeine Use Caffeine Use: Reports: Soda - Recreational Drug Use Recreational Drug Use: No H&P Review of Systems - Review of Systems: Review Of Systems: See Below General: Reports: No Symptoms. Denies: Fever, Chills, Malaise, Weakness, Fatigue HEENT: Reports: No Symptoms. Denies: Headaches, Sinus Congestion, Sore Throat, Vertigo Pulmonary: Reports: No Symptoms. Denies: Shortness of Breath Cardiovascular: Reports: Chest Pain (Reproducible to left upper chest), Edema (Baseline and stable survey of bilateral lower extremities). Denies: Dyspnea on Exertion Gastrointestinal: Reports: No Symptoms. Denies: Abdominal Pain, Black Stool, Bloody Stool, Constipation, Diarrhea, Nausea, Vomiting Genitourinary: Reports: No Symptoms. Denies: Dysuria, Frequency, Burning Skin: Reports: No Symptoms Psychiatric: Reports: No Symptoms Neurological: Reports: No Symptoms. Denies: Confusion, Dizziness, Difficulty Walking Hematologic/Lymphatic: Reports: No Symptoms Immunologic: Reports: No Symptoms Exam - Exam Exam: See Below - Vital Signs Vital Signs: Last Vital Signs Temp 97.3 F 07/16/20 04:00 Pulse 60 07/16/20 04:00 Resp 16 07/16/20 04:00 BP 162/52 H 07/16/20 04:00 Pulse Ox 96 07/16/20 04:00 Weight: 122.5 kg - Exam Quality Assessment: DVT Prophylaxis. No: Supplemental Oxygen General: Alert, Oriented, Cooperative HEENT: Conjunctiva Clear, Mucosa Moist & [place], Posterior Pharynx Clear Lungs: Clear to Auscultation, Normal Respiratory Effort Cardiovascular: Regular Rate, Regular Rhythm GI/Abdominal Exam: Normal Bowel Sounds, Soft, Non-Tender Back Exam: Normal Inspection, Full Range of Motion Extremities: Normal Inspection, Normal Range of Motion, Non-Tender, Pedal Edema (+1 pitting edema bilaterally patient reports this is baseline.) Neuro Extensive - Mental Status: Alert, Oriented x3, Normal Mood/Affect, Normal Cognition Neuro Extensive - Motor, Sensory, Reflexes: CN II-XII Intact Psychiatric: Alert, Normal Affect, Normal Mood - Patient Data Lab Results Last 24 hrs: Laboratory Results - last 24 hr 07/16/20 07/16/20 07/16/20 Range/Units 00:00 00:00 00:00 WBC 11.54 H (4.0-11.0) K/uL RBC 4.48 (4.30-5.90) M/uL Hgb 14.8 (12.0-16.0) g/dL Hct 45.1 (36.0-46.0) % MCV 100.7 H (80.0-98.0) fL MCH 33.0 H (27.0-32.0) pg MCHC 32.8 (31.0-37.0) g/dL RDW Std Deviation 53.0 (28.0-62.0) fl RDW Coeff of Donovan 15 (11.0-15.0) % Plt Count 253 (150-400) K/uL MPV 10.60 (7.40-12.00) fL Neut % (Auto) 67.4 (48.0-80.0) % Lymph % (Auto) 18.6 (16.0-40.0) % [place] % (Auto) 10.6 (0.0-15.0) % Eos % (Auto) 3.1 (0.0-7.0) % Baso % (Auto) 0.3 (0.0-1.5) % Neut # (Auto) 7.8 H (1.4-5.7) K/uL Lymph # (Auto) 2.2 (0.6-2.4) K/uL [place] # (Auto) 1.2 H (0.0-0.8) K/uL Eos # (Auto) 0.4 (0.0-0.7) K/uL Baso # (Auto) 0.0 (0.0-0.1) K/uL Nucleated RBC % 0.0 /100WBC Nucleated RBCs # 0 K/uL INR 1.08 APTT 24.7 (18.6-31.3) SEC Sodium (136-145) mmol/L Potassium (3.5-5.1) mmol/L Chloride (98-107) mmol/L Carbon Dioxide (21.0-32.0) mmol/L BUN (7.0-18.0) mg/dL Creatinine (0.6-1.0) mg/dL Est Cr Clr Drug Dosing Estimated GFR (MDRD) ml/min Glucose (74-106) mg/dL POC Glucose (60-110) mg/dL Calcium (8.5-10.1) mg/dL Total Bilirubin (0.2-1.0) mg/dL AST (15-37) IU/L ALT (14-63) IU/L Alkaline Phosphatase (46-116) U/L Troponin I (0.000-0.056) ng/mL B-Natriuretic Peptide (<100) PG/ML Total Protein (6.4-8.2) g/dL Albumin (3.4-5.0) g/dL Globulin (2.6-4.0) g/dL Albumin/Globulin Ratio (0.9-1.6) SARS-CoV-2 RNA ([place]) NEGATIVE (NEGATIVE) 07/16/20 07/16/20 07/16/20 Range/Units 00:00 00:00 04:05 WBC (4.0-11.0) K/uL RBC (4.30-5.90) M/uL Hgb (12.0-16.0) g/dL Hct (36.0-46.0) % MCV (80.0-98.0) fL MCH (27.0-32.0) pg MCHC (31.0-37.0) g/dL RDW Std Deviation (28.0-62.0) fl RDW Coeff of Donovan (11.0-15.0) % Plt Count (150-400) K/uL MPV (7.40-12.00) fL Neut % (Auto) (48.0-80.0) % Lymph % (Auto) (16.0-40.0) % [place] % (Auto) (0.0-15.0) % Eos % (Auto) (0.0-7.0) % Baso % (Auto) (0.0-1.5) % Neut # (Auto) (1.4-5.7) K/uL Lymph # (Auto) (0.6-2.4) K/uL [place] # (Auto) (0.0-0.8) K/uL Eos # (Auto) (0.0-0.7) K/uL Baso # (Auto) (0.0-0.1) K/uL Nucleated RBC % /100WBC Nucleated RBCs # K/uL INR APTT (18.6-31.3) SEC Sodium 133 L (136-145) mmol/L Potassium 3.9 (3.5-5.1) mmol/L Chloride 98 (98-107) mmol/L Carbon Dioxide 25.4 (21.0-32.0) mmol/L BUN 21 H (7.0-18.0) mg/dL Creatinine 1.3 H (0.6-1.0) mg/dL Est Cr Clr Drug Dosing TNP Estimated GFR (MDRD) 40.0 ml/min Glucose 294 H (74-106) mg/dL POC Glucose (60-110) mg/dL Calcium 9.3 (8.5-10.1) mg/dL Total Bilirubin 0.3 (0.2-1.0) mg/dL AST 17 (15-37) IU/L ALT 20 (14-63) IU/L Alkaline Phosphatase 76 (46-116) U/L Troponin I < 0.050 < 0.050 (0.000-0.056) ng/mL B-Natriuretic Peptide 58 (<100) PG/ML Total Protein 7.3 (6.4-8.2) g/dL Albumin 3.4 (3.4-5.0) g/dL Globulin 3.9 (2.6-4.0) g/dL Albumin/Globulin Ratio 0.9 (0.9-1.6) SARS-CoV-2 RNA ([place]) (NEGATIVE) 07/16/20 Range/Units 06:42 WBC (4.0-11.0) K/uL RBC (4.30-5.90) M/uL Hgb (12.0-16.0) g/dL Hct (36.0-46.0) % MCV (80.0-98.0) fL MCH (27.0-32.0) pg MCHC (31.0-37.0) g/dL RDW Std Deviation (28.0-62.0) fl RDW Coeff of Donovan (11.0-15.0) % Plt Count (150-400) K/uL MPV (7.40-12.00) fL Neut % (Auto) (48.0-80.0) % Lymph % (Auto) (16.0-40.0) % [place] % (Auto) (0.0-15.0) % Eos % (Auto) (0.0-7.0) % Baso % (Auto) (0.0-1.5) % Neut # (Auto) (1.4-5.7) K/uL Lymph # (Auto) (0.6-2.4) K/uL [place] # (Auto) (0.0-0.8) K/uL Eos # (Auto) (0.0-0.7) K/uL Baso # (Auto) (0.0-0.1) K/uL Nucleated RBC % /100WBC Nucleated RBCs # K/uL INR APTT (18.6-31.3) SEC Sodium (136-145) mmol/L Potassium (3.5-5.1) mmol/L Chloride (98-107) mmol/L Carbon Dioxide (21.0-32.0) mmol/L BUN (7.0-18.0) mg/dL Creatinine (0.6-1.0) mg/dL Est Cr Clr Drug Dosing Estimated GFR (MDRD) ml/min Glucose (74-106) mg/dL POC Glucose 170 H (60-110) mg/dL Calcium (8.5-10.1) mg/dL Total Bilirubin (0.2-1.0) mg/dL AST (15-37) IU/L ALT (14-63) IU/L Alkaline Phosphatase (46-116) U/L Troponin I (0.000-0.056) ng/mL B-Natriuretic Peptide (<100) PG/ML Total Protein (6.4-8.2) g/dL Albumin (3.4-5.0) g/dL Globulin (2.6-4.0) g/dL Albumin/Globulin Ratio (0.9-1.6) SARS-CoV-2 RNA ([place]) (NEGATIVE) Result Diagrams: 07/16/20 00:00 07/16/20 00:00 Sepsis Event Note - Evaluation Sepsis Screening Result: No Definite Risk - Focused Exam Vital Signs: Vital Signs Temp Pulse Resp BP BP Pulse Ox 07/16/20 04:00 97.3 F 60 16 162/52 H 96 07/16/20 02:00 97.5 F 65 18 193/79 H 95 07/16/20 01:29 97.5 F 70 18 130/50 L 97 07/16/20 00:27 69 18 107/57 L 98 07/16/20 00:23 74 18 147/39 H 98 07/16/20 00:11 181/52 H 07/15/20 23:45 97.1 F 75 18 173/57 H 98 - Problem List (1) Atypical chest pain SNOMED Code(s): 729020141 ICD Code: R07.89 - OTHER CHEST PAIN Status: Acute Current Visit: No (2) CAD (coronary artery disease) SNOMED Code(s): 66695333 ICD Code: I25.10 - ATHSCL HEART DISEASE OF [place] CORONARY ARTERY W/O ANG PCTRS Status: Chronic Current Visit: Yes Qualifiers: Coronary Disease-Associated Artery/Lesion type: [place] artery [place] vs. transplanted heart: [place] heart (3) Lung cancer SNOMED Code(s): 797939454 ICD Code: C34.90 - MALIGNANT NEOPLASM OF UNSP PART OF UNSP BRONCHUS OR LUNG Status: Chronic Current Visit: Yes Qualifiers: Laterality: right Lung location: upper lobe of lung Qualified Code(s): C34.11 - Malignant neoplasm of upper lobe, right bronchus or lung (4) History of lobectomy of lung SNOMED Code(s): 61106432687673558 ICD Code: Z90.2 - ACQUIRED ABSENCE OF LUNG [PART OF] Status: Chronic Current Visit: Yes (5) Hypertension SNOMED Code(s): 44242032 ICD Code: I10 - ESSENTIAL (PRIMARY) HYPERTENSION Status: Chronic Current Visit: No Qualifiers: Hypertension type: essential hypertension Qualified Code(s): I10 - Essential (primary) hypertension (6) COPD (chronic obstructive pulmonary disease) SNOMED Code(s): 01284081 ICD Code: J44.9 - CHRONIC OBSTRUCTIVE PULMONARY DISEASE, UNSPECIFIED Status: Chronic Priority: High Current Visit: No Qualifiers: COPD type: unspecified COPD Qualified Code(s): J44.9 - Chronic obstructive pulmonary disease, unspecified (7) Diabetes mellitus SNOMED Code(s): 42385226 ICD Code: E11.9 - TYPE 2 DIABETES MELLITUS WITHOUT COMPLICATIONS Status: Chronic Priority: Medium Current Visit: No Qualifiers: Diabetes mellitus type: type 2 Diabetes mellitus shelter insulin use: unspecified shelter insulin use status Diabetes mellitus complication status: with circulatory complication Diabetes mellitus complication detail: with other circulatory complications Qualified Code(s): E11.59 - Type 2 diabetes mellitus with other circulatory complications (8) Interstitial pulmonary disease SNOMED Code(s): 811202815 ICD Code: J84.9 - INTERSTITIAL PULMONARY DISEASE, UNSPECIFIED Status: Chronic Priority: High Current Visit: No Problem List Initiated/Reviewed/Updated: Yes Orders Last 24hrs: Active Orders 24 hr Category Date Time Status Patient Status [ADT] Routine ADT 07/16/20 01:14 Active Blood Glucose Check, Bedside [RC] TIDAC Care 07/16/20 07:27 Active Cardiac Monitoring [RC] . DIRECTED Care 07/16/20 00:01 Active EKG Documentation Completion [RC] AM Care 07/16/20 00:01 Active Telemetry Monitoring [Cardiac Monitoring] [RC] Q8H Care 07/16/20 01:45 Active Vital Signs [RC] Q4H Care 07/16/20 04:00 Active ADA Diabetic [[place] [employer] Diet] [DIET Diet 07/16/20 Dinner Active ] TROPONIN I [CHEM] Routine Lab 07/16/20 08:00 Ordered Acetaminophen [TylenoL] Med 07/16/20 02:28 Active 650 mg PO Q6H PRN Dextrose 50% in Water Med 07/16/20 02:25 Active 50 ml IV ASDIRECTED PRN Glucagon,Human Recombinant [GlucaGen] Med 07/16/20 02:25 Active 1 mg IM ASDIRECTED PRN Insulin Aspart [NovoLOG] Med 07/16/20 07:30 Active See Protocol SUBCUT TIDAC Morphine Med 07/16/20 02:29 Active 2 mg IVPUSH Q4H PRN Nitroglycerin [Nitrostat] Med 07/16/20 00:03 Active 0.4 mg SL Q5M PRN Sodium Chloride 0.9% [Saline Flush] Med 07/16/20 00:01 Active 10 ml FLUSH ASDIRECTED PRN Sodium Chloride 0.9% [Saline Flush] Med 07/16/20 00:01 Active 2.5 ml FLUSH ASDIRECTED PRN Saline Lock Insert [OM.PC] Stat Oth 07/16/20 00:01 Ordered Medication Orders Acetaminophen (Tylenol) 650 mg PO Q6H PRN PRN Reason: Pain Last Admin: 07/16/20 03:07 Dose: 650 mg Documented by: RADHA Dextrose/Water (Dextrose 50% In Water) 50 ml IV ASDIRECTED PRN PRN Reason: Hypoglycemia Glucagon (Glucagen) 1 mg IM ASDIRECTED PRN PRN Reason: Hypoglycemia Insulin Aspart (Novolog) 0 unit SUBCUT TIDAC RODRIGO; Protocol Morphine Sulfate (Morphine) 2 mg IVPUSH Q4H PRN PRN Reason: Pain Nitroglycerin (Nitrostat) 0.4 mg SL Q5M PRN PRN Reason: Chest Pain Last Admin: 07/16/20 00:11 Dose: 0.4 mg Documented by: SALENA Sodium Chloride (Saline Flush) 10 ml FLUSH ASDIRECTED PRN PRN Reason: Keep Vein Open Sodium Chloride (Saline Flush) 2.5 ml FLUSH ASDIRECTED PRN PRN Reason: Keep Vein Open Assessment/Plan Comment:: This 74-year-old female was admitted for chest pain, atypical, rule out ACS 1. Atypical chest pain rule out ACS -Troponins x3 remain negative. -Chest pain is no longer present has some mild reproducible pain in the left upper chest. -Did discuss repeat Lexiscan with Dr. Francis. She would want to discuss this with him in person and does not want to have this otherwise she would prefer medical management. -Continue home medications of Imdur Coreg, nitroglycerin spironolactone and doxazosin along with Lasix with no dose changes Discharge plan: Troponins x3 remain negative. Chest pain-free. She will be discharged home today with no changes to home medications. She is declining Lexiscan at this time and would like to talk to Dr. Juarez regarding this in the future. She was counseled on using nitroglycerin if chest pain were to recur and if chest pain does not resolve to return to the ER promptly for evaluation. She is to continue aspirin as well as statin. She will be discharged home today follow-up with Dr. Juarez along with PCP. - Mortality Measure Prognosis:: Good
[2020-07-16] MEDS ORDERED: Docusate Sodium 100 MG Cap PO PRN (08:28)
[2020-07-16] MEDS ORDERED: Ondansetron 4 MG/2 ML SDV IVPUSH PRN (08:28)
[2020-07-16] MEDS ORDERED: traMADol 50 MG Tab PO PRN (08:33)
[2020-07-16 08:58] LABS: HEMOGLOBIN A1C 6.3 %
[2020-07-16] MEDS ORDERED: Spironolactone 25 MG Tab PO SCH (09:00)
[2020-07-16] MEDS ORDERED: Allopurinol 100 MG Tab PO SCH (09:00)
[2020-07-16] MEDS ORDERED: Famotidine 20 MG Tab PO SCH (09:00)
[2020-07-16] MEDS ORDERED: Isosorbide Mononitrate 30 MG Tab.ER PO SCH (09:00)
[2020-07-16] MEDS ORDERED: Carvedilol 25 MG Tab PO SCH (09:00)
[2020-07-16] MEDS ORDERED: Furosemide 80 MG Tab PO SCH (09:00)
[2020-07-16] MEDS ORDERED: Aspirin 81 MG Tab.Chew PO SCH (09:00)
[2020-07-16] MEDS: Insulin Aspart 100 Units/ML 3 ML Pen SUBCUT SCH ×2 (09:18→13:16)
[2020-07-16 11:07] VITALS: BP 157/59; PULSE 59
[2020-07-16] MEDS ORDERED: Rosuvastatin 10 MG Tab PO SCH (21:00)
== END 2020-07-16 13:23 | disposition home or self-care (01) ==
LOC: MW.ED 23:45 → MW.MS 07-16 01:14
PROVIDERS: ADMIT Internal Medicine; ATTEND Internal Medicine
DX: R07.89 Other chest pain (principal); I25.10 Atherosclerotic heart disease of native coronary artery without angina pectoris; I11.0 Hypertensive heart disease with heart failure; J44.9 Chronic obstructive pulmonary disease, unspecified; I25.2 Old myocardial infarction; Z87.891 Personal history of nicotine dependence; Z90.2 Acquired absence of lung [part of]; Z20.822 Contact with and (suspected) exposure to COVID-19; Z88.8 Allergy status to other drugs, medicaments and biological substances; Z88.0 Allergy status to penicillin; Z88.1 Allergy status to other antibiotic agents; Z79.899 Other long term (current) drug therapy; Z79.82 Long term (current) use of aspirin; Z79.4 Long term (current) use of insulin
CPT/HCPCS: 36415; 71045; 80053; 80061; 82962; 83036; 83880; 84443; 84484; 85025; 85610; 85730; 93005; 99285; A9270; G0378; U0002; 93010; 99284

== ENCOUNTER 2021-07-01 18:35 | Emergency (ER) | payer MEDICARE, BC ==
--- NOTE | 2021-07-01 18:53 | PCM.EKG ---
#1 Interpretation EKG Date: 07/01/21 Time: 18:42 Rhythm: NSR Rate (Beats/Min): 69 Electra: Normal P-Wave: Present QRS: Normal ST-T: Normal QT: Normal Comparison: No Change (07/15/20) EKG Interpretation Comments: Sinus Rhythm
[2021-07-01] MEDS ORDERED: Sodium Chloride 0.9% 2.5 ML Syringe FLUSH PRN (18:57)
--- NOTE | 2021-07-01 19:17 | EDM.PDOC ---
ED HPI GENERAL MEDICAL PROBLEM - General Chief Complaint: Cardiovascular Problem Stated Complaint: CHEST PRESSURE Time Seen by Provider: 07/01/21 19:13 - History of Present Illness INITIAL COMMENTS - FREE TEXT/NARRATIVE: History of present illness: []Patient reports she started having pressure in chest 11 pm last night. worse constant pressure in anterior chest since 5 pm tonight. Similar to pressure she associates with coronary vessel spasm described to her by cardiology in the past. Pressure is mild but has intermittent very brief sharp chest pains. She had diaphoresis only last night, has a little shortness of breath. She has her usual customary and frequent nausea and light headedness she associates with chronic reaction to her medication. She does not smoke. Review of systems: As per history of present illness and below otherwise all systems reviewed and negative. Past medical history: As per history of present illness and as reviewed below otherwise noncontributory. Surgical history: As per history of present illness and as reviewed below otherwise noncontributory. Social history: No reported history of drug or alcohol abuse. Family history: As per history of present illness and as reviewed below otherwise noncontributory. Physical exam: Constitutional - well developed, well-nourished and in no acute distress HEENT - normocephalic, no evidence of trauma - external nose and mouth normal - no mass in neck and no JVD - mucosae moist EYES - full EOM, PERRL, no icterus - no evidence of inflammation, injection, or drainage Respiratory - no respiratory distress, equal bilateral expansion, lungs clear to auscultation and no abnormal lung sounds Cardiovascular - Regular Rhythm with S1 and S2 appreciated and no murmur, gallop or rub. GI - abdomen soft without distension or organomegaly - normal bowel sounds - no guard or rebound Musculoskeletal no gross deformity of long bones or joints - no tenderness, swelling or edema Neurologic - Alert and oriented times four - CN II-XII grossly intact - motor sensory and coordination symmetrically normal Psychiatric - appropriate mood and affect with normal thought content Hematologic - No petechiae or purpura - mucosa appropriate color and sclera not pale - normal nail bed color and refill Integument - no rash or evidence of trauma - normal turgor Diagnostics: [] Therapeutics: [] Impression: [] Chest Pain Score (Numeric/FACES): 7 - Related Data Allergies Allergy/AdvReac Type Severity Reaction Status Date / Time GIGI Inhibitors Allergy Nausea Verified 07/01/21 18:44 amlodipine besylate Allergy Nausea Verified 07/01/21 18:44 [From Lotrel] benazepril HCl [From Lotrel] Allergy Nausea Verified 07/01/21 18:44 cephalexin [Cephalexin] Allergy Nausea Verified 07/01/21 18:44 ibuprofen [From Advil] Allergy Nausea Verified 07/01/21 18:44 levofloxacin [From Levaquin] Allergy Nausea Verified 07/01/21 18:44 metformin Allergy Nausea Verified 07/01/21 18:44 Penicillins Allergy Nausea Verified 07/01/21 18:44 promethazine Allergy Hallucinati Verified 07/01/21 18:44 ons Home Meds: Home Meds Rosuvastatin Calcium [Crestor] 10 mg PO BEDTIME 04/12/16 [History] Famotidine 40 mg PO DAILY 30 Days #30 tablet 03/18/18 [Rx] Aspirin 81 mg PO DAILY 07/16/20 [History] Cholecalciferol (Vitamin D3) [Vitamin D3] 2,000 unit PO DAILY 07/16/20 [History] Darifenacin Hydrobromide [Darifenacin ER] 7.5 mg PO DAILY 07/16/20 [History] Doxazosin Mesylate [Cardura] 4 mg PO DAILY 07/16/20 [History] FA/Lycopene/Lut/MV,Ca,Iron,Min [Centrum] 1 tab PO DAILY 07/16/20 [History] Furosemide [Lasix] 80 mg PO BID 07/16/20 [History] Insulin Aspart [NovoLOG] 1 injection SQ ASDIRECTED 07/16/20 [History] Insulin Detemir [Levemir Flextouch] 58 units SQ DAILY 07/16/20 [History] Isosorbide Mononitrate [Imdur] 30 mg PO DAILY 07/16/20 [History] Loratadine [Claritin] 10 mg PO DAILY PRN 07/16/20 [History] Montelukast Sodium [Singulair] 10 mg PO BEDTIME 07/16/20 [History] Potassium Chloride 20 meq PO DAILY 07/16/20 [History] Spironolactone [Aldactone] 25 mg PO DAILY 07/16/20 [History] Turmeric Root Extract [Turmeric] 1 gm PO DAILY 07/16/20 [History] allopurinoL [Zyloprim] 100 mg PO DAILY 07/16/20 [History] carvediloL [Carvedilol] 25 mg PO BID 07/16/20 [History] rOPINIRole [Requip] 0.5 mg PO BEDTIME 07/16/20 [History] traMADol [Ultram] 50 mg PO TID PRN 07/16/20 [History] Past Medical History HEENT History: Reports: None Cardiovascular History: Reports: Hypertension, [place] Other Cardiovascular History: Heart Attack Respiratory History: Reports: Asthma, Interstitial Lung Disease Gastrointestinal History: Reports: None Genitourinary History: Reports: None [employer] History: Reports: None Musculoskeletal History: Reports: Arthritis, Back Pain, Chronic, Other (See Below) Other Musculoskeletal History: chronic knee pain Neurological History: Reports: Neuropathy, Diabetic, Other (See Below) Other Neuro History: restless legs Psychiatric History: Reports: None Endocrine/Metabolic History: Reports: Diabetes, Type II, Other (See Below) Other Endocrine/Metabolic History: chronic steriod use Insulin Pump Model and Shuffle Board Operator: None Hematologic History: Reports: None Immunologic History: Reports: None Oncologic (Cancer) History: Reports: Lung Dermatologic History: Reports: None - Infectious Disease History Infectious Disease History: Reports: Chicken Pox - Past Surgical History Head Surgeries/Procedures: Reports: None HEENT Surgical History: Reports: None Cardiovascular Surgical History: Reports: None Respiratory Surgical History: Reports: Lung Biopsies GI Surgical History: Reports: Appendectomy, Cholecystectomy Female Surgical History: Reports: Hysterectomy Endocrine Surgical History: Reports: None Neurological Surgical History: Reports: None Musculoskeletal Surgical History: Reports: None Oncologic Surgical History: Reports: None Dermatological Surgical History: Reports: None Social & Family History - Family History Family Medical History: No Pertinent Family History - Caffeine Use Caffeine Use: Reports: Soda ED ROS GENERAL - Review of Systems Review Of Systems: Comprehensive ROS is negative, except as noted in HPI. ED EXAM, GENERAL - Physical Exam Exam: See Below Free Text/Narrative:: My physical exam is in the HPI #1 Interpretation EKG Interpretation Comments: I agree with Dr. Ovalle's reading - normal Course - Vital Signs Last Recorded V/S: Last Vital Signs Temp 36.7 C 07/01/21 18:45 Pulse 69 07/01/21 18:45 Resp 16 07/01/21 18:45 BP 196/80 H 07/01/21 18:45 Pulse Ox 97 07/01/21 18:45 - Orders/Labs/Meds Orders: Active Orders 24 hr Category Date Time Status Cardiac Monitoring [RC] . DIRECTED Care 07/01/21 19:15 Active GI Cocktail with Reglan 25 ML PO x 1 Med 07/01/21 20:44 Ordered Alum Delancey/Mag Delancey/Simeth XS [Mag-Al Plus Extra Strength] 15 ml Metoclopramide [Reglan] 5 mg Lidocaine 2% [Xylocaine 2% Viscous] 5 ml PO ONETIME Sodium Chloride 0.9% [Saline Flush] Med 07/01/21 18:57 Active 10 ml FLUSH ASDIRECTED PRN Sodium Chloride 0.9% [Saline Flush] Med 07/01/21 18:57 Active 2.5 ml FLUSH ASDIRECTED PRN Saline Lock Insert [OM.PC] Stat Oth 07/01/21 18:57 Ordered Medication Orders Sodium Chloride (Sodium Chloride 0.9% 10 Ml Syringe) 10 ml FLUSH ASDIRECTED PRN PRN Reason: Keep Vein Open Last Admin: 07/01/21 19:40 Dose: 10 ml Documented by: JULIO CÉSAR Admin: 07/01/21 19:39 Dose: 10 ml Documented by: JULIO CÉSAR Sodium Chloride (Sodium Chloride 0.9% 2.5 Ml Syringe) 2.5 ml FLUSH ASDIRECTED PRN PRN Reason: Keep Vein Open Last Admin: 07/01/21 19:40 Dose: 2.5 ml Documented by: JULIO CÉSAR Labs: Laboratory Tests 07/01/21 07/01/21 Range/Units 19:00 19:00 WBC 10.42 (4.0-11.0) K/uL RBC 4.28 L (4.30-5.90) M/uL Hgb 14.3 (12.0-16.0) g/dL Hct 42.1 (36.0-46.0) % MCV 98.4 H (80.0-98.0) fL MCH 33.4 H (27.0-32.0) pg MCHC 34.0 (31.0-37.0) g/dL RDW Std Deviation 52.3 (28.0-62.0) fl RDW Coeff of Donovan 15 (11.0-15.0) % Plt Count 265 (150-400) K/uL MPV 10.60 (7.40-12.00) fL Neut % (Auto) 68.1 (48.0-80.0) % Lymph % (Auto) 16.2 (16.0-40.0) % Petroleum % (Auto) 12.6 (0.0-15.0) % Eos % (Auto) 2.6 (0.0-7.0) % Baso % (Auto) 0.5 (0.0-1.5) % Neut # (Auto) 7.1 H (1.4-5.7) K/uL Lymph # (Auto) 1.7 (0.6-2.4) K/uL Petroleum # (Auto) 1.3 H (0.0-0.8) K/uL Eos # (Auto) 0.3 (0.0-0.7) K/uL Baso # (Auto) 0.1 (0.0-0.1) K/uL Nucleated RBC % 0.0 /100WBC Nucleated RBCs # 0 K/uL Sodium 139 (136-145) mmol/L Potassium 3.6 (3.5-5.1) mmol/L Chloride 103 (98-107) mmol/L Carbon Dioxide 28.0 (21.0-32.0) mmol/L BUN 19 H (7.0-18.0) mg/dL Creatinine 1.2 H (0.6-1.0) mg/dL Est Cr Clr Drug Dosing TNP Estimated GFR (MDRD) 43.8 ml/min Glucose 125 H (74-106) mg/dL Calcium 8.7 (8.5-10.1) mg/dL Total Bilirubin 0.5 (0.2-1.0) mg/dL AST 20 (15-37) IU/L ALT 18 (14-63) IU/L Alkaline Phosphatase 62 (46-116) U/L Troponin I < 0.050 (0.000-0.056) ng/mL Total Protein 6.9 (6.4-8.2) g/dL Albumin 3.2 L (3.4-5.0) g/dL Globulin 3.7 (2.6-4.0) g/dL Albumin/Globulin Ratio 0.9 (0.9-1.6) Meds: Medications Generic Name Dose Route Start Last Admin Trade Name Freq PRN Reason Stop Dose Admin Sodium Chloride 10 ml 07/01/21 18:57 07/01/21 19:40 Sodium Chloride 0.9% 10 Ml Syringe FLUSH 10 ml ASDIRECTED PRN Administration Keep Vein Open Sodium Chloride 2.5 ml 07/01/21 18:57 07/01/21 19:40 Sodium Chloride 0.9% 2.5 Ml Syringe FLUSH 2.5 ml ASDIRECTED PRN Administration Keep Vein Open Departure - Departure Time of Disposition: 21:00 Disposition: Home, Self-Care 01 Condition: Good Clinical Impression: Chest pain, Palpitations - Discharge Information Instructions: Nonspecific Chest Pain, Adult, Palpitations, [id number] Forms: ED Department Discharge Additional Instructions: Call 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 For now take [id number] famotidine or omeprazole and see if this helps. Don't eat before bedtime. Elevate your head head during your sleep time [facility] - cardiology [address] [place] [address] [facility] - Primary Care [address] [place] [address] [id number] [address] [id number] The following information is given to patients seen in the emergency department who are being discharged to home. This information is to outline your options for follow-up care. We provide all patients seen in our emergency department with a follow-up referral. The need for follow-up, as well as the timing and circumstances, are variable depending upon the specifics of your emergency department visit. If you don't have a primary care physician on staff, we will provide you with a referral. We always advise you to contact your personal physician following an emergency department visit to inform them of the circumstance of the visit and for follow-up with them and/or the need for any referrals to a consulting specialist. The emergency department will also refer you to a specialist when appropriate. This referral assures that you have the opportunity for follow-up care with a specialist. All of these measure are taken in an effort to provide you with optimal care, which includes your follow-up. Under all circumstances we always encourage you to contact your private physician who remains a resource for coordinating your care. When calling for follow-up care, please make the office aware that this follow-up is from your recent emergency room visit. If for any reason you are refused follow-up, please contact the [facility] Emergency Department at and asked to speak to the emergency department charge nurse. Sepsis Event Note (ED) - Evaluation Sepsis Screening Result: No Definite Risk - Focused Exam Vital Signs: Vital Signs Temp Pulse Resp BP Pulse Ox 07/01/21 18:45 36.7 C 69 16 196/80 H 97 - My Orders Last 24 Hours: My Active Orders 07/01/21 19:15 Cardiac Monitoring [RC] . DIRECTED 07/01/21 20:44 GI Cocktail with Reglan 25 ML PO x 1 Alum Delancey/Mag Delancey/Simeth XS [Mag-Al Plus Extra Strength] 15 ml Metoclopramide [Reglan] 5 mg Lidocaine 2% [Xylocaine 2% Viscous] 5 ml PO ONETIME - Assessment/Plan Last 24 Hours: My Active Orders 07/01/21 19:15 Cardiac Monitoring [RC] . DIRECTED 07/01/21 20:44 GI Cocktail with Reglan 25 ML PO x 1 Alum Delancey/Mag Delancey/Simeth XS [Mag-Al Plus Extra Strength] 15 ml Metoclopramide [Reglan] 5 mg Lidocaine 2% [Xylocaine 2% Viscous] 5 ml PO ONETIME
[2021-07-01 19:36] LABS: BLOOD UREA NITROGEN,BUN 19 mg/dL (7.0-18.0); CHLORIDE,CL 103 mmol/L (98-107); GLUCOSE RANDOM 125 mg/dL (74-106); POTASSIUM,K 3.6 mmol/L (3.5-5.1); SODIUM,NA 139 mmol/L (136-145)
[2021-07-01] MEDS: Sodium Chloride 0.9% 10 ML Syringe FLUSH PRN ×2 (19:39→19:40)
--- NOTE | 2021-07-01 19:54 | CR ---
INDICATION: Chest pain. TECHNIQUE: Portable AP chest radiograph. COMPARISON: 07/16/2020. FINDINGS: Study degraded by underpenetration and low lung volumes. Vascular crowding without definite focal pulmonary opacity. No pneumothorax or sizable pleural effusion. Similar cardiac and mediastinal contours. IMPRESSION: Low volume study without definite acute cardiopulmonary findings. Consider upright PA/lateral radiographs with improved inspiratory effort, as clinically indicated. Dictated by Messi Kim MD @ 07/01/2021 7:53:41 PM Dictated by: Messi Kim MD @ 07/01/2021 19:53:45 (Electronically Signed)
[2021-07-01] MEDS ORDERED: Alum Hydro/Mag Hydro/Simeth XS 15 ML, Metoclopramide 5 MG, Lidocaine 2% 5 ML PO ONE ×3 (20:44)
[2021-07-01 21:14] VITALS: BP 146/66; PULSE 71
== END 2021-07-01 21:14 | disposition home or self-care (01) ==
LOC: MW.ED 18:35
DX: R07.89 Other chest pain (principal); R00.2 Palpitations; I10 Essential (primary) hypertension; I25.2 Old myocardial infarction; J45.909 Unspecified asthma, uncomplicated; M19.90 Unspecified osteoarthritis, unspecified site; E11.40 Type 2 diabetes mellitus with diabetic neuropathy, unspecified; Z88.8 Allergy status to other drugs, medicaments and biological substances; Z88.1 Allergy status to other antibiotic agents; Z88.6 Allergy status to analgesic agent; Z88.0 Allergy status to penicillin; Z79.82 Long term (current) use of aspirin; Z79.4 Long term (current) use of insulin; Z79.899 Other long term (current) drug therapy
CPT/HCPCS: 36415; 71045; 80053; 84484; 85025; 93005; 99285; A9270

== ENCOUNTER 2021-11-11 10:51 | Emergency (ER) | payer MEDICARE, BC ==
[2021-11-11] MEDS ORDERED: Sodium Chloride 0.9% 10 ML Syringe FLUSH PRN (11:00)
[2021-11-11] MEDS ORDERED: Sodium Chloride 0.9% 2.5 ML Syringe FLUSH PRN (11:00)
[2021-11-11 11:47] LABS: CARBON DIOXIDE,CO2 29.9 mmol/L (21.0-32.0); POTASSIUM,K 4.1 mmol/L (3.5-5.1)
[2021-11-11] MEDS ORDERED: Iopamidol 755 MG/ML 500 ML Multipack Bottle IVPUSH STA (12:48)
[2021-11-11] MEDS ORDERED: cloNIDine 0.1 MG Tab PO ONE (13:57)
[2021-11-11 15:29] VITALS: PULSE 72
[2021-11-11 15:40] VITALS: BP 175/60
== END 2021-11-11 15:38 | disposition home or self-care (01) ==
LOC: MW.ED 10:51
DX: R07.89 Other chest pain (principal); I10 Essential (primary) hypertension; E11.9 Type 2 diabetes mellitus without complications; J44.9 Chronic obstructive pulmonary disease, unspecified; E78.00 Pure hypercholesterolemia, unspecified; I25.2 Old myocardial infarction; Z79.4 Long term (current) use of insulin; Z79.82 Long term (current) use of aspirin; Z79.899 Other long term (current) drug therapy; Z88.8 Allergy status to other drugs, medicaments and biological substances; Z88.0 Allergy status to penicillin; Z88.2 Allergy status to sulfonamides
CPT/HCPCS: 36415; 71045; 71275; 80053; 84484; 85025; 85379; 93005; 99285; A9270; J3490; Q9967

== ENCOUNTER 2022-03-24 11:04 | Emergency (ER) | payer MEDICARE, BC ==
[2022-03-24 13:01] VITALS: BP 167/53; PULSE 59
== END 2022-03-24 12:52 | disposition home or self-care (01) ==
LOC: MW.ED 11:04
DX: J40 Bronchitis, not specified as acute or chronic (principal); I11.0 Hypertensive heart disease with heart failure; I50.9 Heart failure, unspecified; E11.40 Type 2 diabetes mellitus with diabetic neuropathy, unspecified; I25.2 Old myocardial infarction; Z88.0 Allergy status to penicillin; Z88.1 Allergy status to other antibiotic agents; Z88.8 Allergy status to other drugs, medicaments and biological substances; Z79.899 Other long term (current) drug therapy; Z79.4 Long term (current) use of insulin; Z79.82 Long term (current) use of aspirin; Z20.822 Contact with and (suspected) exposure to COVID-19
CPT/HCPCS: 71046; 87651; 99283; U0002

== ENCOUNTER 2022-11-07 16:51 | Emergency (ER) | payer MEDICARE, BC ==
[2022-11-07] MEDS ORDERED: Sodium Chloride 0.9% 2.5 ML Syringe FLUSH PRN (17:48)
[2022-11-07] MEDS ORDERED: Sodium Chloride 0.9% 10 ML Syringe FLUSH PRN (17:48)
[2022-11-07 18:05] LABS: BILIRUBIN,URINE NEGATIVE (NEGATIVE); COLOR,URINE YELLOW; GLUCOSE,URINE NEGATIVE (NEGATIVE); KETONES,URINE NEGATIVE (NEGATIVE); LEUKOCYTE ESTERASE,URINE SMALL (NEGATIVE); NITRITE,URINE NEGATIVE (NEGATIVE); OCCULT BLOOD,URINE TRACE-INTACT (NEGATIVE); PROTEIN,URINE TRACE mg/dL (NEGATIVE); UROBILINOGEN,URINE 0.2 EU/dL (<2.0)
[2022-11-07 18:21] LABS: APPEARANCE,URINE HAZY
[2022-11-07 18:22] LABS: BACTERIA,URINE 1+ (NEGATIVE); EPITHELIAL CELLS,URINE RARE (NONE-FEW); RBC,URINE 0-1 (0-2/HPF)
[2022-11-07 18:38] LABS: BASOPHILS PERCENT AUTO 0.3 % (0.0-1.5); EOSINOPHILS ABSOLUTE AUTO 0.3 K/uL (0.0-0.7); EOSINOPHILS PERCENT AUTO 2.2 % (0.0-7.0); HEMATOCRIT 42.5 % (36.0-46.0); HEMOGLOBIN 14.5 g/dL (12.0-16.0); LYMPHOCYTES ABSOLUTE AUTO 1.4 K/uL (0.6-2.4); LYMPHOCYTES PERCENT AUTO 10.9 % (16.0-40.0); MEAN CORPUSCULAR HEMOGLOBIN 34.2 pg (27.0-32.0); MEAN CORPUSCULAR HGB CONC 34.1 g/dL (31.0-37.0); MEAN CORPUSCULAR VOLUME 100.2 fL (80.0-98.0); MONOCYTES PERCENT AUTO 7.4 % (0.0-15.0); NEUTROPHILS ABSOLUTE AUTO 10.4 K/uL (1.4-5.7); NEUTROPHILS PERCENT AUTO 79.2 % (48.0-80.0); NRBC ABSOLUTE 0 K/uL; PLATELET COUNT,PLT 313 K/uL (150-400); RED BLOOD CELL COUNT 4.24 M/uL (4.30-5.90); WHITE BLOOD CELL COUNT,WBC 13.17 K/uL (4.0-11.0)
[2022-11-07] MEDS ORDERED: traMADol 50 MG Tab PO STA (18:48)
[2022-11-07 19:03] LABS: A/G RATIO 0.9 (0.9-1.6); ALBUMIN 3.1 g/dL (3.4-5.0); BILIRUBIN TOTAL 0.5 mg/dL (0.2-1.0); CALCIUM 8.9 mg/dL (8.5-10.1); CARBON DIOXIDE,CO2 29.4 mmol/L (21.0-32.0); CREATININE 1.5 mg/dL (0.6-1.0); EST CRCL DRUG DOSING (CG) 61.23 mL/min; POTASSIUM,K 3.9 mmol/L (3.5-5.1); PROTEIN TOTAL,TP 6.7 g/dL (6.4-8.2)
[2022-11-07 23:21] VITALS: BP 165/85; PULSE 88
== END 2022-11-07 19:57 | disposition home or self-care (01) ==
LOC: MW.ED 16:51
DX: N30.00 Acute cystitis without hematuria (principal); J44.9 Chronic obstructive pulmonary disease, unspecified; I13.0 Hypertensive heart and chronic kidney disease with heart failure and stage 1 through stage 4 chronic kidney disease, or unspecified chronic kidney disease; E11.22 Type 2 diabetes mellitus with diabetic chronic kidney disease; E11.40 Type 2 diabetes mellitus with diabetic neuropathy, unspecified; I50.9 Heart failure, unspecified; N18.32 Chronic kidney disease, stage 3b; Z88.1 Allergy status to other antibiotic agents; Z88.5 Allergy status to narcotic agent; Z88.0 Allergy status to penicillin; Z88.8 Allergy status to other drugs, medicaments and biological substances; Z79.899 Other long term (current) drug therapy; Z79.4 Long term (current) use of insulin; Z79.82 Long term (current) use of aspirin
CPT/HCPCS: 36415; 74176; 80053; 81001; 83690; 85025; 87086; 87088; 87186; 99284; A9270; J3490

== ENCOUNTER 2023-03-30 21:19 | Emergency (ER) | payer MEDICARE, BC ==
[2023-03-30] MEDS ORDERED: Sodium Chloride 0.9% 10 ML Syringe FLUSH PRN (22:05)
[2023-03-30] MEDS ORDERED: Ondansetron 4 MG/2 ML SDV IVPUSH ONE (22:05)
[2023-03-30] MEDS ORDERED: Sodium Chloride 0.9% 2.5 ML Syringe FLUSH PRN (22:05)
[2023-03-30] MEDS ORDERED: Pantoprazole 80 MG in Sodium Chloride 0.9% 10 ML IVPUSH ONE (22:06)
[2023-03-30 22:13] LABS: BASOPHILS ABSOLUTE AUTO 0.1 K/uL (0.0-0.1); BASOPHILS PERCENT AUTO 0.4 % (0.0-1.5); EOSINOPHILS ABSOLUTE AUTO 0.4 K/uL (0.0-0.7); EOSINOPHILS PERCENT AUTO 3.1 % (0.0-7.0); HEMOGLOBIN 13.8 g/dL (12.0-16.0); LYMPHOCYTES ABSOLUTE AUTO 1.6 K/uL (0.6-2.4); LYMPHOCYTES PERCENT AUTO 11.5 % (16.0-40.0); MEAN CORPUSCULAR HEMOGLOBIN 33.7 pg (27.0-32.0); MEAN CORPUSCULAR HGB CONC 33.7 g/dL (31.0-37.0); MEAN CORPUSCULAR VOLUME 100.2 fL (80.0-98.0); MONOCYTES PERCENT AUTO 7.1 % (0.0-15.0); NEUTROPHILS ABSOLUTE AUTO 10.7 K/uL (1.4-5.7); NEUTROPHILS PERCENT AUTO 77.9 % (48.0-80.0); NRBC ABSOLUTE 0 K/uL; NRBC PERCENT 0.2 /100WBC; PLATELET COUNT,PLT 416 K/uL (150-400); RED BLOOD CELL COUNT 4.09 M/uL (4.30-5.90); WHITE BLOOD CELL COUNT,WBC 13.75 K/uL (4.0-11.0)
[2023-03-30] MEDS ORDERED: Sodium Chloride 0.9% 500 ML IV SCH (22:15)
[2023-03-30 22:20] LABS: INR 1.12 (0.86-1.11)
[2023-03-30 22:30] LABS: COLOR,URINE YELLOW; GLUCOSE,URINE NEGATIVE (NEGATIVE); KETONES,URINE TRACE mg/dL (NEGATIVE); LEUKOCYTE ESTERASE,URINE MODERATE (NEGATIVE); NITRITE,URINE POSITIVE (NEGATIVE); OCCULT BLOOD,URINE LARGE (NEGATIVE); PH,URINE 5.5 (5.0-8.0); PROTEIN,URINE 30 mg/dL (NEGATIVE); UROBILINOGEN,URINE 0.2 EU/dL (<2.0)
[2023-03-30 22:31] LABS: APPEARANCE,URINE CLOUDY; BILIRUBIN,URINE SMALL (NEGATIVE)
[2023-03-30 22:38] LABS: BACTERIA,URINE 2+ (NEGATIVE); EPITHELIAL CELLS,URINE MANY (NONE-FEW); RBC,URINE 15-20 (0-2/HPF)
[2023-03-30 22:41] LABS: A/G RATIO 0.8 (0.9-1.6); ALBUMIN 3.1 g/dL (3.4-5.0); BILIRUBIN TOTAL 0.5 mg/dL (0.2-1.0); CALCIUM 9.4 mg/dL (8.5-10.1); CREATININE 1.5 mg/dL (0.6-1.0); EST CRCL DRUG DOSING (CG) 28.26 mL/min; POTASSIUM,K 4.1 mmol/L (3.5-5.1); PROTEIN TOTAL,TP 6.8 g/dL (6.4-8.2)
[2023-03-31 00:04] LABS: LACTIC ACID 2.1 mmol/L (0.4-2.0)
[2023-03-31] MEDS ORDERED: cefTRIAXone 1 GM in Sodium Chloride 0.9% 50 ML IV ONE (00:17)
[2023-03-31] MEDS ORDERED: Carvedilol 25 MG Tab PO ONE (01:17)
[2023-03-31] MEDS ORDERED: traMADol 50 MG Tab PO ONE (01:17)
[2023-03-31 01:25] VITALS: PULSE 68
[2023-03-31 03:53] VITALS: BP 148/53
== END 2023-03-31 03:30 ==
LOC: MW.ED 21:19
DX: K92.2 Gastrointestinal hemorrhage, unspecified (principal); E11.40 Type 2 diabetes mellitus with diabetic neuropathy, unspecified; E78.00 Pure hypercholesterolemia, unspecified; I25.2 Old myocardial infarction; I10 Essential (primary) hypertension; Z79.82 Long term (current) use of aspirin; Z79.4 Long term (current) use of insulin; Z79.899 Other long term (current) drug therapy; Z88.0 Allergy status to penicillin; Z88.8 Allergy status to other drugs, medicaments and biological substances; Z88.5 Allergy status to narcotic agent; Z88.1 Allergy status to other antibiotic agents
CPT/HCPCS: 36415; 71045; 74176; 80053; 81001; 83605; 84484; 85025; 85610; 86850; 86900; 86901; 86902; 87040; 93005; 96365; 96375; 99285; A9270; C9113; J0696; J2405; J3490; J7040; 99284